=== PATIENT | female | born 1945 | race Caucasian/White ===

== ENCOUNTER 2017-04-10 13:42 | Inpatient (IN) | payer OTHER ==
[2017-04-10 13:49] VITALS: BMI 26.3
[2017-04-10 15:12] LABS: BASOPHIL 0.6 % (0-2.0); EOSINOPHIL 1.9 % (0-4.5); MCH 28.7 pg (25.7-33.7); MCHC 33.5 g/dl (32.0-36.0); MEAN CELL VOLUME 85.9 fl (80-96); MEAN PLT VOLUME 7.7 fl (7.5-11.1); PLATELET COUNT 320 K/MM3 (134-434); WHITE BLOOD COUNT 8.8 K/mm3 (4.0-10.0)
--- NOTE | 2017-04-10 15:29 | PDOC ---
History of Present Illness - General History Source: Patient Exam Limitations: No Limitations - History of Present Illness Initial Comments: 04/10/17 15:32 The patient is a 71 year old female with a significant past medical history of hypertension, hyperlipidemia, and chronic headache, who presents to the ER with left sided headache for one day and left sided pain and numbness for five days. Patient states she was doing an XR of her back today and reports she was red to the face with high blood pressure. She states the numbness and pain to the left leg, left arm, left chest wall, and left face happened five days ago. Patient states she was not able to visit Dr. Velasquez for the symptoms. Patient admits she has not taken any HTN medication today. Denies any surgical history Denies fever, chills Denies nausea, vomiting, diarrhea Denies changes in speech Denies changes in vision Denies trauma PCP: Dr. Velasquez <Felisha Sears - Last Filed: 04/10/17 16:18> - General History Source: Patient Exam Limitations: No Limitations <Crystal Romero - Last Filed: 04/10/17 16:39> - General Chief Complaint: Head/Neck problem Stated Complaint: FACE PAIN/left side numbness/headaneche Time Seen by Provider: 04/10/17 14:07 Past History <Felisha Sears - Last Filed: 04/10/17 16:18> - Past Medical History Asthma: Yes CVA: Yes (CVA) Diabetes: Yes GI Disorders: Yes (hiatal hernia) HTN: Yes Hypercholesterolemia: Yes Psychiatric Problems: Yes (ANXIETY/DEPRESSION) Suicide Attempt (Hx): No - Psycho/Social/Smoking Cessation Hx Anxiety: No Suicidal Ideation: No Smoking Status: No Smoking History: Never smoked Have you smoked in the past 12 months: No Number of Cigarettes Smoked Daily: 0 Information on smoking cessation initiated: No Hx Alcohol Use: No Drug/Substance Use Hx: No Substance Use Type: None Hx Substance Use Treatment: No <Crystal Romero - Last Filed: 04/10/17 16:39> - Past Medical History Allergies/Adverse Reactions: Allergies Allergy/AdvReac Type Severity Reaction Status Date / Time Penicillins Allergy Unknown Verified 04/10/17 13:48 Home Medications: Ambulatory Orders Bisacodyl [Laxative] 5 mg PO DAILY PRN 01/28/15 Ibuprofen [Motrin -] 600 mg PO BID 01/28/15 Losartan Potassium 100 mg PO DAILY 01/28/15 Meclizine HCl 25 mg PO TID 01/28/15 Methocarbamol [Robaxin -] 500 mg PO TID PRN #21 tablet 01/28/15 Naproxen [Naprosyn -] 500 mg PO BID PRN #28 tablet 01/28/15 Paroxetine HCl 10 mg PO AM 01/28/15 Sennosides [Senna] 2 tab PO DAILY PRN 01/28/15 Simvastatin [Zocor -] 40 mg PO HS 01/28/15 Aspirin [ASA -] 81 mg PO DAILY 10/22/15 Calcium Carbonate/Mag Hydrox [Mylanta Ultra Chew Tab] 1 each PO PRN PRN Calcium Carbonate/Vitamin D3 [Calcium + Vitamin D Tablet] 1 each PO BID Cetirizine HCl [Wal-Zyr] 10 mg PO DAILY 10/22/15 Chlorthalidone 25 mg PO DAILY 10/22/15 Multivitamins [Tab-A-Vit -] 1 tab PO DAILY 10/22/15 Omeprazole 20 mg PO DAILY 10/22/15 Ranitidine HCl [Zantac] 150 mg PO BID 10/22/15 Acetaminophen [Tylenol -] 650 mg PO Q6H #100 tablet 02/12/16 Review of Systems - Review of Systems Able to Perform ROS?: Yes Comments:: 04/10/17 15:32 GENERAL/CONSTITUTIONAL: No: fever, chills, weakness, loss of appetite. HEAD, EYES, EARS, NOSE AND THROAT: No: change in vision, ear pain, discharge, sore throat, throat swelling. CARDIOVASCULAR: No: chest pain, lightheadedness, palpitations, syncope RESPIRATORY: No: cough, shortness of breath, wheezing, hemoptysis, stridor. GASTROINTESTINAL: No: nausea, vomiting, abdominal cramping, diarrhea, rectal bleeding, constipation. GENITOURINARY: No: dysuria, hematuria, frequency, urgency, flank pain. MUSCULOSKELETAL: (+) numbness and pain to the left leg, left arm, left face, left chest wall, and left face. No: back pain, neck pain, joint pain, muscle swelling or pain SKIN AND BREASTS: No: lesions, pallor, rash or easy bruising. NEUROLOGIC: (+) headache. No: vertigo, paresthesias, weakness ENDOCRINE: No: unexplained weight gain or loss HEMATOLOGIC/LYMPHATIC: No: anemia, easy bleeding, swelling nodes <Uts,Felisha - Last Filed: 04/10/17 16:18> *Physical Exam - Vital Signs Last Vital Signs Temp Pulse Resp BP Pulse Ox 97.8 F 85 19 191/88 99 04/10/17 13:46 04/10/17 13:46 04/10/17 13:46 04/10/17 13:46 04/10/17 13:46 - Physical Exam Comments: 04/10/17 15:34 GENERAL: The patient is in no acute distress. HEAD: Normal with no signs of trauma. EYES: PERRLA, EOMI, sclera anicteric, conjunctiva clear. ENT: Ears normal, nares patent, oropharynx clear without exudates. Moist mucous membranes. NECK: Normal range of motion, supple without lymphadenopathy, JVD, or masses. LUNGS: Breath sounds equal, clear to auscultation bilaterally. No wheezes, and no crackles. HEART:Regular rate and rhythm, normal S1 and S2 without murmur, rub or gallop. ABDOMEN: Soft, nontender, normoactive bowel sounds. No guarding, no rebound. EXTREMITIES: Normal range of motion, no edema. No clubbing or cyanosis. No erythema, or tenderness. NEUROLOGICAL: Cranial nerves II through XII grossly intact. Normal speech. No focal neurological deficits. MUSCULOSKELETAL: 5/5 strength in upper and lower extremities. Decreased sensation in left leg. Back non-tender to palpation, no CVA tenderness SKIN: Warm, Dry, normal turgor, no rashes or lesions noted. <Tntr[place],Felisha - Last Filed: 04/10/17 16:18> - Vital Signs Last Vital Signs Temp Pulse Resp BP Pulse Ox 97.8 F 85 19 191/88 99 04/10/17 13:46 04/10/17 13:46 04/10/17 13:46 04/10/17 13:46 04/10/17 13:46 <Crystal Romero - Last Filed: 04/10/17 16:39> Heart Score/ECG Review #1 ECG reviewed & interpreted by me at: 16:03 General ECG Interpretation: Sinus Rhythm, Normal Rate, Normal Intervals, No acute ischemic changes <Crystal Romero - Last Filed: 04/10/17 16:39> ED Treatment Course - LABORATORY CBC & Chemistry Diagram: 04/10/17 15:00 04/10/17 15:00 - ADDITIONAL ORDERS Additional order review: 04/10/17 15:00 RBC 4.45 MCV 85.9 MCHC 33.5 RDW 13.0 MPV 7.7 Neutrophils % 65.0 Lymphocytes % 27.9 Monocytes % 4.6 Eosinophils % 1.9 Basophils % 0.6 - RADIOLOGY Radiograph Interpretation: 04/10/17 16:[address] impression reported by Dr. Genesis Avendano: Mild volume loss and the chronic microvascular ischemic changes without gross evidence of acute intracranial pathology. Correlate clinically. <Felisha Sears - Last Filed: 04/10/17 16:18> - LABORATORY CBC & Chemistry Diagram: 04/10/17 15:00 04/10/17 15:00 - ADDITIONAL ORDERS Additional order review: 04/10/17 15:00 RBC 4.45 MCV 85.9 MCHC 33.5 RDW 13.0 MPV 7.7 Neutrophils % 65.0 Lymphocytes % 27.9 Monocytes % 4.6 Eosinophils % 1.9 Basophils % 0.6 - RADIOLOGY Radiology Studies Ordered: Category Date Time Status HEAD CT WITHOUT CONTRAST [CT] Stat CT Scan 04/10/17 14:33 Ordered <Crystal Romero - Last Filed: 04/10/17 16:39> Medical Decision Making - Medical Decision Making 04/10/17 15:29 A portion of this note was documented by scribe services under my direction. I have reviewed the details of the note, within reason, and agree with the documentation with the following case summary and management plan written by me. Nursing documentation reviewed and incorporated into medical decision making 04/10/17 16:04 This pt is a 71 yo F h/o Asthma, CVA, DM, HTN, HLD who presents to the ER with a complaint of 1) left sided headache 2) elevated blood pressure 3) numbness of the left side of her body Pt denies head trauma Pt denies fevers or chills Laboratory Tests 04/10/17 04/10/17 15:00 15:00 WBC 8.8 Hgb 12.8 Hct 38.2 Plt Count 320 Neutrophils % 65.0 Lymphocytes % 27.9 Sodium 141 Potassium 3.9 Chloride 105 Carbon Dioxide 27 BUN 13 D Creatinine 0.7 Random Glucose 190 H D Creatine Kinase 64 Troponin I < 0.02 04/10/17 16:[address] 04/10/17 16:[address] consistent with chronic microvascular ischemic changes without acute intracranial patholgy Pt consistently states that she has had left sided facial, arm and leg numbness Based on chart review, she has had similar symptoms in the past Seen by neuro She has followed up in the pt but at some point her neurologist told her that she can not be seen any more because of her insurance Pt also has a headache Given Reglan and Toradol Case reviewed with Dr. Pa Will place on observation for eval of numbness 04/10/17 16:[address] Winslow Will give Aspirin 325mg Will give lipitor 80mg <Crystal Romero - Last Filed: 04/10/17 16:39> *DC/Admit/Observation/Transfer - Attestations Scribe Attestion: 04/10/17 15:35 Documentation prepared by Felisha Sears, acting as medical coding technician for Crystal Romero MD. <Felisha Sears - Last Filed: 04/10/17 16:18> - Discharge Dispostion Admit: Yes <Crystal Romero - Last Filed: 04/10/17 16:39> Diagnosis at time of Disposition: Numbness - Discharge Dispostion Condition at time of disposition: Stable - Referrals Referrals: Pauline Ennis MD [Primary Care Provider] -
[2017-04-10 15:32] LABS: ANION GAP 9 (8-16); BILIRUBIN,TOTAL 0.5 mg/dL (0.2-1.0); CO2 27 mmol/L (21-32); COCKROFT - GAULT 88.5275; CREATININE 0.7 mg/dL (0.55-1.02); GLUCOSE,RANDOM 190 mg/dL (74-106); SGOT/AST 17 U/L (15-37); SGPT/ALT 29 U/L (12-78)
[2017-04-10 15:35] LABS: ALK PHOS 72 U/L (45-117); TOT PROT 8.1 g/dl (6.4-8.2); TROPONIN I < 0.02 ng/ml (0.00-0.05)
[2017-04-10] MEDS ORDERED: KETOROLAC TROMETHAMINE 30 MG/1 ML VIAL IVPUSH ONE (16:25)
[2017-04-10] MEDS ORDERED: METOCLOPRAMIDE HCL INJECTION 10 MG/2 ML VIAL IVPB ONE (16:25)
--- NOTE | 2017-04-10 16:29 | EKG ---
Test Reason : Blood Pressure : / mmHG Vent. Rate : 083 BPM Atrial Rate : 083 BPM P-R Int : 166 ms QRS Dur : 094 ms QT Int : 366 ms P-R-T Axes : 067 016 048 degrees QTc Int : 430 ms NORMAL SINUS RHYTHM NORMAL ECG WHEN COMPARED WITH ECG OF 12-FEB-2016 12:59, NO SIGNIFICANT CHANGE WAS FOUND Confirmed by PRUDENCE HU MD ([id number]) on 04/10/2017 4:29:26 PM Referred By: Confirmed By:PRUDENCE HU MD
[2017-04-10] MEDS ORDERED: KETOROLAC TROMETHAMINE 30 MG/1 ML VIAL ONE (16:54)
[2017-04-10] MEDS ORDERED: METOCLOPRAMIDE HCL INJECTION 10 MG/2 ML VIAL ONE (16:54)
--- NOTE | 2017-04-10 19:23 | CON.NEURO ---
Consult - History of Present Illness History of Present Illness: left sided face arm and leg numbness for five days Hpi 71 year old female history of dm, htn hyperlipidemia and history of stroke had similar symptoms in past. recently she has not her bp medication today. She denies any dysphagia, dysarthria or diplopia or weakness. NO loss of consiouness . She had ct head in er and showed white matter changes. no acute bleed and her bp was high in ED. 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, Vertigo Cardio/Vascular: Yes: HTN, Hyperlipdemia Pulmonary: Yes: Asthma, Other (granulmatous lung disease) Gastrointestinal: Yes: GERD Psych: Yes: Depression, Other (Insomnia) - Alcohol/Substance Use Hx Alcohol Use: No History of Substance Use: reports: None - Smoking History Smoking history: Never smoked Have you smoked in the past 12 months: No Aproximately how many cigarettes per day: 0 - Social History ADL: Independent History of Recent Travel: No Home Medications - Allergies Allergies/Adverse Reactions: Allergies Allergy/AdvReac Type Severity Reaction Status Date / Time Penicillins Allergy Unknown Verified 04/10/17 13:48 - Home Medications Home Medications: Ambulatory Orders Bisacodyl [Laxative] 5 mg PO DAILY PRN 01/28/15 Ibuprofen [Motrin -] 600 mg PO BID 01/28/15 Losartan Potassium 100 mg PO DAILY 01/28/15 Meclizine HCl 25 mg PO TID 01/28/15 Methocarbamol [Robaxin -] 500 mg PO TID PRN #21 tablet 01/28/15 Naproxen [Naprosyn -] 500 mg PO BID PRN #28 tablet 01/28/15 Paroxetine HCl 10 mg PO AM 01/28/15 Sennosides [Senna] 2 tab PO DAILY PRN 01/28/15 Simvastatin [Zocor -] 40 mg PO HS 01/28/15 Aspirin [ASA -] 81 mg PO DAILY 10/22/15 Calcium Carbonate/Mag Hydrox [Mylanta Ultra Chew Tab] 1 each PO PRN PRN Calcium Carbonate/Vitamin D3 [Calcium + Vitamin D Tablet] 1 each PO BID Cetirizine HCl [Wal-Zyr] 10 mg PO DAILY 10/22/15 Chlorthalidone 25 mg PO DAILY 10/22/15 Multivitamins [Tab-A-Vit -] 1 tab PO DAILY 10/22/15 Omeprazole 20 mg PO DAILY 10/22/15 Ranitidine HCl [Zantac] 150 mg PO BID 10/22/15 Acetaminophen [Tylenol -] 650 mg PO Q6H #100 tablet 02/12/16 Physical Exam-Neuro Vital Signs: Vital Signs Temperature 97.9 F 04/10/17 17:23 Pulse Rate 88 04/10/17 17:23 Respiratory Rate 20 04/10/17 17:23 Blood Pressure 147/81 04/10/17 17:23 O2 Sat by Pulse Oximetry (%) 99 04/10/17 17:23 NIH Stroke Scale - Total Score NIH Stroke Scale Score: 0 Imaging - Results Cat Scan: Image Reviewed Assessment/Plan CC left sided face arm and leg numbness for five days Hpi 71 year old female history of dm, htn hyperlipidemia and history of stroke had similar symptoms in past. recently she has not her bp medication today. She denies any dysphagia, dysarthria or diplopia or weakness. NO loss of consiouness . She had ct head in er and showed white matter changes. no acute bleed and her bp was high in ED. Past Medical history as above , she also suffers from anxiety, hiatus hernia and asthma ROS reviwed in chart Home Medication Bisacodyl [Laxative] 5 mg PO DAILY PRN 01/28/15 Ibuprofen [Motrin -] 600 mg PO BID 01/28/15 Losartan Potassium 100 mg PO DAILY 01/28/15 Meclizine HCl 25 mg PO TID 01/28/15 Methocarbamol [Robaxin -] 500 mg PO TID PRN #21 tablet 01/28/15 Naproxen [Naprosyn -] 500 mg PO BID PRN #28 tablet 01/28/15 Paroxetine HCl 10 mg PO AM 01/28/15 Sennosides [Senna] 2 tab PO DAILY PRN 01/28/15 Simvastatin [Zocor -] 40 mg PO HS 01/28/15 Aspirin [ASA -] 81 mg PO DAILY 10/22/15 Calcium Carbonate/Mag Hydrox [Mylanta Ultra Chew Tab] 1 each PO PRN PRN Calcium Carbonate/Vitamin D3 [Calcium + Vitamin D Tablet] 1 each PO BID Cetirizine HCl [Wal-Zyr] 10 mg PO DAILY 10/22/15 Chlorthalidone 25 mg PO DAILY 10/22/15 Multivitamins [Tab-A-Vit -] 1 tab PO DAILY 10/22/15 Omeprazole 20 mg PO DAILY 10/22/15 Ranitidine HCl [Zantac] 150 mg PO BID 10/22/15 Acetaminophen [Tylenol -] 650 mg PO Q6H #100 tablet 02/12/16 Neurological Examination Last Vital Signs Temp Pulse Resp BP Pulse Ox 97.8 F 85 19 191/88 99 04/10/17 13:46 04/10/17 13:46 04/10/17 13:46 04/10/17 13:46 04/10/17 13:46 alert oriented x 3 follow command CN all intact, eomi and no facial asymmetry, no facial numbness Motor is normal sensation is subjective diminisehd on left ue and left lower extremity CT head reviewed Assessment Probable stroke, other possibility include anxiety vs worsenign of old stroke due to uncontrolled HTN Plan 1.MRI of brain to confirm new event 2. carotid ultrasound 3.contineu apsirin and statin for now 4.speech, pt and dvt prophylaxis 5.stroke education Please feel to call me if you ahve any question augustine parker md Neurology attending
[2017-04-11] MEDS ORDERED: BISACODYL 5 MG TABLET.DR (FP) PO PRN (00:46)
[2017-04-11] MEDS ORDERED: SENNOSIDES 8.6MG TABLET (FP) PO PRN (00:46)
[2017-04-11] MEDS ORDERED: ALBUTEROL SO4 2.5/IPRATROPIUM 0.5 INH SOL 3 ML VIAL.NEB. NEB PRN (00:55)
[2017-04-11] MEDS ORDERED: DEXTROSE 5%-0.45% SALINE 1,000 ML IV SCH (01:00)
[2017-04-11] MEDS: ASPIRIN 81 MG CHEWABLE TABLETS PO SCH (09:36)
[2017-04-11] MEDS: LOSARTAN POTASSIUM 50 MG TABLET (FP) PO SCH (09:36)
[2017-04-11] MEDS: LORATADINE 10 MG TABLET PO SCH (09:36)
[2017-04-11] MEDS: PANTOPRAZOLE 20 MG TABLET (FP) PO SCH (09:37)
[2017-04-11] MEDS: RANITIDINE HCL 150 MG TABLET (FP) PO SCH ×2 (09:37→21:46)
[2017-04-11] MEDS: HEPARIN NA (PORCINE) 5,000 UNITS/ML 1ML VIAL SQ SCH ×2 (09:37→21:43)
[2017-04-11] MEDS: CHLORTHALIDONE 25 MG TABLET PO SCH (09:37)
[2017-04-11] MEDS: PARoxetine HCL 10 MG TABLET (FP) PO SCH (09:37)
[2017-04-11] MEDS ORDERED: ALPRAZolam 0.25 MG TABLET PO ONE (12:15)
--- NOTE | 2017-04-11 14:44 | HP ---
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 Cardiovascular: Yes: HTN, Hyperlipdemia Pulmonary: Yes: Asthma, Other (granulmatous lung disease) Gastrointestinal: Yes: GERD Psych: Yes: Depression, Other (Insomnia) - Smoking History Smoking history: Never smoked Have you smoked in the past 12 months: No Aproximately how many cigarettes per day: 0 - Alcohol/Substance Use Hx Alcohol Use: No History of Substance Use: reports: None - Social History ADL: Independent History of Recent Travel: No Home Medications - Allergies Allergies/Adverse Reactions: Allergies Allergy/AdvReac Type Severity Reaction Status Date / Time Penicillins Allergy Unknown Verified 04/10/17 13:48 - Home Medications Home Medications: Ambulatory Orders Bisacodyl [Laxative] 5 mg PO DAILY PRN 01/28/15 Ibuprofen [Motrin -] 600 mg PO BID 01/28/15 Losartan Potassium 100 mg PO DAILY 01/28/15 Meclizine HCl 25 mg PO TID 01/28/15 Methocarbamol [Robaxin -] 500 mg PO TID PRN #21 tablet 01/28/15 Naproxen [Naprosyn -] 500 mg PO BID PRN #28 tablet 01/28/15 Paroxetine HCl 10 mg PO AM 01/28/15 Sennosides [Senna] 2 tab PO DAILY PRN 01/28/15 Simvastatin [Zocor -] 40 mg PO HS 01/28/15 Aspirin [ASA -] 81 mg PO DAILY 10/22/15 Calcium Carbonate/Mag Hydrox [Mylanta Ultra Chew Tab] 1 each PO PRN PRN Calcium Carbonate/Vitamin D3 [Calcium + Vitamin D Tablet] 1 each PO BID Cetirizine HCl [Wal-Zyr] 10 mg PO DAILY 10/22/15 Chlorthalidone 25 mg PO DAILY 10/22/15 Multivitamins [Tab-A-Vit -] 1 tab PO DAILY 10/22/15 Omeprazole 20 mg PO DAILY 10/22/15 Ranitidine HCl [Zantac] 150 mg PO BID 10/22/15 Acetaminophen [Tylenol -] 650 mg PO Q6H #100 tablet 02/12/16 Physical Examination Vital Signs: Vital Signs Temperature 98 F 04/11/17 09:00 Pulse Rate 70 04/11/17 09:00 Respiratory Rate 18 04/11/17 09:00 Blood Pressure 156/70 04/11/17 09:00 O2 Sat by Pulse Oximetry (%) 98 04/11/17 09:00
[2017-04-11] MEDS: ACETAMINOPHEN 325 MG TABLET (FP) PO PRN (18:40)
[2017-04-11] MEDS: ATORVASTATIN CA 20 MG TABLET (FP) PO SCH (21:43)
[2017-04-11] MEDS ORDERED: ATORVASTATIN CA 40 MG TABLET (FP) PO SCH (22:00)
[2017-04-12 07:39] LABS: BASOPHIL 0.4 % (0-2.0); EOSINOPHIL 2.5 % (0-4.5); MCH 29.2 pg (25.7-33.7); MCHC 33.9 g/dl (32.0-36.0); MEAN CELL VOLUME 86.2 fl (80-96); MEAN PLT VOLUME 7.8 fl (7.5-11.1); NEUTROPHILS 58.8 % (42.8-82.8); PLATELET COUNT 299 K/MM3 (134-434); RDW 13.1 % (11.6-15.6); WHITE BLOOD COUNT 8.3 K/mm3 (4.0-10.0)
[2017-04-12 08:06] LABS: ALBUMIN 3.5 g/dl (3.4-5.0); ANION GAP 10 (8-16); CO2 26 mmol/L (21-32); GLUCOSE,RANDOM 136 mg/dL (74-106); SGOT/AST 20 U/L (15-37); SGPT/ALT 27 U/L (12-78)
[2017-04-12 08:08] LABS: ALK PHOS 66 U/L (45-117); BILIRUBIN,TOTAL 0.5 mg/dL (0.2-1.0); COCKROFT - GAULT 103.2835; CREATININE 0.6 mg/dL (0.55-1.02); TOT PROT 7.1 g/dl (6.4-8.2)
[2017-04-12] MEDS ORDERED: PT OWN MED DRAWER 7, Y5N ONE ×2 (10:08→17:57)
[2017-04-12] MEDS: PANTOPRAZOLE 20 MG TABLET (FP) PO SCH (10:19)
[2017-04-12] MEDS: RANITIDINE HCL 150 MG TABLET (FP) PO SCH ×2 (10:19→21:58)
[2017-04-12] MEDS: CHLORTHALIDONE 25 MG TABLET PO SCH (10:20)
[2017-04-12] MEDS: LOSARTAN POTASSIUM 50 MG TABLET (FP) PO SCH (10:20)
[2017-04-12] MEDS: HEPARIN NA (PORCINE) 5,000 UNITS/ML 1ML VIAL SQ SCH ×2 (10:20→21:58)
[2017-04-12] MEDS: ASPIRIN 81 MG CHEWABLE TABLETS PO SCH (10:20)
[2017-04-12] MEDS: LORATADINE 10 MG TABLET PO SCH (10:20)
[2017-04-12] MEDS: PARoxetine HCL 10 MG TABLET (FP) PO SCH (10:21)
--- NOTE | 2017-04-12 15:40 | PN ---
Progress Note, Physician - Current Medication List Current Medications: Active Medications Acetaminophen (Tylenol -) 650 mg PO Q6H PRN Last Admin: 04/11/17 18:40 Dose: 650 mg Albuterol/Ipratropium (Duoneb -) 1 amp NEB Q6H PRN PRN Reason: SHORTNESS OF BREATH Aspirin (Asa -) 81 mg PO DAILY [facility] Last Admin: 04/12/17 10:20 Dose: 81 mg Atorvastatin Calcium (Lipitor -) 20 mg PO HS [facility] Last Admin: 04/11/17 21:43 Dose: 20 mg Atorvastatin Calcium (Lipitor -) 40 mg PO HS [facility] Bisacodyl (Dulcolax -) 5 mg PO DAILY PRN PRN Reason: CONSTIPATION Chlorthalidone (Hygroton -) 25 mg PO DAILY [facility] Last Admin: 04/12/17 10:20 Dose: 25 mg Heparin Sodium (Porcine) (Heparin -) 5,000 unit SQ BID [facility] Last Admin: 04/12/17 10:20 Dose: 5,000 unit Loratadine (Claritin -) 10 mg PO DAILY [facility] Last Admin: 04/12/17 10:20 Dose: 10 mg Losartan Potassium (Cozaar -) 100 mg PO DAILY [facility] Last Admin: 04/12/17 10:20 Dose: 100 mg Pantoprazole Sodium (Protonix -) 20 mg PO DAILY [facility] Last Admin: 04/12/17 10:19 Dose: 20 mg Paroxetine HCl (Paxil -) 10 mg PO DAILY [facility] Last Admin: 04/12/17 10:21 Dose: Not Given Ranitidine HCl (Zantac -) 150 mg PO BID [facility] Last Admin: 04/12/17 10:19 Dose: 150 mg Senna (Senna -) 2 tab PO DAILY PRN PRN Reason: CONSTIPATION Last Admin: 04/11/17 21:52 Dose: 2 tab - Objective Vital Signs: Vital Signs Temperature 98.2 F 04/12/17 14:47 Pulse Rate 87 04/12/17 14:47 Respiratory Rate 20 04/12/17 14:47 Blood Pressure 145/74 04/12/17 14:47 O2 Sat by Pulse Oximetry (%) 97 04/12/17 10:00 Labs: CBC, BMP 04/12/17 05:42 04/12/17 05:42
[2017-04-12] MEDS: ACETAMINOPHEN 325 MG TABLET (FP) PO PRN (19:28)
[2017-04-12] MEDS: ATORVASTATIN CA 20 MG TABLET (FP) PO SCH (21:58)
[2017-04-13] MEDS: LORATADINE 10 MG TABLET PO SCH (09:52)
[2017-04-13] MEDS: ASPIRIN 81 MG CHEWABLE TABLETS PO SCH (09:52)
[2017-04-13] MEDS: HEPARIN NA (PORCINE) 5,000 UNITS/ML 1ML VIAL SQ SCH (09:53)
[2017-04-13] MEDS: PANTOPRAZOLE 20 MG TABLET (FP) PO SCH (09:53)
[2017-04-13] MEDS: CHLORTHALIDONE 25 MG TABLET PO SCH (09:53)
[2017-04-13] MEDS: PARoxetine HCL 10 MG TABLET (FP) PO SCH (09:54)
[2017-04-13] MEDS: RANITIDINE HCL 150 MG TABLET (FP) PO SCH (09:54)
[2017-04-13] MEDS: LOSARTAN POTASSIUM 50 MG TABLET (FP) PO SCH (09:56)
[2017-04-13 19:29] VITALS: BP 142/77; PULSE 78; TEMP 98.8
== END 2017-04-13 18:34 | disposition home or self-care (01) | DRG 58 ==
LOC: JER 13:42 → JERBED 16:39 → J4W 20:29 → OBSVTOIN 04-11 00:52
PROVIDERS: ADMIT Internal Medicine; ATTEND Internal Medicine
DX: R20.0 Anesthesia of skin (principal); I10 Essential (primary) hypertension; E78.5 Hyperlipidemia, unspecified; R51 Headache; E11.9 Type 2 diabetes mellitus without complications; J45.909 Unspecified asthma, uncomplicated; F41.8 Other specified anxiety disorders; K44.9 Diaphragmatic hernia without obstruction or gangrene; G43.809 Other migraine, not intractable, without status migrainosus; R42 Dizziness and giddiness; K21.9 Gastro-esophageal reflux disease without esophagitis; G47.00 Insomnia, unspecified; J98.4 Other disorders of lung; Z86.73 Personal history of transient ischemic attack (TIA), and cerebral infarction without residual deficits
CPT/HCPCS: 36415; 70450-TC; 70551-TC; 71010-TC; 80053; 82550; 84484; 85025; 93005; 93010; 93306-TC; 93880-TC; 97116-GP; 97161-GP; 99283-25; G0378; J1644

== ENCOUNTER 2017-11-04 04:26 | Observation (INO) | payer OTHER ==
--- NOTE | 2017-11-04 04:32 | PDOC ---
History of Present Illness - General History Source: Patient, Family - History of Present Illness Initial Comments: 11/04/17 05:23 Patient is a 72-year-old female with past medical history of coronary artery disease, hypertension, hyperlipidemia, asthma, depression who presents to the emergency department for sudden onset chest pain. Patient states that her pain began 45 minutes prior to her arrival in the emergency department. The pain woke her from sleep. She did not take any medication for her pain. She states that the pain is in the middle of her chest. The pain was so bad that she vomited. Patient states that she should be due for a stress test in the next week or so. Denies shortness of breath, fever, difficulty breathing, palpitations, edema, constipation, diarrhea, frequency, urgency, hematuria. Pt. states she has not taken any of her medications this morning. Pt. does not know what medications she takes. Transfer Table Operator:Dr. Lauren <Hillary De La Rosa - Last Filed: 11/04/17 06:30> <Prabha Miramontes - Last Filed: 11/04/17 11:48> - General Chief Complaint: Chest Pain Stated Complaint: CHEST PAIN Time Seen by Provider: 11/04/17 04:31 Past History - Travel Traveled outside of the country in the last 30 days: No Close contact w/someone who was outside of country & ill: No - Past Medical History Asthma: Yes CVA: Yes (CVA) Diabetes: Yes GI Disorders: Yes (hiatal hernia) HTN: Yes Hypercholesterolemia: Yes Psychiatric Problems: Yes (ANXIETY/DEPRESSION) - Suicide/Smoking/Psychosocial Hx Smoking Status: No Smoking History: Never smoked Have you smoked in the past 12 months: No Number of Cigarettes Smoked Daily: 0 Hx Alcohol Use: No Drug/Substance Use Hx: No Substance Use Type: None Hx Substance Use Treatment: No <Hillary De La Rosa - Last Filed: 11/04/17 06:30> <Prabha Miramontes - Last Filed: 11/04/17 11:48> - Past Medical History Allergies/Adverse Reactions: Allergies Allergy/AdvReac Type Severity Reaction Status Date / Time Penicillins Allergy Unknown Verified 11/04/17 04:38 apple Allergy Uncoded 11/04/17 04:38 Home Medications: Ambulatory Orders Bisacodyl [Laxative] 5 mg PO DAILY PRN 01/28/15 Ibuprofen [Motrin -] 600 mg PO BID 01/28/15 Losartan Potassium 100 mg PO DAILY 01/28/15 Meclizine HCl 25 mg PO TID 01/28/15 Paroxetine HCl 10 mg PO AM 01/28/15 Sennosides [Senna -] 2 tab PO DAILY PRN 01/28/15 Simvastatin [Zocor -] 40 mg PO HS 01/28/15 Aspirin [ASA -] 81 mg PO DAILY 10/22/15 Calcium Carbonate/Mag Hydrox [Mylanta Ultra Chew Tab] 1 each PO PRN PRN Calcium Carbonate/Vitamin D3 [Calcium 600-Vit D3 200 Tablet] 1 each PO BID 10/22 Cetirizine HCl [Wal-Zyr] 10 mg PO DAILY 10/22/15 Chlorthalidone 25 mg PO DAILY 10/22/15 Multivitamins [Multivit ([facility] Formulary)] 1 tab PO DAILY 10/22/15 Omeprazole 20 mg PO DAILY 10/22/15 Ranitidine HCl [Zantac] 150 mg PO BID 10/22/15 Acetaminophen [Tylenol .Regular Strength -] 650 mg PO Q6H #100 tablet 02/12/16 Review of Systems - Review of Systems Able to Perform ROS?: Yes Comments:: 11/04/17 05:20 CONSTITUTIONAL: Absent: fever, chills, diaphoresis, generalized weakness, malaise, loss of appetite HEENT: Absent: rhinorrhea, nasal congestion, throat pain, throat swelling, difficulty swallowing, mouth swelling, ear pain, eye pain, visual Changes CARDIOVASCULAR: Present: chest pain Absent: loss of consciousness, palpitations, irregular heart rate, peripheral edema RESPIRATORY: Absent: cough, shortness of breath, dyspnea with exertion, orthopnea, wheezing, stridor, hemoptysis GASTROINTESTINAL: Absent: abdominal pain, abdominal distension, nausea, vomiting, diarrhea, constipation, melena, hematochezia GENITOURINARY: Absent: dysuria, frequency, urgency, hesitancy, hematuria, flank pain, genital pain MUSCULOSKELETAL: Absent: myalgia, arthralgia, joint swelling SKIN: Absent: rash, itching, pallor HEMATOLOGIC/IMMUNOLOGIC: Absent: easy bleeding, easy bruising, lymphadenopathy, frequent infections ENDOCRINE: Absent: unexplained weight gain, unexplained weight loss, heat intolerance, cold intolerance NEUROLOGIC: Absent: headache, focal weakness or paresthesias, dizziness, unsteady gait, seizure, mental status changes, bladder or bowel incontinence PSYCHIATRIC: Absent: anxiety, depression, suicidal or homicidal ideation, hallucinations. Is the patient limited E[place]an proficient: No <Hillary De La Rosa - Last Filed: 11/04/17 06:30> *Physical Exam - Physical Exam Comments: 11/04/17 05:20 GENERAL: Well developed, well nourished. Awake and alert. Mild distress, vomited in ED HEENT: Normocephalic, atraumatic. PERRLA, EOMI. No conjunctival pallor. Sclera are non- icteric. Moist mucous membranes. Oropharynx is clear. NECK: Supple. Full ROM. No JVD. Carotid pulses 2+ and symmetric, without bruits. No thyromegaly. No lymphadenopathy. CARDIOVASCULAR: Regular rate and rhythm. No murmurs, rubs, or gallops. Distal pulses are 2+ and symmetric. PULMONARY: No evidence of respiratory distress. Lungs clear to auscultation bilaterally. No wheezing, rales or rhonchi. ABDOMINAL: Soft. Non-tender. Non-distended. No rebound or guarding. No organomegaly. Normoactive bowel sounds. MUSCULOSKELETAL Normal range of motion at all joints. No bony deformities or tenderness. No CVA tenderness. EXTREMITIES: No cyanosis. No clubbing. No edema. No calf tenderness. SKIN: Warm and dry. Normal capillary refill. No rashes. No jaundice. NEUROLOGICAL: Alert, awake, appropriate. Cranial nerves 2-12 intact. No deficits to light touch and temperature in face, upper extremities and lower extremities. No motor deficits in the in face, upper extremities and lower extremities. Normoreflexic in the upper and lower extremities. Normal speech. Toes are down- going bilaterally. Gait is normal without ataxia. PSYCHIATRIC: Cooperative. Good eye contact. Appropriate mood and affect. <Hillary De La Rosa - Last Filed: 11/04/17 06:30> - Vital Signs Last Vital Signs Temp Pulse Resp BP Pulse Ox 98.1 F 92 H 18 157/80 100 11/04/17 08:32 11/04/17 08:32 11/04/17 08:32 11/04/17 08:32 11/04/17 08:32 <Prabha Miramontes - Last Filed: 11/04/17 11:48> Heart Score/ECG Review - History History: Slightly suspicious - Electrocardiogram EKG: Normal - Age Age: >/= 65 - Risk Factors Risk Factors Heart Score: Yes Hx Hypercholesterolemia, Yes Hx Hypertension Based on the list above the patient has:: 1-2 risk factors - Troponin Troponin: </= normal limit - Score Heart Score - Total: 3 <Hillary De La Rosa - Last Filed: 11/04/17 06:30> ED Treatment Course - LABORATORY CBC & Chemistry Diagram: 11/04/17 04:41 11/04/17 04:41 <Hillary De La Rosa - Last Filed: 11/04/17 06:30> - LABORATORY CBC & Chemistry Diagram: 11/04/17 04:41 11/04/17 04:41 - ADDITIONAL ORDERS Additional order review: Laboratory Results 11/04/17 11/04/17 11/04/17 09:15 04:42 04:41 PT with INR INR Sodium Potassium Chloride Carbon Dioxide Anion Gap BUN Creatinine Creat Clearance w eGFR Random Glucose Calcium Magnesium Total Bilirubin AST ALT Alkaline Phosphatase Creatine Kinase 86 93 Troponin I < 0.02 < 0.02 Total Protein Albumin Urine Color Ltyellow Urine Appearance Slcloudy Urine pH 6.0 Ur Specific [place] 1.014 Urine Protein 1+ H Urine Glucose (UA) Negative Urine Ketones Negative Urine Blood Negative Urine Nitrite Negative Urine Bilirubin Negative Urine Urobilinogen Negative Ur Leukocyte Esterase 1+ H Urine WBC (Auto) 14 Urine RBC (Auto) 3 Ur Epithelial Cells Few Urine Mucus Rare 11/04/17 11/04/17 04:41 04:41 PT with INR 11.80 INR 1.04 Sodium 138 Potassium 3.8 Chloride 104 Carbon Dioxide 27 Anion Gap 7 L BUN 15 D Creatinine 1.0 D Creat Clearance w eGFR 54.81 Random Glucose 109 H Calcium 8.7 Magnesium 2.3 Total Bilirubin 0.4 AST 19 ALT 30 Alkaline Phosphatase 64 Creatine Kinase Troponin I Total Protein 7.8 Albumin 3.9 Urine Color Urine Appearance Urine pH Ur Specific [place] Urine Protein Urine Glucose (UA) Urine Ketones Urine Blood Urine Nitrite Urine Bilirubin Urine Urobilinogen Ur Leukocyte Esterase Urine WBC (Auto) Urine RBC (Auto) Ur Epithelial Cells Urine Mucus 11/04/17 04:41 RBC 4.22 MCV 86.2 MCHC 33.5 RDW 12.9 MPV 7.4 L Neutrophils % 51.5 Lymphocytes % 38.1 Monocytes % 7.1 Eosinophils % 2.8 Basophils % 0.5 - Medications Given in the ED: ED Medications Discontinued Medications Generic Name Dose Route Start Last Admin Trade Name Millie PRN Reason Stop Dose Admin Aspirin 325 mg 11/04/17 05:19 11/04/17 05:38 Asa - PO 11/04/17 05:20 325 mg ONCE ONE Administration Sodium Chloride 1,000 mls @ 1,000 mls/hr 11/04/17 04:34 11/04/17 05:04 Normal Saline - IV 11/04/17 05:33 1,000 mls/hr ASDIR STA Administration Ondansetron HCl 4 mg 11/04/17 04:34 11/04/17 05:05 Zofran Injection IVPUSH 11/04/17 04:35 4 mg ONCE ONE Administration <Prabha Miramontes - Last Filed: 11/04/17 11:48> Medical Decision Making - Medical Decision Making 11/04/17 05:24 Patient is a 72-year-old female with past medical she of hypertension,coronary artery disease, hyperlipidemia, depression who presents to the emergency department with sudden onset chest pain. We'll rule out ACS at this time. Chest pain is nonreproducible on exam. DDX includes but is not limited to GERD, Explained to patient that we'll most likely need to stay for second set of blood work. EKG shows tachycardia rate of 108 normal sinus rhythm normal axis normal intervals, no acute ST-T wave changes. 1.CBC, CMP, troponin, PT/INR, magnesium UA 2.Zofran, aspirin 3.chest x-ray 4.second troponin at 7:30. 5.reevaluate <Hillary De La Rosa - Last Filed: 11/04/17 06:30> *DC/Admit/Observation/Transfer <Hillary De La Rosa - Last Filed: 11/04/17 06:30> <Prabha Miramontes - Last Filed: 11/04/17 11:48> Diagnosis at time of Disposition: Chest pain - Referrals Referrals: Pauline Ennis MD [Primary Care Provider] - - Patient Instructions - Post Discharge Activity
[2017-11-04] MEDS ORDERED: SODIUM CHLORIDE 1,000 ML IV STA (04:34)
[2017-11-04] MEDS ORDERED: ONDANSETRON 4 MG/2 ML VIAL IVPUSH ONE (04:34)
[2017-11-04] MEDS ORDERED: ONDANSETRON 4 MG/2 ML VIAL ONE ×2 (04:42→04:59)
[2017-11-04 05:06] LABS: BASO % 0.5 % (0-2.0); EOS % 2.8 % (0-4.5); HEMATOCRIT 36.4 % (32.4-45.2); HEMOGLOBIN 12.2 GM/dL (10.7-15.3); LYMPH % 38.1 % (8-40); MCH 28.9 pg (25.7-33.7); MCHC 33.5 g/dl (32.0-36.0); MEAN CELL VOLUME 86.2 fl (80-96); MEAN PLT VOLUME 7.4 fl (7.5-11.1); MONO % 7.1 % (3.8-10.2); NEUT % 51.5 % (42.8-82.8); PLATELET COUNT 297 K/MM3 (134-434); RBC 4.22 M/mm3 (3.60-5.2); RDW 12.9 % (11.6-15.6); WHITE BLOOD COUNT 8.9 K/mm3 (4.0-10.0)
[2017-11-04] MEDS ORDERED: ASPIRIN 81 MG CHEWABLE TABLETS PO ONE (05:19)
[2017-11-04 05:25] LABS: INR 1.04 (0.82-1.09); PROTHROMBIN TIME (PATIENT) 11.8 SEC (9.98-11.88)
[2017-11-04 05:29] LABS: URINE APPEARANCE SLCLOUDY; URINE BILIRUBIN NEGATIVE (NEGATIVE); URINE BLOOD NEGATIVE (NEGATIVE); URINE COLOR LTYELLOW; URINE GLUCOSE (UA) NEGATIVE (NEGATIVE); URINE KETONE NEGATIVE (NEGATIVE); URINE NITRITE NEGATIVE (NEGATIVE); URINE UROBILINOGEN NEGATIVE mg/dL (0.2-1.0)
[2017-11-04] MEDS ORDERED: ASPIRIN 325 MG TABLET ONE (05:31)
[2017-11-04 05:34] LABS: URINE LEUK ESTERASE 2+ (NEGATIVE); URINE PROTEIN 1+ (NEGATIVE)
[2017-11-04 05:36] LABS: EPI CELLS FEW /HPF (FEW); URINE MUCUS RARE
[2017-11-04 05:41] LABS: ALBUMIN 3.9 g/dl (3.4-5.0); ALK PHOS 64 U/L (45-117); ANION GAP 7 (8-16); BILIRUBIN,TOTAL 0.4 mg/dL (0.2-1.0); BLOOD UREA NITROGEN 15 mg/dL (7-18); CALCIUM 8.7 mg/dL (8.5-10.1); CHLORIDE 104 mmol/L (98-107); CO2 27 mmol/L (21-32); GLUCOSE,RANDOM 109 mg/dL (74-106); MAGNESIUM 2.3 mg/dL (1.8-2.4); POTASSIUM 3.8 mmol/L (3.5-5.1); SGOT/AST 19 U/L (15-37); SGPT/ALT 30 U/L (12-78); SODIUM 138 mmol/L (136-145); TOT PROT 7.8 g/dl (6.4-8.2)
--- NOTE | 2017-11-04 07:43 | PDOC ---
ED Treatment Course - LABORATORY CBC & Chemistry Diagram: 11/04/17 04:41 11/04/17 04:41 - ADDITIONAL ORDERS Additional order review: Laboratory Results 11/04/17 11/04/17 11/04/17 04:42 04:41 04:41 PT with INR INR Sodium 138 Potassium 3.8 Chloride 104 Carbon Dioxide 27 Anion Gap 7 L BUN 15 D Creatinine 1.0 D Creat Clearance w eGFR 54.81 Random Glucose 109 H Calcium 8.7 Magnesium 2.3 Total Bilirubin 0.4 AST 19 ALT 30 Alkaline Phosphatase 64 Creatine Kinase 93 Troponin I < 0.02 Total Protein 7.8 Albumin 3.9 Urine Color Ltyellow Urine Appearance Slcloudy Urine pH 6.0 Ur Specific [place] 1.014 Urine Protein 1+ H Urine Glucose (UA) Negative Urine Ketones Negative Urine Blood Negative Urine Nitrite Negative Urine Bilirubin Negative Urine Urobilinogen Negative Urine WBC (Auto) 14 Urine RBC (Auto) 3 Ur Epithelial Cells Few Urine Mucus Rare 11/04/17 04:41 PT with INR 11.80 INR 1.04 Sodium Potassium Chloride Carbon Dioxide Anion Gap BUN Creatinine Creat Clearance w eGFR Random Glucose Calcium Magnesium Total Bilirubin AST ALT Alkaline Phosphatase Creatine Kinase Troponin I Total Protein Albumin Urine Color Urine Appearance Urine pH Ur Specific [place] Urine Protein Urine Glucose (UA) Urine Ketones Urine Blood Urine Nitrite Urine Bilirubin Urine Urobilinogen Urine WBC (Auto) Urine RBC (Auto) Ur Epithelial Cells Urine Mucus 11/04/17 04:41 RBC 4.22 MCV 86.2 MCHC 33.5 RDW 12.9 MPV 7.4 L Neutrophils % 51.5 Lymphocytes % 38.1 Monocytes % 7.1 Eosinophils % 2.8 Basophils % 0.5 - Medications Given in the ED: ED Medications Discontinued Medications Generic Name Dose Route Start Last Admin Trade Name Freq PRN Reason Stop Dose Admin Aspirin 325 mg 11/04/17 05:19 11/04/17 05:38 Asa - PO 11/04/17 05:20 325 mg ONCE ONE Administration Sodium Chloride 1,000 mls @ 1,000 mls/hr 11/04/17 04:34 11/04/17 05:04 Normal Saline - IV 11/04/17 05:33 1,000 mls/hr ASDIR STA Administration Ondansetron HCl 4 mg 11/04/17 04:34 11/04/17 05:05 Zofran Injection IVPUSH 11/04/17 04:35 4 mg ONCE ONE Administration Progress Note - Progress Note Progress Note: I have received report from LEONCIO De La Rosa regarding this patient. Pt's initial chief complaint: chest pain Pt's work up completed prior to sign out: labs, CXR, EKG Pt treatment given from prior staff: Zofran, Aspirin, IV fluids Pt plan to be completed: Awaiting 2nd troponin then will call Dr. Lauren. Dispo: Pending Medical Decision Making - Medical Decision Making A/P: 72 y/o afebrile female with PMH CAD, HTN, HLD, asthma, depression presented to the ER with sudden onset chest pain. The patient was initially assessed by LEONCIO De La Rosa. EKG, labs, CXR were all performed and were WNLs. Awaiting 2nd troponin then will call patient's coating inspector, Dr. Lauren. 2nd troponin negative. Spoke with Dr. Oh, covering for Dr. Lauren. She would like the patient to remain in ED obs until Dr. Lauren can see her at 2pm and dispo. The patient is aware of this plan and is amenable. She states she no longer has any chest pain. Spoke with Dr. Lauren. He states the patient has very poor follow up and is scheduled for a stress test in his office on 11/10/17. He is ok with her being discharged home provided she agrees to keep her appointment for her stress test and to call him immediately if her chest pain returns. Spoke with ALEXANDRO Kauffman, admitting hospitalist, and she is not comfortable sending her home so we will send her to tele obs. All plans and instructions were explained to the patient in Armenian. *DC/Admit/Observation/Transfer Diagnosis at time of Disposition: Chest pain Qualifiers: Chest pain type: unspecified Qualified Code(s): R07.9 - Chest pain, unspecified - Discharge Dispostion Condition at time of disposition: Improved Admit: Yes - Referrals - Patient Instructions - Post Discharge Activity
--- NOTE | 2017-11-04 12:49 | HP ---
CHIEF COMPLAINT: Chest pain HISTORY OF PRESENT ILLNESS: 72 year-old female with a PMH significant for HTN, HLD, asthma, granulomatous lung disease, GERD, and depression. Patient presented to the ED today with a complaint of severe, non-radiating mid-sternal chest pain that awoke her from sleep at arond 3:30am. She described the pain as burning with a sour taste in her mouth. She also felt cold and SOB. The pain lasted about 10 minutes. She vomited and the pain resolved. ER course was notable for: (1) Troponins neg x 2 (2) CXR unremarkable (3) ECG: sinus rhythm, no indication of acute ischemic event Recent Travel: No PAST MEDICAL HISTORY: Hypertension Hyperlipidemia Fatty liver Hiatal hernia GERD Asthma Chronic granulomatous lung disease Spinal stenosis Restless leg syndrome Anxiety/depression Vertigo Migraine PAST SURGICAL HISTORY: None reported Social History Smoking: no Alcohol: no Drugs: no Family History: Allergies Penicillins Allergy (Unknown, Verified 11/04/17 04:38) apple Allergy (Uncoded 11/04/17 04:38) HOME MEDICATIONS: Medication Instructions Recorded Bisacodyl [Laxative] 5 mg PO DAILY PRN 01/28/15 Ibuprofen [Motrin -] 600 mg PO BID 01/28/15 Losartan Potassium 100 mg PO DAILY 01/28/15 Meclizine HCl 25 mg PO TID 01/28/15 Paroxetine HCl 10 mg PO AM 01/28/15 Sennosides [Senna -] 2 tab PO DAILY PRN 01/28/15 Simvastatin [Zocor -] 40 mg PO HS 01/28/15 Aspirin [ASA -] 81 mg PO DAILY 10/22/15 Calcium Carbonate/Mag Hydrox 1 each PO PRN PRN 10/22/15 [Mylanta Ultra Chew Tab] Calcium Carbonate/Vitamin D3 1 each PO BID 10/22/15 [Calcium 600-Vit D3 200 Tablet] Cetirizine HCl [Wal-Zyr] 10 mg PO DAILY 10/22/15 Chlorthalidone 25 mg PO DAILY 10/22/15 Multivitamins [Multivit ([facility] 1 tab PO DAILY 10/22/15 Formulary)] Omeprazole 20 mg PO DAILY 10/22/15 Ranitidine HCl [Zantac] 150 mg PO BID 10/22/15 Acetaminophen [Tylenol .Regular 650 mg PO Q6H #100 tablet 02/12/16 Strength -] REVIEW OF SYSTEMS CONSTITUTIONAL: Absent: fever, chills, diaphoresis, generalized weakness, malaise, loss of appetite, weight change HEENT: Absent: rhinorrhea, nasal congestion, throat pain, throat swelling, difficulty swallowing, mouth swelling, ear pain, eye pain, visual changes CARDIOVASCULAR: +chest pain, SOB Absent: syncope, palpitations, irregular heart rate, lightheadedness, peripheral edema RESPIRATORY: Absent: cough, shortness of breath, dyspnea with exertion, orthopnea, wheezing, stridor, hemoptysis GASTROINTESTINAL: Absent: abdominal pain, abdominal distension, nausea, vomiting, diarrhea, constipation, melena, hematochezia GENITOURINARY: Absent: dysuria, frequency, urgency, hesitancy, hematuria, flank pain, genital pain MUSCULOSKELETAL: Absent: myalgia, arthralgia, joint swelling, back pain, neck pain SKIN: Absent: rash, itching, pallor HEMATOLOGIC/IMMUNOLOGIC: Absent: easy bleeding, easy bruising, lymphadenopathy, frequent infections ENDOCRINE: Absent: unexplained weight gain, unexplained weight loss, heat intolerance, cold intolerance NEUROLOGIC: Absent: headache, focal weakness or paresthesias, dizziness, unsteady gait, seizure, mental status changes, bladder or bowel incontinence PSYCHIATRIC: Absent: anxiety, depression, suicidal or homicidal ideation, hallucinations. PHYSICAL EXAMINATION Vital Signs - 24 hr 11/04/17 11/04/17 04:39 08:32 Temperature 98.3 F 98.1 F Pulse Rate 100 H 92 H Pulse Rate [ 92 H Apical] Respiratory 20 18 Rate Blood Pressure 183/89 Blood Pressure 157/80 [Left Arm] O2 Sat by Pulse 97 100 Oximetry (%) GENERAL: Awake, alert, and fully oriented, in no acute distress. HEAD: Normal with no signs of trauma. EYES: Pupils equal, round and reactive to light, extraocular movements intact, sclera anicteric, conjunctiva clear. No lid lag. EARS, NOSE, THROAT: Ears normal, nares patent, oropharynx clear without exudates. Moist mucous membranes. NECK: Normal range of motion, supple without lymphadenopathy, JVD, or masses. LUNGS: Breath sounds equal, clear to auscultation bilaterally. No wheezes, and no crackles. No accessory muscle use. HEART: Regular rate and rhythm, normal S1 and S2 without murmur, rub or gallop. ABDOMEN: Soft, nontender, not distended, normoactive bowel sounds, no guarding, no rebound, no masses. No hepatomegaly or splenomegaly. MUSCULOSKELETAL: Normal range of motion at all joints. No bony deformities or tenderness. No CVA tenderness. UPPER EXTREMITIES: 2+ pulses, warm, well-perfused. No cyanosis. No clubbing. No peripheral edema. LOWER EXTREMITIES: 2+ pulses, warm, well-perfused. No calf tenderness. No peripheral edema. NEUROLOGICAL: Cranial nerves II-XII intact. Normal speech. Moves all extremities freely. PSYCHIATRIC: Cooperative. Good eye contact. Appropriate mood and affect. SKIN: Warm, dry, normal turgor Laboratory Results - last 24 hr 11/04/17 11/04/17 11/04/17 04:41 04:41 04:41 WBC 8.9 RBC 4.22 Hgb 12.2 Hct 36.4 MCV 86.2 MCH 28.9 MCHC 33.5 RDW 12.9 Plt Count 297 MPV 7.4 L Neutrophils % 51.5 Lymphocytes % 38.1 Monocytes % 7.1 Eosinophils % 2.8 Basophils % 0.5 PT with INR 11.80 INR 1.04 Sodium 138 Potassium 3.8 Chloride 104 Carbon Dioxide 27 Anion Gap 7 L BUN 15 D Creatinine 1.0 D Creat Clearance w eGFR 54.81 Random Glucose 109 H Calcium 8.7 Magnesium 2.3 Total Bilirubin 0.4 AST 19 ALT 30 Alkaline Phosphatase 64 Creatine Kinase Troponin I Total Protein 7.8 Albumin 3.9 Urine Color Urine Appearance Urine pH Ur Specific [place] Urine Protein Urine Glucose (UA) Urine Ketones Urine Blood Urine Nitrite Urine Bilirubin Urine Urobilinogen Ur Leukocyte Esterase Urine WBC (Auto) Urine RBC (Auto) Ur Epithelial Cells Urine Mucus 11/04/17 11/04/17 11/04/17 04:41 04:42 09:15 WBC RBC Hgb Hct MCV MCH MCHC RDW Plt Count MPV Neutrophils % Lymphocytes % Monocytes % Eosinophils % Basophils % PT with INR INR Sodium Potassium Chloride Carbon Dioxide Anion Gap BUN Creatinine Creat Clearance w eGFR Random Glucose Calcium Magnesium Total Bilirubin AST ALT Alkaline Phosphatase Creatine Kinase 93 86 Troponin I < 0.02 < 0.02 Total Protein Albumin Urine Color Ltyellow Urine Appearance Slcloudy Urine pH 6.0 Ur Specific [place] 1.014 Urine Protein 1+ H Urine Glucose (UA) Negative Urine Ketones Negative Urine Blood Negative Urine Nitrite Negative Urine Bilirubin Negative Urine Urobilinogen Negative Ur Leukocyte Esterase 1+ H Urine WBC (Auto) 14 Urine RBC (Auto) 3 Ur Epithelial Cells Few Urine Mucus Rare ASSESSMENT/PLAN 72 year-old female with a PMH significant for HTN, HLD, asthma, granulomatous lung disease, GERD, and depression. Placed on observation for chest pain. Chest pain --r/o ACS --troponins neg x 2 --CXR unremarkable --ECG not suggestive of acute ischemic event --continue ASA, lipitor --stress tomorrow --Dr. Lauren following --r/o arrhythmia --telemetry monitoring --r/o GI etiology --will need outpatient followup with Dr. Winkler Hypertension --continue Losartan, chlorthalidone Hyperlipidemia --continue Lipitor Depression --continue paroxetine GERD --protonix PO Asthma/granulomatous lung disease --stable FEN Fluids: PO intake adequate Electrolytes: replete as indicated Nutrition: NPO after midnight for stress DVT prophylaxis: oob, ambulation, expected short stay Dispo: continues to require observation. Full code. Visit type - Emergency Visit Emergency Visit: Yes ED Registration Date: 11/04/17 Care time: The patient presented to the Emergency Department on the above date and was hospitalized for further evaluation of their emergent condition. - New Patient This patient is new to me today: Yes Date on this admission: 11/04/17 - Critical Care Critical Care patient: No
[2017-11-04 16:36] VITALS: BMI 12.8
--- NOTE | 2017-11-04 18:25 | CON.CARD ---
Consult Consult Specialty:: cardio Referred by:: hospitalist Reason for Consultation:: cp - History of Present Illness Chief Complaint: cp History of Present Illness: 72 yo female came to ER with cp. (hx obtained from family at bedside translating) awoke around 3:30 am with severe pain in center chest. non-radiating. + associated burning quality of pain and sour taste in her mouth. + associated feeling of very cold throughout her body and sob. pain resolved after approx 10 min. she vomited at that time. had this pain 2 other times when came to hospital in past (no PA or evidence of unstable angina on those prior admits) has "gastritis" and says complies with daily nexium, per dr rivers. feels very bloated/full like food is stuck when eats something. has h/o atypical cp likely mskel in past. however also poor historian, recently saw me in office with ? exertional quality to cp--scheduled for stress test 11/10. 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: Yes: Migraine, Vertigo Cardio/Vascular: Yes: HTN, Hyperlipdemia Pulmonary: Yes: Asthma, Other (granulmatous lung disease) Gastrointestinal: Yes: GERD Psych: Yes: Depression, Other (Insomnia) - Alcohol/Substance Use Hx Alcohol Use: No History of Substance Use: reports: None - Smoking History Smoking history: Never smoked Have you smoked in the past 12 months: No Aproximately how many cigarettes per day: 0 - Social History ADL: Independent History of Recent Travel: No Home Medications - Allergies Allergies/Adverse Reactions: Allergies Allergy/AdvReac Type Severity Reaction Status Date / Time Penicillins Allergy Unknown Verified 11/04/17 04:38 apple Allergy Uncoded 11/04/17 04:38 - Home Medications Home Medications: Ambulatory Orders Bisacodyl [Laxative] 5 mg PO DAILY PRN 01/28/15 Ibuprofen [Motrin -] 600 mg PO BID 01/28/15 Losartan Potassium 100 mg PO DAILY 01/28/15 Meclizine HCl 25 mg PO TID 01/28/15 Paroxetine HCl 10 mg PO AM 01/28/15 Sennosides [Senna -] 2 tab PO DAILY PRN 01/28/15 Simvastatin [Zocor -] 40 mg PO HS 01/28/15 Aspirin [ASA -] 81 mg PO DAILY 10/22/15 Calcium Carbonate/Mag Hydrox [Mylanta Ultra Chew Tab] 1 each PO PRN PRN Calcium Carbonate/Vitamin D3 [Calcium 600-Vit D3 200 Tablet] 1 each PO BID 10/22 Cetirizine HCl [Wal-Zyr] 10 mg PO DAILY 10/22/15 Chlorthalidone 25 mg PO DAILY 10/22/15 Multivitamins [Multivit ([facility] Formulary)] 1 tab PO DAILY 10/22/15 Omeprazole 20 mg PO DAILY 10/22/15 Ranitidine HCl [Zantac] 150 mg PO BID 10/22/15 Acetaminophen [Tylenol .Regular Strength -] 650 mg PO Q6H #100 tablet 02/12/16 Family Disease History - Family Disease History Family History: Denies (no known cmp) Review of Systems - Review of Systems Constitutional: denies: Chills, Fever Eyes: denies: Eye Pain HENT: denies: Nasal Congestion Neck: denies: Stiffness Cardiovascular: denies: Palpitations Respiratory: denies: Orthopnea, PND Gastrointestinal: denies: Diarrhea, Rectal Bleeding Genitourinary: denies: Burning, Hematuria Musculoskeletal: denies: Muscle Pain Integumentary: denies: Rash Neurological: denies: Numbness, Seizure, Syncope Endocrine: denies: Excessive Sweating Hematology/Lymphatic: denies: Excessive Bleeding Vital Signs: Vital Signs Temperature 98.1 F 11/04/17 08:32 Pulse Rate 87 11/04/17 16:32 Respiratory Rate 18 11/04/17 16:32 Blood Pressure 159/74 11/04/17 16:32 O2 Sat by Pulse Oximetry (%) 98 11/04/17 16:32 Constitutional: Yes: Well Nourished, No Distress Eyes: No: Sclera Icterus HENT: No: Nasal Congestion Neck: No: Decreased ROM Respiratory: Yes: CTA Bilaterally. No: Accessory Muscle Use, Rales, Wheezes Gastrointestinal: Yes: Normal Bowel Sounds. No: Distention, Hepatomegaly, Palpable Mass, Tenderness Cardiovascular: Yes: Regular Rate and Rhythm JVD: No Carotid Bruit: No PMI: Non-Displaced Heart Sounds: Yes: S1, S2. No: Gallop Murmur: No: Systolic Murmur, Diastolic Murmur Musculoskeletal: Yes: Other (No kyphosis) Extremities: No: Cold, Cyanosis Edema: No Peripheral Pulses: 2+ Left Carotid, 2+ Right Carotid, 2+ Left Doralis Pedis, 2+ Right Dorsalis Pedis Integumentary: No: Jaundice Neurological: Yes: Alert, Oriented (x3) Psychiatric: No: Agitated - Other Data Labs, Other Data: CBC, BMP 11/04/17 04:41 11/04/17 04:41 INR, PTT INR 1.04 (0.82-1.09) 11/04/17 04:41 Troponin, BNP 11/04/17 11/04/17 04:41 09:15 Troponin I < 0.02 < 0.02 Troponin, BNP 11/04/17 11/04/17 04:41 09:15 Troponin I < 0.02 < 0.02 Laboratory Tests 11/04/17 11/04/17 11/04/17 04:41 04:41 04:41 WBC 8.9 Hgb 12.2 Plt Count 297 Sodium 138 Potassium 3.8 Carbon Dioxide 27 BUN 15 D Creatinine 1.0 D AST 19 ALT 30 Troponin I < 0.02 11/04/17 09:15 WBC Hgb Plt Count Sodium Potassium Carbon Dioxide BUN Creatinine AST ALT Troponin I < 0.02 Assessment/Plan MPI 01/16 (persantine): no STs, normal perfusion/no ischemia. nl EF EKG 11/04: NSR, WNL CXR: clear lungs/pleura chest pain: -sx's most likely GERD vs ? gastroparesis related by history (see HPI) including assctd sour taste in mouth, then vomited. -normal ecg, trop neg x 2--ACS unlikely -clinical picture not c/w aortic dissection -however in light of recent sx's of ? exertional cp as outpatient with planned stress test, will proceed with stress test. d/w'd pt and family at bedside--she is not confident she will be able to come for 11/10 stress test appt if there are transportation issues or bad weather, hence i rec she stay and have it done tomorrow. -if stress test negative, no futher CV w/u needed--pt should f/u with dr rivers : ? gastric emptying study, ? empiric change in meds HTN: -bp mildly elevated in ER -resume home meds, observe trend HPL: -cont home regimen h/o CVA?: -details uncertain -MRI here 2016 no acute or old ischemic infarct
[2017-11-04] MEDS ORDERED: SENNOSIDES 8.6MG TABLET (FP) PO PRN (23:05)
[2017-11-05] MEDS ORDERED: MAG HYDROX/AL HYDROX/SIMETH 30 ML UNIT-DOSE CUP PO ONE ×2 (01:00→21:24)
[2017-11-05] MEDS: PARoxetine HCL 20 MG TABLET (FP) PO SCH (06:33)
--- NOTE | 2017-11-05 09:41 | EKG ---
Test Reason : Blood Pressure : / mmHG Vent. Rate : 099 BPM Atrial Rate : 099 BPM P-R Int : 178 ms QRS Dur : 100 ms QT Int : 348 ms P-R-T Axes : 061 011 055 degrees QTc Int : 446 ms NORMAL SINUS RHYTHM NORMAL ECG Confirmed by MD Carreon Edward ([id number]) on 11/05/2017 9:41:26 AM Referred By: Confirmed By:Andrew Carreon MD
[2017-11-05] MEDS ORDERED: PATIENT'S OWN MEDICATION (NON-FORMULARY) (Losartan Potassium [Losartan Potassium] 100 MG) PO SCH (10:00)
[2017-11-05] MEDS ORDERED: LOSARTAN POTASSIUM 100 MG TABLET PO SCH (10:00)
[2017-11-05] MEDS ORDERED: REGADENOSON 0.4 MG/5 ML PRE-FILLED SYRINGE IVPUSH ONE ×2 (10:39→11:00)
[2017-11-05] MEDS: CHLORTHALIDONE 25 MG TABLET PO SCH ×2 (14:35→15:32)
[2017-11-05] MEDS: ASPIRIN 81 MG CHEWABLE TABLETS PO SCH (14:35)
[2017-11-05] MEDS: PANTOPRAZOLE 40 MG TABLET (FP) PO SCH (14:36)
[2017-11-05] MEDS: LOSARTAN POTASSIUM 50 MG TABLET (FP) PO SCH (15:31)
--- NOTE | 2017-11-05 16:07 | PN ---
Progress Note (short form) - Note Progress Note: Chief Complaint: cp History of Present Illness: Had stress test today. Endorsed heaviness/tiredness in chest. Symptoms currently improved, almost completely resolved. no sob, palps, dizziness. Current Medications Aspirin (Asa -) 81 mg PO DAILY [facility] Last Admin: 11/05/17 14:35 Dose: 81 mg Atorvastatin Calcium (Lipitor -) 40 mg PO HS [facility] Chlorthalidone (Hygroton -) 25 mg PO DAILY [facility] Last Admin: 11/05/17 15:32 Dose: Not Given Losartan Potassium (Cozaar -) 100 mg PO DAILY [facility] Last Admin: 11/05/17 15:31 Dose: Not Given Pantoprazole Sodium (Protonix -) 40 mg PO DAILY [facility] Last Admin: 11/05/17 14:36 Dose: 40 mg Paroxetine HCl (Paxil -) 10 mg PO AM [facility] Last Admin: 11/05/17 06:33 Dose: 10 mg Senna (Senna -) 2 tab PO DAILY PRN PRN Reason: CONSTIPATION Vital Signs - 24 hr 11/04/17 11/04/17 11/05/17 16:32 23:30 00:33 Temperature 98.7 F 97.6 F Pulse Rate 87 75 Pulse Rate [ 79 Apical] Respiratory 18 18 18 Rate Blood Pressure 159/74 160/80 Blood Pressure 152/73 [Left Arm] O2 Sat by Pulse 98 98 Oximetry (%) 11/05/17 11/05/17 11/05/17 01:21 02:00 06:00 Temperature 99.2 F 99.3 F Pulse Rate 76 79 Pulse Rate [ Apical] Respiratory 18 20 Rate Blood Pressure 127/74 123/61 Blood Pressure [Left Arm] O2 Sat by Pulse 98 Oximetry (%) 11/05/17 11/05/17 10:00 14:00 Temperature 99.6 F 97.5 F L Pulse Rate 77 96 H Pulse Rate [ Apical] Respiratory 20 18 Rate Blood Pressure 142/62 151/69 Blood Pressure [Left Arm] O2 Sat by Pulse Oximetry (%) Intake & Output 11/03/17 11/04/17 11/05/17 11/06/17 07:59 07:59 07:59 07:59 Intake Total 350 Balance 350 Weight 160 lb 164 lb 8 oz Constitutional: Yes: Well Nourished, No Distress Eyes: No: Sclera Icterus HENT: No: Nasal Congestion Neck: No: Decreased ROM Respiratory: Yes: CTA Bilaterally. No: Accessory Muscle Use, Rales, Wheezes Gastrointestinal: Yes: Normal Bowel Sounds. No: Distention, Hepatomegaly, Palpable Mass, Tenderness Cardiovascular: Yes: Regular Rate and Rhythm JVD: No Carotid Bruit: No PMI: Non-Displaced Heart Sounds: Yes: S1, S2. No: Gallop Murmur: No: Systolic Murmur, Diastolic Murmur Musculoskeletal: Yes: Other (No kyphosis) Extremities: No: Cold, Cyanosis Edema: No Peripheral Pulses: 2+ Left Carotid, 2+ Right Carotid, 2+ Left Doralis Pedis, 2+ Right Dorsalis Pedis Integumentary: No: Jaundice Neurological: Yes: Alert, Oriented (x3) Psychiatric: No: Agitated - Other Data Labs, Other Data: CBC, BMP 11/04/17 04:41 11/04/17 04:41 Assessment/Plan EKG 11/04: NSR, WNL tele: sr MPI 11/2017: prelim report. small area of mildly intense myocardial ischemia of inferior wall. Small area of severely intense myocardial ischemia, apex. EF 64% MPI 01/16 (persantine): no STs, normal perfusion/no ischemia. nl EF CXR: clear lungs/pleura 72 yo with h/o htn, hl, dm?, h/o cva? details obscure, hiatal hernia/gastritis, asthma/chronic granulomatous and interstitital findings on CT chest, fatty liver , spinal stenosis, RLS, anxiety/depression vertigo who p/w cp. chest pain: -sx's most likely GERD vs ? gastroparesis related by history (see HPI) including assctd sour taste in mouth, then vomited. -normal ecg, trop neg x 2--ACS unlikely -clinical picture not c/w aortic dissection -however in light of recent sx's of ? exertional cp as outpatient with planned stress test, will proceed with stress test. d/w'd pt and family at bedside--she is not confident she will be able to come for 11/10 stress test appt if there are transportation issues or bad weather, hence i rec she stay and have it done tomorrow. --pt should f/u with dr rivers: ? gastric emptying study, - 1/3: stress test positive for ischemia, low risk findings. Discussed options of medical management vs. invasive evaluation. Patient would prefer to pursue medical management first. Will add anti-anginal tonight. Norvasc may have worsened le edema in the past --> Will start toprol 25 mg/day. (short acting dose tonight). - con't asa,s tatin HTN: -bp mildly elevated in ER -meds as above. HPL: -cont home regimen h/o CVA?: -details uncertain -MRI here 2016 no acute or old ischemic infarct, con't asa, statin
[2017-11-05] MEDS ORDERED: METOPROLOL TARTRATE 25 MG TABLET (FP) PO ONE (22:00)
[2017-11-05] MEDS ORDERED: ATORVASTATIN CA 40 MG TABLET (FP) PO SCH (22:00)
[2017-11-06] MEDS: PARoxetine HCL 20 MG TABLET (FP) PO SCH ×2 (05:33→06:27)
[2017-11-06 05:38] VITALS: BP 140/72; PULSE 66; TEMP 97.7
--- NOTE | 2017-11-06 08:56 | PN ---
Physical Exam: SUBJECTIVE: Patient seen and examined OBJECTIVE: Vital Signs Period Temp Pulse Resp BP Sys/Anne Pulse Ox Last 24 Hr 97.0 F-99.6 F 66-96 18-20 121-153/61-72 99 GENERAL: The patient is awake, alert, and fully oriented, in no acute distress. HEAD: Normal with no signs of trauma. EYES: PERRL, extraocular movements intact, sclera anicteric, conjunctiva clear. No ptosis. ENT: Ears normal, nares patent, oropharynx clear without exudates, moist mucous membranes. NECK: Trachea midline, full range of motion, supple. LUNGS: Breath sounds equal, clear to auscultation bilaterally, no wheezes, no crackles, no accessory muscle use. HEART: Regular rate and rhythm, S1, S2 without murmur, rub or gallop. ABDOMEN: Soft, nontender, nondistended, normoactive bowel sounds, no guarding, no rebound, no hepatosplenomegaly, no masses. EXTREMITIES: 2+ pulses, warm, well-perfused, no edema. NEUROLOGICAL: Cranial nerves II through XII grossly intact. Normal speech, gait not observed. PSYCH: Normal mood, normal affect. SKIN: Warm, dry, normal turgor, no rashes or lesions noted Active Medications Generic Name Dose Route Start Last Admin Trade Name Freq PRN Reason Stop Dose Admin Aspirin 81 mg 11/05/17 10:00 11/05/17 14:35 Asa - PO 81 mg DAILY CRISTIAN Administration Atorvastatin Calcium 40 mg 11/05/17 22:00 11/05/17 22:50 Lipitor - PO 40 mg HS CRISTIAN Administration Chlorthalidone 25 mg 11/05/17 10:00 11/05/17 15:32 Hygroton - PO Not Given DAILY CRISTIAN Losartan Potassium 100 mg 11/05/17 14:45 11/05/17 15:31 Cozaar - PO Not Given DAILY CRISTIAN Metoprolol Succinate 25 mg 11/06/17 10:00 Toprol Xl - PO DAILY CRISTIAN Pantoprazole Sodium 40 mg 11/05/17 10:00 11/05/17 14:36 Protonix - PO 40 mg DAILY CRISTIAN Administration Paroxetine HCl 10 mg 11/05/17 07:00 11/06/17 06:27 Paxil - PO Not Given AM CRISTIAN Senna 2 tab 11/04/17 23:05 Senna - PO DAILY PRN CONSTIPATION ASSESSMENT/PLAN: 72 year-old female with a PMH significant for HTN, HLD, asthma, granulomatous lung disease, GERD, and depression. Placed on observation for chest pain. Chest pain --r/o ACS --troponins neg x 3 --CXR unremarkable --ECG not suggestive of acute ischemic event --continue ASA, lipitor --stress today, pending results --Dr. Lauren following --r/o arrhythmia --telemetry monitoring --r/o GI etiology --will need outpatient followup with Dr. Winkler Hypertension --continue Losartan, chlorthalidone Hyperlipidemia --continue Lipitor Depression --continue paroxetine GERD --protonix PO Asthma/granulomatous lung disease --stable FEN Fluids: PO intake adequate Electrolytes: replete as indicated Nutrition: NPO after midnight for stress DVT prophylaxis: oob, ambulation, expected short stay Dispo: continues to require observation. Full code. Visit type - Emergency Visit Emergency Visit: Yes ED Registration Date: 11/04/17 Care time: The patient presented to the Emergency Department on the above date and was hospitalized for further evaluation of their emergent condition. - New Patient This patient is new to me today: No - Critical Care Critical Care patient: No
[2017-11-06] MEDS ORDERED: METOPROLOL SUCCINATE 25 MG TAB.SR.24H (FP) PO SCH (10:00)
[2017-11-06] MEDS: LOSARTAN POTASSIUM 50 MG TABLET (FP) PO SCH (11:09)
[2017-11-06] MEDS: ASPIRIN 81 MG CHEWABLE TABLETS PO SCH (11:10)
[2017-11-06] MEDS: CHLORTHALIDONE 25 MG TABLET PO SCH (11:10)
[2017-11-06] MEDS: PANTOPRAZOLE 40 MG TABLET (FP) PO SCH (11:10)
--- NOTE | 2017-11-06 11:24 | DS ---
Physical Exam: SUBJECTIVE: Patient seen and examined OBJECTIVE: Vital Signs Period Temp Pulse Resp BP Sys/Anne Pulse Ox Last 24 Hr 97.0 F-97.7 F 66-96 18-20 121-153/61-72 99 PHYSICAL EXAM GENERAL: The patient is awake, alert, and fully oriented, in no acute distress. HEAD: Normal with no signs of trauma. EYES: PERRL, extraocular movements intact, sclera anicteric, conjunctiva clear. ENT: Ears normal, nares patent, oropharynx clear without exudates, moist mucous membranes. NECK: Trachea midline, full range of motion, supple. LUNGS: Breath sounds equal, clear to auscultation bilaterally, no wheezes, no crackles, no accessory muscle use. HEART: Regular rate and rhythm, S1, S2 without murmur, rub or gallop. ABDOMEN: Soft, nontender, nondistended, normoactive bowel sounds, no guarding, no rebound, no hepatosplenomegaly, no masses. EXTREMITIES: 2+ pulses, warm, well-perfused, no edema. NEUROLOGICAL: Cranial nerves II through XII grossly intact. Normal speech, gait not observed. PSYCH: Normal mood, normal affect. SKIN: Warm, dry, normal turgor, no rashes or lesions noted. LABS HOSPITAL COURSE: Date of Admission:11/04/17 Date of Discharge: 11/06/17 Discharge Summary Reason For Visit: CHEST PAIN Current Active Problems Chest pain (Acute) Condition: Improved - Instructions Referrals: Osei Lauren MD [Staff Physician] - Beny Winkler MD [Staff Physician] - 1 Week (for gastric emptying study) Pauline Ennis MD [Primary Care Provider] - Disposition: HOME - Home Medications Comprehensive Discharge Medication List: Ambulatory Orders Bisacodyl [Laxative] 5 mg PO DAILY PRN 01/28/15 Ibuprofen [Motrin -] 600 mg PO BID 01/28/15 Losartan Potassium 100 mg PO DAILY 01/28/15 Meclizine HCl 25 mg PO TID 01/28/15 Paroxetine HCl 10 mg PO AM 01/28/15 Sennosides [Senna -] 2 tab PO DAILY PRN 01/28/15 Simvastatin [Zocor -] 40 mg PO HS 01/28/15 Aspirin [ASA -] 81 mg PO DAILY 10/22/15 Calcium Carbonate/Mag Hydrox [Mylanta Ultra Chew Tab] 1 each PO PRN PRN Calcium Carbonate/Vitamin D3 [Calcium 600-Vit D3 200 Tablet] 1 each PO BID 10/22 Cetirizine HCl [Wal-Zyr] 10 mg PO DAILY 10/22/15 Chlorthalidone 25 mg PO DAILY 10/22/15 Multivitamins [Multivit ([facility] Formulary)] 1 tab PO DAILY 10/22/15 Omeprazole 20 mg PO DAILY 10/22/15 Ranitidine HCl [Zantac] 150 mg PO BID 10/22/15 Acetaminophen [Tylenol .Regular Strength -] 650 mg PO Q6H #100 tablet 02/12/16
--- NOTE | 2017-11-06 12:15 | PN ---
Progress Note (short form) - Note Progress Note: s: no cp, sob, palps, dizziness. Current Medications Generic Name Dose Route Start Last Admin Trade Name Freq PRN Reason Stop Dose Admin Aspirin 81 mg 11/05/17 10:00 11/06/17 11:10 Asa - PO 81 mg DAILY CRISTIAN Administration Atorvastatin Calcium 40 mg 11/05/17 22:00 11/05/17 22:50 Lipitor - PO 40 mg HS CRISTIAN Administration Chlorthalidone 25 mg 11/05/17 10:00 11/06/17 11:10 Hygroton - PO Not Given DAILY CRISTIAN Losartan Potassium 100 mg 11/05/17 14:45 11/06/17 11:09 Cozaar - PO 100 mg DAILY C[facility]STIAN Administration Metoprolol Succinate 25 mg 11/06/17 10:00 11/06/17 11:10 Toprol Xl - PO 25 mg DAILY CRISTIAN Administration Pantoprazole Sodium 40 mg 11/05/17 10:00 11/06/17 11:10 Protonix - PO 40 mg DAILY CRISTIAN Administration Paroxetine HCl 10 mg 11/05/17 07:00 11/06/17 06:27 Paxil - PO Not Given AM CRISTIAN Senna 2 tab 11/04/17 23:05 Senna - PO DAILY PRN CONSTIPATION Vital Signs Period Temp Pulse Resp BP Sys/Anne Pulse Ox Last 24 Hr 97.0 F-97.7 F 66-96 18-20 121-153/61-72 99 Constitutional: Yes: Well Nourished, No Distress Eyes: No: Sclera Icterus Respiratory: Yes: CTA Bilaterally. No: Accessory Muscle Use, Rales, Wheezes Gastrointestinal: Yes: Normal Bowel Sounds. No: Distention, Hepatomegaly, Palpable Mass, Tenderness Cardiovascular: Yes: Regular Rate and Rhythm JVD: No Carotid Bruit: No Heart Sounds: Yes: S1, S2. No: Gallop Murmur: No: Systolic Murmur, Diastolic Murmur Musculoskeletal: Yes: Other (No kyphosis) Extremities: No: Cold, Cyanosis Edema: No Peripheral Pulses: 2+ Left Carotid, 2+ Right Carotid, 2+ Left Doralis Pedis, 2+ Right Dorsalis Pedis Integumentary: No: Jaundice Neurological: Yes: Alert, Oriented (x3) Psychiatric: No: Agitated - Other Data Labs, Other Data: CBC, BMP 11/04/17 04:41 11/04/17 04:41 EKG 11/04: NSR, WNL tele: sr MPI 11/2017: prelim report. small area of mildly intense myocardial ischemia of inferior wall. Small area of severely intense myocardial ischemia, apex. EF 64% MPI 01/16 (persantine): no STs, normal perfusion/no ischemia. nl EF CXR: clear lungs/pleura a/p: 72 yo with h/o htn, hl, dm?, h/o cva? details obscure, hiatal hernia/gastritis, asthma/chronic granulomatous and interstitital findings on CT chest, fatty liver , spinal stenosis, RLS, anxiety/depression vertigo who p/w cp. chest pain: -sx's most likely GERD vs ? gastroparesis related by history (see HPI) including assctd sour taste in mouth, then vomited. -normal ecg, trop neg x 2--ACS unlikely -clinical picture not c/w aortic dissection -however in light of recent sx's of ? exertional cp as outpatient with planned stress test, will proceed with inpt stress test -pt should f/u with dr rivers: ? gastric emptying study, - 11/05: stress test positive for ischemia, low risk findings. Discussed options of medical management vs. invasive evaluation. Patient would prefer to pursue medical management first. started toprol 25 mg/day. - con't asa, statin HTN: -meds as above. HPL: -cont home regimen h/o CVA?: -details uncertain -MRI here 2015 no acute or old ischemic infarct, con't asa, statin cardiac elias stable for dc
== END 2017-11-06 13:26 | disposition home or self-care (01) ==
LOC: JER 04:26 → JERBED 12:28 → J4W 11-05 00:39
PROVIDERS: ADMIT Hospitalist; ATTEND Nurse Practitioner Family
PROC: 3E033GC Introduction of Other Therapeutic Substance into Peripheral Vein, Percutaneous Approach (ICD-10-PCS; principal; 2017-11-04)
PROC: 3E0337Z Introduction of Electrolytic and Water Balance Substance into Peripheral Vein, Percutaneous Approach (ICD-10-PCS; 2017-11-04)
DX: R07.9 Chest pain, unspecified (principal); I10 Essential (primary) hypertension; I25.10 Atherosclerotic heart disease of native coronary artery without angina pectoris; E78.5 Hyperlipidemia, unspecified; J45.909 Unspecified asthma, uncomplicated; J84.10 Pulmonary fibrosis, unspecified; F32.9 Major depressive disorder, single episode, unspecified; K21.9 Gastro-esophageal reflux disease without esophagitis; Z86.73 Personal history of transient ischemic attack (TIA), and cerebral infarction without residual deficits; Z88.0 Allergy status to penicillin; Z79.82 Long term (current) use of aspirin
CPT/HCPCS: 36415; 71045-TC; 78452-TC; 80053; 81003; 81015; 82550; 83735; 84484; 85025; 85610; 93005; 93010; 93017; 96361; 96374; 96375; 99285-25; A9502; G0378

== ENCOUNTER 2018-03-26 03:18 | Emergency (ER) | payer OTHER ==
[2018-03-26 03:30] VITALS: BP 138/87; PULSE 67; TEMP 97.5; BMI 30.2
--- NOTE | 2018-03-26 03:39 | PDOC ---
History of Present Illness - General History Source: Patient Exam Limitations: No Limitations - History of Present Illness Initial Comments: 03/26/18 03:43 The patient is a 72 year old female, with a significant past medical history of coronary artery disease, hypertension, hyperlipidemia, asthma, depression, who presents to the emergency department with, several weeks of intermittent chest pain. The patient describes her chest pain as intermittent in nature, ranking a 2/10, and localized to when she touched her midsternal region of her chest. She reports associated intermittent shortness of breath, decreased sleep, and nausea without emesis. The patient denies feeling any of her symptoms currently. She has not told her PCP about her symptoms. She denies recent fevers, chills, headache or dizziness. She denies recent nausea, vomit, diarrhea or constipation. She denies recent dysuria, frequency, urgency or hematuria. Allergies: Black pepper, Penicillins, Apple. Past surgical history: None reporthed. Social history: Nonsmoker. Denies EtOH use and recreational drug use. <Maris Damon - Last Filed: 03/26/18 03:58> - General History Source: Patient <Almas Vasquez - Last Filed: 03/26/18 19:23> - General Chief Complaint: Chest Pain Stated Complaint: CHEST PAIN Time Seen by Provider: 03/26/18 03:39 Past History <Maris Damon - Last Filed: 03/26/18 03:58> - Past Medical History Asthma: Yes CVA: Yes (CVA) COPD: No Diabetes: Yes GI Disorders: Yes (hiatal hernia) HTN: Yes Hypercholesterolemia: Yes Psychiatric Problems: Yes (ANXIETY/DEPRESSION) - Immunization History Immunization Up to Date: Yes - Suicide/Smoking/Psychosocial Hx Smoking Status: No Smoking History: Never smoked Have you smoked in the past 12 months: No Number of Cigarettes Smoked Daily: 0 Information on smoking cessation initiated: No Hx Alcohol Use: No Drug/Substance Use Hx: No Substance Use Type: None Hx Substance Use Treatment: No <PedroAlmas - Last Filed: 03/26/18 19:23> - Past Medical History Allergies/Adverse Reactions: Allergies Allergy/AdvReac Type Severity Reaction Status Date / Time black pepper Allergy Severe Itching Verified 03/26/18 03:28 Penicillins Allergy Unknown Verified 03/26/18 03:28 apple Allergy Uncoded 03/26/18 03:28 Home Medications: Ambulatory Orders Aspirin [ASA -] 81 mg PO DAILY 10/22/15 Atorvastatin Ca [Lipitor] 40 mg PO HS #30 tablet 11/06/17 Metoprolol Succinate [Toprol XL -] 25 mg PO DAILY #30 tab.sr.24h 11/06/17 Amlodipine Besylate 10 mg PO DAILY 03/26/18 Chlorthalidone 25 mg PO DAILY 03/26/18 Gabapentin 600 mg PO HS 03/26/18 Meloxicam 15 mg PO DAILY 03/26/18 Review of Systems - Review of Systems Able to Perform ROS?: Yes Comments:: 03/26/18 03:47 CONSTITUTIONAL: Absent: fever, no chills, no fatigue EYES: Absent: visual changes ENT: Absent: ear pain, no sore throat CARDIOVASCULAR: Present: Chest pain. SOB. Absent: chest pain, no palpitations RESPIRATORY: Absent: cough GI: Absent: abdominal pain, no nausea, no vomiting, no constipation, no diarrhea GENITOURINARY: Absent: dysuria, no frequency, no hematuria MUSKULOSKELETAL: Absent: back pain, no arthralgia, no myalgia SKIN: Absent: rash NEURO: Absent: headache All Other Systems: Reviewed and Negative <Maris Damon - Last Filed: 03/26/18 03:58> *Physical Exam - Vital Signs Last Vital Signs Temp Pulse Resp BP Pulse Ox 97.5 F L 67 20 138/87 97 03/26/18 03:28 03/26/18 03:28 03/26/18 03:28 03/26/18 03:28 03/26/18 03:28 - Physical Exam Comments: 03/26/18 03:48 GENERAL: Well-appearing, well-nourished. No apparent distress. HEENT: Normocephalic, atraumatic. PERRL, EOM intact. CARDIOVASCULAR: Normal S1, S2. Regular rate and rhythm. PULMONARY: Clear to auscultation bilaterally. ABDOMEN: Soft, non-distended, non-tender. EXTREMITIES: Normal ROM in all four extremities. No gross deformities. SKIN: Warm, dry. No rash NEUROLOGICAL: No focal neurological deficits. <Maris Damon - Last Filed: 03/26/18 03:58> - Vital Signs Last Vital Signs Temp Pulse Resp BP Pulse Ox 97.5 F L 67 20 138/87 97 03/26/18 03:28 03/26/18 03:28 03/26/18 03:28 03/26/18 03:28 03/26/18 03:28 <Almas Vasquez - Last Filed: 03/26/18 19:23> Heart Score/ECG Review - ECG Intrepretation Comment:: 03/26/18 EKG performed at: 26 Mar 2018 at 3:28:04 Vent Rate 64 bpm NV interval 150 ms QRS duration 88 ms QT/QTc 400/412 ms P-R-T axes 53 21 37 <Maris Damon - Last Filed: 03/26/18 03:58> ED Treatment Course - LABORATORY CBC & Chemistry Diagram: 03/26/18 04:06 03/26/18 04:06 <Almas Vasquez - Last Filed: 03/26/18 19:23> Medical Decision Making - Medical Decision Making 03/26/18 19:23 scribe noteDrSwapna Vasquez: The scribe's documentation has been prepared under my direction and personally reviewed by me in its entirery. I confirm that the note above accurately reflects all work, treatment, procedures, and medical decision making performed by me. <Almas Vasquez - Last Filed: 03/26/18 19:23> *DC/Admit/Observation/Transfer - Attestations Scribe Attestion: 03/26/18 03:49 Documentation prepared by Maris Damon, acting as adjunct faculty for medical terminology for Almas Vasquez DO. <Maris Damon - Last Filed: 03/26/18 03:58> - Discharge Dispostion Decision to Admit order: No <Almas Vasquez - Last Filed: 03/26/18 19:23> Diagnosis at time of Disposition: Chest pain - Discharge Dispostion Disposition: HOME Condition at time of disposition: Stable - Referrals Referrals: Pauline Ennis MD [Primary Care Provider] - Everette Lopez MD [Staff Physician] - - Patient Instructions Printed Discharge Instructions: DI for Chest Pain Print Language: ROMANIAN
[2018-03-26 04:14] LABS: BASO % 0.6 % (0-2.0); EOS % 4.5 % (0-4.5); HEMATOCRIT 33.6 % (32.4-45.2); HEMOGLOBIN 11.4 GM/dL (10.7-15.3); LYMPH % 39.3 % (8-40); MCH 28.9 pg (25.7-33.7); MEAN CELL VOLUME 84.9 fl (80-96); MEAN PLT VOLUME 7.9 fl (7.5-11.1); MONO % 6.7 % (3.8-10.2); NEUT % 48.9 % (42.8-82.8); PLATELET COUNT 308 K/MM3 (134-434); RBC 3.96 M/mm3 (3.60-5.2); RDW 12.9 % (11.6-15.6); WHITE BLOOD COUNT 7.6 K/mm3 (4.0-10.0)
[2018-03-26 04:24] LABS: INR 1.08 (0.82-1.09); PROTHROMBIN TIME (PATIENT) 12.2 SEC (9.7-13.0)
[2018-03-26 04:33] LABS: ALBUMIN 3.8 g/dl (3.4-5.0); ANION GAP 8 (8-16); BILIRUBIN,TOTAL 0.4 mg/dL (0.2-1.0); BLOOD UREA NITROGEN 16 mg/dL (7-18); CALCIUM 8.5 mg/dL (8.5-10.1); CHLORIDE 102 mmol/L (98-107); CO2 30 mmol/L (21-32); CREATININE 0.9 mg/dL (0.55-1.02); GLUCOSE,RANDOM 126 mg/dL (74-106); POTASSIUM 3.3 mmol/L (3.5-5.1); SGOT/AST 19 U/L (15-37); SGPT/ALT 20 U/L (12-78); SODIUM 140 mmol/L (136-145); TOT PROT 7.5 g/dl (6.4-8.2)
[2018-03-26 04:36] LABS: ALK PHOS 65 U/L (45-117)
--- NOTE | 2018-03-27 11:21 | EKG ---
Test Reason : Blood Pressure : / mmHG Vent. Rate : 064 BPM Atrial Rate : 064 BPM P-R Int : 150 ms QRS Dur : 088 ms QT Int : 400 ms P-R-T Axes : 053 021 037 degrees QTc Int : 412 ms NORMAL SINUS RHYTHM NORMAL ECG WHEN COMPARED WITH ECG OF 04-NOV-2017 04:35, VENT. RATE HAS DECREASED BY 35 BPM Confirmed by GM COBB MD ([id number]) on 03/27/2018 11:20:38 AM Referred By: Confirmed By:GM COBB MD
== END 2018-03-26 05:00 | disposition home or self-care (01) ==
LOC: JER 03:18
DX: R07.89 Other chest pain (principal); I25.10 Atherosclerotic heart disease of native coronary artery without angina pectoris; I10 Essential (primary) hypertension; E78.00 Pure hypercholesterolemia, unspecified; J45.909 Unspecified asthma, uncomplicated; F41.9 Anxiety disorder, unspecified
CPT/HCPCS: 36415; 80053; 82550; 84484; 85025; 85610; 93005; 93010; 99282-25

== ENCOUNTER 2018-10-10 11:25 | Emergency (ER) | payer OTHER ==
[2018-10-10 11:54] VITALS: TEMP 98.3; BMI 27.4
--- NOTE | 2018-10-10 12:33 | PDOC ---
History of Present Illness - General Chief Complaint: Chest Pain Stated Complaint: CHEST PAIN Time Seen by Provider: 10/10/18 12:06 - History of Present Illness Initial Comments: 10/10/18 13:03 Patient is a 73 year old female with past medical history of CAD, HTN, HLD, DM, asthma, depression/anxiety, presented with intermittent midsternal chest pressure for a few days. Patient reported chest pressure was accompanied by numbness radiating down the left arm and left leg. Patient was seen last 2017 for chest pain, work-up was negative for ACS. She also noted intermittent left temporal headache, eye pain, and left ear deafness. On further review of patient's history, patient had been seen by Dr. Winslow for chronic left-sided face,arm and leg numbness, to consider probable stroke, worsening stroke vs anxiety. Brain MRI was done (04/2017) which did not reveal any acute intracranial pathology. Denies changes in vision, dysphagia, dysarthria, dizziness, vomiting, ear pain, fever, chills, SOB, palpitations, abdominal pain , diarrhea, urinary symptoms. Past History - Past Medical History Allergies/Adverse Reactions: Allergies Allergy/AdvReac Type Severity Reaction Status Date / Time black pepper Allergy Severe Itching Verified 10/10/18 11:50 Penicillins Allergy Unknown Verified 10/10/18 11:50 apple Allergy Uncoded 10/10/18 11:50 Home Medications: Ambulatory Orders Aspirin [ASA -] 81 mg PO DAILY 10/22/15 Atorvastatin Ca [Lipitor] 40 mg PO HS #30 tablet 11/06/17 Metoprolol Succinate [Toprol XL -] 25 mg PO DAILY #30 tab.sr.24h 11/06/17 Amlodipine Besylate 10 mg PO DAILY 03/26/18 Chlorthalidone 25 mg PO DAILY 03/26/18 Gabapentin 600 mg PO HS 03/26/18 Meloxicam 15 mg PO DAILY 03/26/18 Asthma: Yes CVA: Yes (CVA) COPD: No Diabetes: Yes GI Disorders: Yes (hiatal hernia) HTN: Yes Hypercholesterolemia: Yes Psychiatric Problems: Yes (ANXIETY/DEPRESSION) - Immunization History Immunization Up to Date: Yes - Suicide/Smoking/Psychosocial Hx Smoking Status: No Smoking History: Never smoked Have you smoked in the past 12 months: No Number of Cigarettes Smoked Daily: 0 Hx Alcohol Use: No Drug/Substance Use Hx: No Substance Use Type: None Hx Substance Use Treatment: No Review of Systems - Review of Systems Constitutional: No: Chills, Fever, Malaise, Weakness HEENTM: Yes: Eye Pain. No: Recent change in vision, Ear Pain, Ear Discharge, Nose Congestion, Difficulty Swallowing Respiratory: No: Cough, Shortness of Breath Cardiac (ROS): Yes: Chest Pain. No: Lightheadedness, Palpitations ABD/GI: Yes: Constipated, Nausea. No: Abdominal Distended, Diarrhea, Vomiting, Abdominal cramping : No: Burning, Dysuria, Incontinence Musculoskeletal: No: Back Pain Neurological: Yes: Headache, Numbness. No: Tingling, Tremors, Weakness *Physical Exam - Vital Signs Last Vital Signs Temp Pulse Resp BP Pulse Ox 98.3 F 78 16 156/64 99 10/10/18 11:52 10/10/18 11:52 10/10/18 11:52 10/10/18 11:52 10/10/18 11:52 - Physical Exam Comments: 10/10/18 13:03 General: awake, alert, oriented, not in acute distress Head:no signs of head trauma HEENT: PERRLA, EOMI, sclerae anicteric, no nasal discharge, non-erythematous EAC , intact TM, non-erythematous oropharynx, moist mucous membranes Neck:soft, supple, trachea midline without thyromegaly Lungs:clear to auscultation bilaterally, Heart:regular rate and rhythm, normal S1/S2, no m,r,g Abdomen:soft, nontender, nondistended, NABS Ext:+2 pulses, no peripheral edema, no cyanosis or clubbing Neuro: AAOx4, CN II-XII intact, motor strength 5/5, sensation intact, able to do FTNT, normal speech, normal gait, negative Romberg's Moderate Sedation - Procedure Monitoring Vital Signs: Procedure Monitoring Vital Signs Temperature 98.3 F 10/10/18 11:52 Pulse Rate 78 10/10/18 11:52 Respiratory Rate 16 10/10/18 11:52 Blood Pressure 156/64 10/10/18 11:52 O2 Sat by Pulse Oximetry (%) 99 10/10/18 11:52 ED Treatment Course - LABORATORY CBC & Chemistry Diagram: 10/10/18 13:14 10/10/18 13:14 Medical Decision Making - Medical Decision Making 10/10/18 12:37 Patient is a 73 year old female with past medical history of CAD, HTN, HLD, DM, asthma, depression/anxiety, presented with intermittent midsternal chest pressure for a few days. Patient reported chest pressure was accompanied by numbness radiating down the left arm and left leg. She also noted intermittent left temporal headache, eye pain, and left ear deafness. DDx: include but not limited to ACS, MSK, CVA CBC, CMP cardiac profile EKG, CXR 10/10/18 15:05 EKG - NSR CXR - no acute pathology CBC, CMP, Trop - wnl Dispo. *DC/Admit/Observation/Transfer Diagnosis at time of Disposition: Anxiety, Chest pain, atypical - Discharge Dispostion Disposition: HOME Condition at time of disposition: Stable Decision to Admit order: No - Referrals Referrals: Jeremy Pulido MD [Staff Physician] - Osei Lauren MD [Staff Physician] - Jona Winslow MD [Staff Physician] - - Patient Instructions Printed Discharge Instructions: DI for Atypical Chest Pain Additional Instructions: You were here because you had chest pain. You reported that you were feeling down and had not slept in 5 days. Tests were done and were negative for any emergent concerns. Please call Dr. Pulido's office (psychiatrist) to schedule an appointment. You were previously seen by the the neurologist (Dr. Winslow) when you had numbness on your face, arms and legs. Please call his office to schedule an appointment for follow-up. Follow-up with your primary care doctor within 2 days. Call 911 or go to the ED if with any worsening chest pain, shortness of breath, fever, chills, weakness or numbness or any new concerns noted. Estuviste aqu porque tenas dolor en el pecho. Inform que se senta deprimido y no haba dormido en 5 dumont. Se realizaron pruebas y fueron negativas para cualquier inquietud emergente. Por favor llame a la oficina del Dr. Pulido (psiquiatra) para programar aldo tyshawn. Usted fue visto previamente por el neurlogo (Dr. Winslow) cuando tuvo adormecimiento en la ria, los brazos y las piernas. Por favor llame a cee oficina para programar aldo tyshawn de seguimiento. Craig un seguimiento con cee mdico de atencin primaria dentro de 2 dumont. Llame al 911 o vaya a la pete de emergencias si hay un dolor en el pecho que empeora, falta de aliento, fiebre, escalofros, debilidad o entumecimiento o si se notan nuevas inquietudes. Print Language: MAURITANIAN - Post Discharge Activity
[2018-10-10 13:39] LABS: BASO % 0.5 % (0-2.0); EOS % 2.5 % (0-4.5); HEMATOCRIT 35.1 % (32.4-45.2); HEMOGLOBIN 12.2 GM/dL (10.7-15.3); LYMPH % 27.1 % (8-40); MCH 29.9 pg (25.7-33.7); MCHC 34.9 g/dl (32.0-36.0); MEAN CELL VOLUME 85.5 fl (80-96); MEAN PLT VOLUME 7.5 fl (7.5-11.1); MONO % 5.4 % (3.8-10.2); NEUT % 64.5 % (42.8-82.8); PLATELET COUNT 330 K/MM3 (134-434); RDW 12.8 % (11.6-15.6); WHITE BLOOD COUNT 8.2 K/mm3 (4.0-10.0)
[2018-10-10 14:06] LABS: ALBUMIN 3.8 g/dl (3.4-5.0); ALK PHOS 68 U/L (45-117); ANION GAP 7 MMOL/L (8-16); BILIRUBIN,TOTAL 0.6 mg/dL (0.2-1); BLOOD UREA NITROGEN 11 mg/dL (7-18); CALCIUM 8.9 mg/dL (8.5-10.1); CHLORIDE 106 mmol/L (98-107); CO2 29 mmol/L (21-32); CREATININE 0.7 mg/dL (0.55-1.3); GLUCOSE,RANDOM 109 mg/dL (74-106); SGOT/AST 15 U/L (15-37); SGPT/ALT 22 U/L (13-61); SODIUM 141 mmol/L (136-145); TOT PROT 7.4 g/dl (6.4-8.2)
--- NOTE | 2018-10-10 14:36 | PDOC ---
Attending Attestation - Resident Resident Name: Ximena Pichardo - ED Attending Attestation I have performed the following: I have examined & evaluated the patient, The case was reviewed & discussed with the resident, I agree w/resident's findings & plan, Exceptions are as noted - HPI HPI: 10/10/18 14:37 73 F with HTN, DM, HLD presenting with intermittent chest pain and L side numbness. Pt states that the numbness has been on and off for about 5 years. Pt is followed by neurologist. Has had MRI in past year. Denies any NEW numbness. Denies any weakness. Pt also reports midsternal intermittent chest pain. Denies SOB. Denies exertional or pleuritic component. Pt states that this pain has been ongoing for several months. She has been admitted for this same pain in the past and currently follows with Dr. Lauren. This current episode began 2 days ago. - Physicial Exam PE: 10/10/18 14:39 GENERAL: Awake, alert, and fully oriented, in no acute distress. HEAD: No signs of trauma EYES: PERRLA, EOMI, sclera anicteric, conjunctiva clear ENT: Auricles normal inspection, hearing grossly normal, nares patent, oropharynx clear without exudates. Moist mucosa NECK: Nontender, no stepoffs, Normal ROM, supple, no lymphadenopathy, JVD, or masses LUNGS: Breath sounds equal, clear to auscultation bilaterally. No wheezes, and no crackles HEART: Regular rate and rhythm, normal S1 and S2, no murmurs, rubs or gallops ABDOMEN: Soft, nontender, normoactive bowel sounds. No guarding, no rebound. No masses EXTREMITIES: Normal range of motion, no edema. No clubbing or cyanosis. No cords, erythema, or tenderness NEUROLOGICAL: Cranial nerves II through XII intact. 5/5 strength and sensation in all extremities, Normal speech, normal gait, normal cerebellar function SKIN: Warm, Dry, normal turgor, no rashes or lesions noted. - Medical Decision Making 10/10/18 14:39 73 F with intermittent L side numbness and midsternal chest pain. Pt's numbness appears to be chronic. She has no objective neuro deficits on exam (sensation intact bilaterally). Low suspicion for CVA. Pt's chest pain also seems like a chronic issue, as she has been seen for the same complaint previously with negative cardiac work up. - Labs, trop - EKG - CXR 10/10/18 14:54 Labs wnl EKG completely normal, unchanged since prior. CXR with no acute changes Pt is well appearing, with normal vitals. Clinically stable for DC at this time. I discussed the physical exam findings, ancillary test results and final diagnoses with the patient. I answered all of the patient's questions. The patient was satisfied with the care received and felt comfortable with the discharge plan and treatment plan. The patient agrees to follow up with the primary care physician within 24-72 hours.
[2018-10-10 16:05] VITALS: BP 138/62; PULSE 72
--- NOTE | 2018-10-10 21:21 | EKG ---
Test Reason : Blood Pressure : / mmHG Vent. Rate : 087 BPM Atrial Rate : 087 BPM P-R Int : 160 ms QRS Dur : 086 ms QT Int : 346 ms P-R-T Axes : 068 020 051 degrees QTc Int : 416 ms NORMAL SINUS RHYTHM NORMAL ECG WHEN COMPARED WITH ECG OF 26-MAR-2018 03:28, NO SIGNIFICANT CHANGE WAS FOUND Confirmed by LEXI العلي MD ([id number]) on 10/10/2018 9:21:14 PM Referred By: Confirmed By:LEXI العلي MD
== END 2018-10-10 15:20 | disposition home or self-care (01) ==
LOC: JER 11:25
DX: R07.9 Chest pain, unspecified (principal); F41.9 Anxiety disorder, unspecified; I10 Essential (primary) hypertension; E78.00 Pure hypercholesterolemia, unspecified; F41.8 Other specified anxiety disorders; F32.9 Major depressive disorder, single episode, unspecified; E11.9 Type 2 diabetes mellitus without complications; Z87.09 Personal history of other diseases of the respiratory system
CPT/HCPCS: 36415; 71046-TC-FY; 80053; 82550; 84484; 85025; 93005; 93010; 99283-25

== ENCOUNTER 2019-01-22 12:14 | Emergency (ER) | payer OTHER ==
--- NOTE | 2019-01-22 12:42 | PDOC ---
History of Present Illness - General Chief Complaint: Weakness Stated Complaint: Lightheaded Time Seen by Provider: 01/22/19 12:39 - History of Present Illness Initial Comments: 01/22/19 12:41 Ms. Hernandez is a 73 yo female w/ pmh of HTN, HLD, DM, Depression who presents for evaluation of 20-25 minute history of dizziness. Patient reports she was doing her nails and cleaning off her nail [place] with rubbing alcohol while bending over when she began to experience a lightheaded feeling. Patient reports it has now mostly resolved however had concerned her greatly at the time ; prompting her to have a friend call 911. The patient denies chest pain, shortness of breath, and headache. Denies fever, chills, nausea, vomit, diarrhea and constipation. Denies dysuria, frequency, urgency and hematuria. Past History - Past Medical History Allergies/Adverse Reactions: Allergies Allergy/AdvReac Type Severity Reaction Status Date / Time black pepper Allergy Severe Itching Verified 01/22/19 12:26 Penicillins Allergy Unknown Verified 01/22/19 12:26 apple Allergy Uncoded 01/22/19 12:26 Home Medications: Ambulatory Orders Aspirin [ASA -] 81 mg PO DAILY 10/22/15 Atorvastatin Ca [Lipitor] 40 mg PO HS #30 tablet 11/06/17 Metoprolol Succinate [Toprol XL -] 25 mg PO DAILY #30 tab.sr.24h 11/06/17 Amlodipine Besylate 10 mg PO DAILY 03/26/18 Chlorthalidone 25 mg PO DAILY 03/26/18 Gabapentin 600 mg PO HS 03/26/18 Meloxicam 15 mg PO DAILY 03/26/18 Asthma: Yes CVA: Yes (CVA) COPD: No Diabetes: Yes GI Disorders: Yes (hiatal hernia) HTN: Yes Hypercholesterolemia: Yes Psychiatric Problems: Yes (ANXIETY/DEPRESSION) - Immunization History Immunization Up to Date: Yes - Suicide/Smoking/Psychosocial Hx Smoking Status: No Smoking History: Never smoked Have you smoked in the past 12 months: No Number of Cigarettes Smoked Daily: 0 Hx Alcohol Use: No Drug/Substance Use Hx: No Substance Use Type: None Hx Substance Use Treatment: No Review of Systems - Review of Systems Comments:: 01/22/19 12:42 GENERAL/CONSTITUTIONAL: No fever or chills. No weakness. HEAD, EYES, EARS, NOSE AND THROAT: No change in vision. No ear pain or discharge. No sore throat. CARDIOVASCULAR: No chest pain or shortness of breath RESPIRATORY: No cough, wheezing, or hemoptysis. GASTROINTESTINAL: No nausea, vomiting, diarrhea or constipation. GENITOURINARY: No dysuria, frequency, or change in urination. MUSCULOSKELETAL: No joint or muscle swelling or pain. No neck or back pain. SKIN: No rash NEUROLOGIC: +Dizziness as described. No headache, loss of consciousness, or change in strength/sensation. ENDOCRINE: No increased thirst. No abnormal weight change HEMATOLOGIC/LYMPHATIC: No anemia, easy bleeding, or history of blood clots. ALLERGIC/IMMUNOLOGIC: No hives or skin allergy. *Physical Exam - Physical Exam Comments: 01/22/19 12:42 GENERAL: Awake, alert, and fully oriented, in no acute distress HEAD: No signs of trauma, normocephalic, atraumatic EYES: PERRLA, EOMI, sclera anicteric, conjunctiva clear ENT: Auricles normal inspection, hearing grossly normal, nares patent, oropharynx clear without exudates. Moist mucosa NECK: Normal ROM, supple, no lymphadenopathy, JVD, or masses LUNGS: No distress, speaks full sentences, clear to auscultation bilaterally HEART: Regular rate and rhythm, normal S1 and S2, no murmurs, rubs or gallops, peripheral pulses normal and equal bilaterally. ABDOMEN: Soft, nontender, normoactive bowel sounds. No guarding, no rebound. No masses EXTREMITIES: Normal inspection, Normal range of motion, no edema. No clubbing or cyanosis. NEUROLOGICAL: Cranial nerves II through XII grossly intact. Normal speech, normal gait, no focal sensorimotor deficits SKIN: Warm, Dry, normal turgor, no rashes or lesions noted. ED Treatment Course - LABORATORY CBC & Chemistry Diagram: 01/22/19 13:10 01/22/19 13:10 Medical Decision Making - Medical Decision Making 01/22/19 14:27 Ms. Hernandez is a 73 yo female w/ pmh as described who presents for evaluation of symptoms of dizziness. Upon re-exam patient further reports she was intentionally smelling her rubbing alcohol in an attempt to treat some momentary dizziness. Patient reports she feels like her normal self at this time. Patient evaluated with cardiac labs, EKG, CXR. EKG normal sinus. CXR negative. Labs grossly wnl as below. Patient well appearing and able to walk w/ out difficulty. No concern for acute process at this time. Discharging to home for further outpatient f/u as needed. Laboratory Results - last 24 hr 01/22/19 01/22/19 13:10 13:10 WBC 6.9 RBC 4.16 Hgb 13.0 Hct 36.2 MCV 86.9 MCH 31.3 MCHC 36.0 RDW 13.0 Plt Count 280 MPV 7.7 Absolute Neuts (auto) 4.2 Neutrophils % 60.3 Lymphocytes % 31.3 Monocytes % 5.0 Eosinophils % 3.1 Basophils % 0.3 Nucleated RBC % 0 Sodium 135 L Potassium 4.3 Chloride 103 Carbon Dioxide 27 Anion Gap 5 L BUN 16 Creatinine 0.7 Creat Clearance w eGFR 82.49 Random Glucose 94 Calcium 9.3 Total Bilirubin 0.7 AST 14 L ALT 23 Alkaline Phosphatase 73 Creatine Kinase 88 Troponin I < 0.02 Total Protein 7.9 Albumin 4.1 *DC/Admit/Observation/Transfer Diagnosis at time of Disposition: Dizziness - Discharge Dispostion Disposition: HOME - Referrals Referrals: Pauline Ennis MD [Primary Care Provider] - - Patient Instructions Printed Discharge Instructions: DI for Dizziness-Nonvertigo Additional Instructions: You were evaluated today in the ER for your dizziness symptoms. We evaluated you with chest xray, EKG, and labs with no concerning findings. We instructed you to stop sniffing rubbing alcohol as this may worsen your symptoms. Please follow-up with primary care provider in 1-2 days for further evaluation. Return to ER if any fever, chills, pain, increase of dizziness, or other concerning symptoms. - Post Discharge Activity
[2019-01-22 12:44] VITALS: BMI 24.8
--- NOTE | 2019-01-22 12:52 | PDOC ---
Attending Attestation - HPI HPI: 01/22/19 12:53 The patient is a 73 year old female, with a significant past medical history of coronary artery disease, hypertension, hyperlipidemia, asthma, depression, who presents to the emergency department with complaint of dizziness while trying to remove nail [place] with rubbing alcohol. She denies any other symptoms. The patient denies chest pain, shortness of breath, headache and dizziness. The patient denies fever, chills, nausea, vomit, diarrhea and constipation. The patient denies dysuria, frequency, urgency and hematuria. Allergies: Black pepper, Penicillins, Apple. Past surgical history: None reported. Social history: Nonsmoker. Denies EtOH use and recreational drug use. <Brenna Graham - Last Filed: 01/22/19 12:53> - Resident Resident Name: London Hua - ED Attending Attestation I have performed the following: I have examined & evaluated the patient, The case was reviewed & discussed with the resident, I agree w/resident's findings & plan, Exceptions are as noted - Physicial Exam PE: GENERAL: Awake, alert, and fully oriented, in no acute distress HEAD: No signs of trauma EYES: PERRLA, EOMI, sclera anicteric, conjunctiva clear ENT: Auricles normal inspection, hearing grossly normal, nares patent, oropharynx clear without exudates. Moist mucosa NECK: Normal ROM, supple, no lymphadenopathy, JVD, or masses LUNGS: Breath sounds equal, clear to auscultation bilaterally. No wheezes, and no crackles HEART: Regular rate and rhythm, normal S1 and S2, no murmurs, rubs or gallops ABDOMEN: Soft, nontender, normoactive bowel sounds. No guarding, no rebound. No masses EXTREMITIES: Normal range of motion, no edema. No clubbing or cyanosis. No cords, erythema, or tenderness NEUROLOGICAL: Cranial nerves II through XII grossly intact. Normal speech, normal gait. Motor and sensation intact SKIN: Warm, Dry, normal turgor, no rashes or lesions noted. - Medical Decision Making Pt with lightheadedness after bending forward while removing nail [place]. She smelled alcohol to make her feel better. Currently asymptomatic. Exam wnl. DC home. <Roselia Marie - Last Filed: 01/22/19 15:36> Attestations - Attestations 01/22/19 12:54 Documentation prepared by Brenna Graham, acting as medical biller coder for Roselia Marie MD <Brenna Graham - Last Filed: 01/22/19 12:53>
[2019-01-22 13:22] LABS: BASO % 0.3 % (0-2.0); EOS % 3.1 % (0-4.5); HEMATOCRIT 36.2 % (32.4-45.2); LYMPH % 31.3 % (8-40); MCH 31.3 pg (25.7-33.7); MEAN CELL VOLUME 86.9 fl (80-96); MEAN PLT VOLUME 7.7 fl (7.5-11.1); NEUT % 60.3 % (42.8-82.8); PLATELET COUNT 280 K/MM3 (134-434); RBC 4.16 M/mm3 (3.60-5.2); WHITE BLOOD COUNT 6.9 K/mm3 (4.0-10.0)
[2019-01-22 13:49] LABS: ALBUMIN 4.1 g/dl (3.4-5.0); ALK PHOS 73 U/L (45-117); ANION GAP 5 MMOL/L (8-16); BILIRUBIN,TOTAL 0.7 mg/dL (0.2-1); BLOOD UREA NITROGEN 16 mg/dL (7-18); CALCIUM 9.3 mg/dL (8.5-10.1); CHLORIDE 103 mmol/L (98-107); CO2 27 mmol/L (21-32); CREATININE 0.7 mg/dL (0.55-1.3); GLUCOSE,RANDOM 94 mg/dL (74-106); POTASSIUM 4.3 mmol/L (3.5-5.1); SGOT/AST 14 U/L (15-37); SGPT/ALT 23 U/L (13-61); SODIUM 135 mmol/L (136-145); TOT PROT 7.9 g/dl (6.4-8.2)
[2019-01-22 15:45] VITALS: BP 138/63; PULSE 68; TEMP 97.5
--- NOTE | 2019-01-23 17:08 | EKG ---
Test Reason : Blood Pressure : / mmHG Vent. Rate : 072 BPM Atrial Rate : 072 BPM P-R Int : 142 ms QRS Dur : 088 ms QT Int : 372 ms P-R-T Axes : 046 019 047 degrees QTc Int : 407 ms NORMAL SINUS RHYTHM NORMAL ECG WHEN COMPARED WITH ECG OF 10-OCT-2018 11:33, NO SIGNIFICANT CHANGE WAS FOUND Confirmed by HUMBERTO RUBIO MD ([id number]) on 01/23/2019 5:08:00 PM Referred By: Confirmed By:HUMBERTO RUBIO MD
== END 2019-01-22 15:48 | disposition home or self-care (01) ==
LOC: JER 12:14
DX: R42 Dizziness and giddiness (principal); I10 Essential (primary) hypertension; E78.5 Hyperlipidemia, unspecified; E11.9 Type 2 diabetes mellitus without complications; F32.9 Major depressive disorder, single episode, unspecified
CPT/HCPCS: 36415; 71045-TC-FY; 80053; 82550; 84484; 85025; 93005; 93010; 99284-25

== ENCOUNTER 2019-08-27 12:39 | Emergency (ER) | payer OTHER ==
--- NOTE | 2019-08-27 13:09 | PDOC ---
Rapid Medical Evaluation Time Seen by Provider: 08/27/19 13:02 Medical Evaluation: Allergies Allergy/AdvReac Type Severity Reaction Status Date / Time black pepper Allergy Severe Itching Verified 01/22/19 12:26 Penicillins Allergy Unknown Verified 01/22/19 12:26 apple Allergy Uncoded 01/22/19 12:26 08/27/19 13:02 I have performed a brief in-person evaluation of this patient. The patient presents with a chief complaint of: 5 days of worsening back/neck pain radiating down the LLE and LUE, associated with 5 days of LLE, LUE numbness. She has had similar symptoms in the past. No slurred speech. Pertinent physical exam findings: No facial droop, ambulatory without difficulty. BP high. I have ordered labs. The patient will proceed to the ED for further evaluation. 08/27/19 13:10 Discharge Disposition - Diagnosis Back pain - Referrals - Patient Instructions - Post Discharge Activity
[2019-08-27 13:12] VITALS: BMI 29.5
--- NOTE | 2019-08-27 13:28 | PDOC ---
Attending Attestation - Resident Resident Name: Khoi Moralez - HPI HPI: 08/27/19 18:41 PT presents to the ED complaining of numbness to her L arm and shoulder which is chronic. Presents today because this numbness is usually intermittent, but it has been more frequent for the last three days. Denies weakness. Denies injury to her arm. Denies other neurologic complaints. - Physicial Exam PE: 08/27/19 18:42 Agree with resident exam. Patient is alert and oriented and in no acute distress. Lungs are clear. CV: rrr no m/r/g. Neuro: alert and oriented x 3. 5/5 strength b/l biceps flexion, stock digger. Ambulatory with steady gait. - Medical Decision Making 08/27/19 18:45 Pt presents to the ED complaining of acute exacerbation of her chronic L arm numbness. No concern for central causes. Patient instructed to follow up with her PCP or neurologist for C spine MRI. Will discharge home. Of note-- plan was to discharge patient, but she came to the nurses station with skin redness and itching. No respiratory, facial or GI complaints. Reports that she has chronic food allergies, and attributes the reaction to food that she ate while in the ED. GIven atarax, solumedrol and pepcid with resolution of her symptoms. WIll discharge home with instructions to return for worsening symptoms.
[2019-08-27] MEDS ORDERED: ACETAMINOPHEN 500 MG TABLET (FP) PO ONE (13:52)
[2019-08-27] MEDS ORDERED: LIDOCAINE 5% TOPICAL PATCH TP ONE (13:52)
--- NOTE | 2019-08-27 13:53 | PDOC ---
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 Pain is better with exertion and made worse with direct palpation. Pt has a several year history of similar symptoms with multiple evaluations in this department for similar symptoms. She follows with Dr. Gaston but was not able to make an appointment with the clinic this week. She was evaluated in her chiropractor's office today and believes "he massaged it too much," so she was sent to this department for further evaluation. No acute changes in the symptoms today. Medical Hx: - HTN - HLD - DM - Depression - CAD Review of Systems: In addition to that documented in the HPI above, the additional ROS was obtained : Constitutional- Denies fevers or chills Head- Denies vision changes ENMT- Denies sore throat CV- Denies palpitations Resp- Denies SOB GI- Denies vomiting or diarrhea - Denies painful urination or hematuria MSK- Denies recent trauma Skin- Denies new rashes Neuro- Per HPI Endocrine- Denies polyuria Heme- Denies bleeding or bruising Physical Examination: Constitutional- Well-developed, well-nourished elderly adult female in no acute distress or obvious discomfort. Found walking into treatment room unassisted. Answered all questions appropriately and completely. Head- Normocephalic. No obvious external signs of trauma. Eyes- Pupils 4mm and PERRL bilaterally. EOMI. No vertical or horizontal nystagmus. Sclerae white. Conjunctiva moist and not injected. Ears- Hearing grossly intact. Nose- No nasal discharge. Throat- Oral cavity and pharynx normal. No inflammation, swelling, exudate, or lesions. No teeth or dentures. Neck- Supple, trachea is midline. Cardiovascular / Chest- Regular rate and regular rhythm. No murmur, rubs, clicks , or gallops. Peripheral pulses- radial pulses full. Respiratory- Breathing unlabored. Equal chest rise and fall. Clear to auscultation bilaterally. No stridor, no wheezing, no rhonchi. Gastrointestinal- abdomen is soft, non-tender, non-distended. Neuro- Alert and oriented x4. Moving all four extremities spontaneously. No focal deficits. Cranial nerves intact. Sensation to all four extremities intact. No drift in upper or lower extremities. Skin- Warm, dry, and intact. Psych- Affect- appropriate. Mood- normal. Speech was non-labored, non- pressured. Past History - Past Medical History Allergies/Adverse Reactions: Allergies Allergy/AdvReac Type Severity Reaction Status Date / Time black pepper Allergy Severe Itching Verified 01/22/19 12: Penicillins Allergy Unknown Verified 01/22/19 12: apple Allergy Uncoded 01/22/19 12: Home Medications: Ambulatory Orders Aspirin [ASA -] 81 mg PO DAILY 10/22/15 Atorvastatin Ca [Lipitor] 40 mg PO HS #30 tablet 11/06/17 Metoprolol Succinate [Toprol XL -] 25 mg PO DAILY #30 tab.sr.24h 11/06/17 Amlodipine Besylate 10 mg PO DAILY 03/26/18 Chlorthalidone 25 mg PO DAILY 03/26/18 Gabapentin 600 mg PO HS 03/26/18 Meloxicam 15 mg PO DAILY 03/26/18 Asthma: Yes CVA: Yes (CVA) COPD: No Diabetes: Yes GI Disorders: Yes (hiatal hernia) HTN: Yes Hypercholesterolemia: Yes Psychiatric Problems: Yes (ANXIETY/DEPRESSION) - Immunization History Immunization Up to Date: Yes - Psycho Social/Smoking Cessation Hx Smoking Status: No Smoking History: Never smoked Have you smoked in the past 12 months: No Number of Cigarettes Smoked Daily: 0 Information on smoking cessation initiated: No Hx Alcohol Use: No Drug/Substance Use Hx: No Substance Use Type: None Hx Substance Use Treatment: No *Physical Exam - Vital Signs Last Vital Signs Temp Pulse Resp BP Pulse Ox 98.3 F 86 16 195/78 H 100 08/27/19 13:05 08/27/19 13:05 08/27/19 13:05 08/27/19 13:05 08/27/19 13:05 Vital Signs - Vital Signs #1 Blood Pressure: 153/70 (@16:50) MAP: 97 BP Location: Right Arm Blood Pressure Position: Sitting Pulse Rate: 72 O2 Sat by Pulse Oximetry (%): 98 Oxygen Delivery Method: Room Air ED Treatment Course - LABORATORY CBC & Chemistry Diagram: 08/27/19 14:00 08/27/19 14:00 Discharge - Discharge Information Problems reviewed: Yes Clinical Impression/Diagnosis: Numbness Back pain Qualifiers: Back pain location: thoracic back pain Chronicity: chronic Back pain laterality : left Qualified Code(s): M54.6 - Pain in thoracic spine Condition: Good Disposition: HOME - Admission No - Follow up/Referral Referrals: Almaz Macias MD [Primary Care Provider] - Arturo Vizcaino MD, FAATJ [Staff Physician] - Jnoa Winslow MD [Staff Physician] - - Patient Discharge Instructions Patient Printed Discharge Instructions: DI for Thoracic Back Pain Additional Instructions: You were seen today for left sided back pain and left sided body numbness. Your EKG and blood work were normal today. These symptoms are likely related to your chronic left sided pain. It could also be from a nerve in your neck. Follow up with your neurologist within the next 2-3 days. You will need to call to make an appointment. The number is included in this packet. A copy of today s results are attached to this packet. Take it to the appointment so your doctor can review them. You can also follow up with your primary care doctor. You will need to call to make an appointment. The number is included in this packet. A copy of todays results are attached to this packet. Take it to the appointment so your doctor can review them. You can also follow up with a neurosurgeon. I have placed a referral for you to see Dr. Vizcaino. You will need to call to make an appointment. The number is included in this packet. A copy of todays results are attached to this packet. Take it to the appointment so your doctor can review them. Go to the nearest emergency department if your condition worsens or you feel like you need additional emergency evaluation. Print Language: BURUNDIAN - Post Discharge Activity
[2019-08-27 14:19] LABS: BASO % 0.3 % (0-2.0); EOS % 1.8 % (0-4.5); HEMATOCRIT 38.2 % (32.4-45.2); HEMOGLOBIN 12.9 GM/dL (10.7-15.3); LYMPH % 35.6 % (8-40); MCH 29.2 pg (25.7-33.7); MCHC 33.9 g/dl (32.0-36.0); MEAN CELL VOLUME 86.2 fl (80-96); MONO % 5.5 % (3.8-10.2); NEUT % 56.8 % (42.8-82.8); PLATELET COUNT 279 K/MM3 (134-434); RBC 4.43 M/mm3 (3.60-5.2); RDW 13.1 % (11.6-15.6); WHITE BLOOD COUNT 6.3 K/mm3 (4.0-10.0)
[2019-08-27 14:49] LABS: ALBUMIN 4.3 g/dl (3.4-5.0); BILIRUBIN,TOTAL 0.4 mg/dL (0.2-1); BLOOD UREA NITROGEN 14.2 mg/dL (7-18); CALCIUM 9.6 mg/dL (8.5-10.1); CREATININE 0.6 mg/dL (0.55-1.3); MAGNESIUM 2.4 mg/dL (1.8-2.4); POTASSIUM 4.1 mmol/L (3.5-5.1); TOT PROT 7.9 g/dl (6.4-8.2)
[2019-08-27 14:51] LABS: PHOSPHOROUS 3.2 mg/dL (2.5-4.9)
[2019-08-27] MEDS ORDERED: LIDOCAINE 5% TOPICAL PATCH ONE (15:49)
[2019-08-27] MEDS ORDERED: ACETAMINOPHEN 325 MG TABLET (FP) ONE (15:49)
[2019-08-27] MEDS ORDERED: FAMOTIDINE 20 MG/50 ML IVPB 20 MG/50 ML MG IVPB ONE ×2 (17:19→17:24)
[2019-08-27] MEDS ORDERED: methylPREDNISolone NA SUCC 125 MG/2 ML VIAL IVPUSH ONE (17:19)
[2019-08-27] MEDS ORDERED: methylPREDNISolone NA SUCC 125 MG/2 ML VIAL ONE ×2 (17:23→17:25)
[2019-08-27] MEDS ORDERED: hydrOXYzine HCL 10 MG/5 ML LIQUID BULK BOTTLE PO ONE (17:47)
[2019-08-27] MEDS ORDERED: hydrOXYzine PAMOATE 25 MG CAPSULE (FP) PO ONE (17:48)
[2019-08-27 18:47] VITALS: BP 130/70; PULSE 74; TEMP 98
[2019-08-27] MEDS ORDERED: LIDOCAINE PATCH REMOVAL MC SCH (22:00)
--- NOTE | 2019-08-28 14:52 | EKG ---
Test Reason : Blood Pressure : / mmHG Vent. Rate : 068 BPM Atrial Rate : 068 BPM P-R Int : 150 ms QRS Dur : 086 ms QT Int : 376 ms P-R-T Axes : 050 015 031 degrees QTc Int : 399 ms NORMAL SINUS RHYTHM NORMAL ECG WHEN COMPARED WITH ECG OF 22-JAN-2019 12:24, NO SIGNIFICANT CHANGE WAS FOUND Confirmed by LEXI العلي MD ([id number]) on 08/28/2019 2:52:37 PM Referred By: Confirmed By:LEXI العلي MD
== END 2019-08-27 18:36 | disposition home or self-care (01) ==
LOC: JER 12:39
PROC: 3E033GC Introduction of Other Therapeutic Substance into Peripheral Vein, Percutaneous Approach (ICD-10-PCS; principal; 2019-08-27)
PROC: 3E033GC Introduction of Other Therapeutic Substance into Peripheral Vein, Percutaneous Approach (ICD-10-PCS; 2019-08-27)
PROC: 3E0333Z Introduction of Anti-inflammatory into Peripheral Vein, Percutaneous Approach (ICD-10-PCS; 2019-08-27)
DX: M54.6 Pain in thoracic spine (principal); R20.0 Anesthesia of skin; I25.10 Atherosclerotic heart disease of native coronary artery without angina pectoris; I10 Essential (primary) hypertension; E78.5 Hyperlipidemia, unspecified; E11.9 Type 2 diabetes mellitus without complications; F32.9 Major depressive disorder, single episode, unspecified; Z88.0 Allergy status to penicillin; Z91.018 Allergy to other foods; Z91.02 Food additives allergy status; L29.8 Other pruritus; L54 Erythema in diseases classified elsewhere
CPT/HCPCS: 36415; 80053; 82550; 83735; 84100; 84484; 85025; 93005; 93010; 96365; 96375; 99284-25

== ENCOUNTER 2019-09-21 15:20 | Emergency (ER) | payer OTHER ==
[2019-09-21 15:41] VITALS: PULSE 94; BMI 24.2
--- NOTE | 2019-09-21 15:41 | PDOC ---
Rapid Medical Evaluation Time Seen by Provider: 09/21/19 15:39 Medical Evaluation: Allergies Allergy/AdvReac Type Severity Reaction Status Date / Time black pepper Allergy Severe Itching Verified 01/22/19 12:26 Penicillins Allergy Unknown Verified 01/22/19 12:26 apple Allergy Uncoded 01/22/19 12:26 09/21/19 15:39 I have performed a brief in-person evaluation of this patient. The patient presents with a chief complaint of: llq pain Pertinent physical exam findings:stable and in NAD, non-focal I have ordered the following:labs The patient will proceed to the ED for further evaluation.
[2019-09-21 16:31] LABS: URINE APPEARANCE CLEAR; URINE BILIRUBIN NEGATIVE (NEGATIVE); URINE COLOR YELLOW; URINE GLUCOSE (UA) NEGATIVE (NEGATIVE); URINE KETONE NEGATIVE (NEGATIVE); URINE LEUK ESTERASE NEGATIVE (NEGATIVE); URINE NITRITE NEGATIVE (NEGATIVE); URINE PROTEIN NEGATIVE (NEGATIVE); URINE UROBILINOGEN 0.2 mg/dL (0.2-1.0)
[2019-09-21 16:32] LABS: BASO % 0.4 % (0-2.0); EOS % 2.3 % (0-4.5); HEMATOCRIT 38.6 % (32.4-45.2); HEMOGLOBIN 12.7 GM/dL (10.7-15.3); MCH 28.8 pg (25.7-33.7); MCHC 32.9 g/dl (32.0-36.0); MEAN CELL VOLUME 87.7 fl (80-96); MEAN PLT VOLUME 8.1 fl (7.5-11.1); MONO % 5.3 % (3.8-10.2); PLATELET COUNT 331 K/MM3 (134-434); RDW 13.4 % (11.6-15.6)
[2019-09-21 17:02] LABS: ALBUMIN 4.2 g/dl (3.4-5.0); ALK PHOS 62 U/L (45-117); ANION GAP 5 MMOL/L (8-16); BILIRUBIN,TOTAL 0.7 mg/dL (0.2-1); BLOOD UREA NITROGEN 12.2 mg/dL (7-18); CALCIUM 9.9 mg/dL (8.5-10.1); CHLORIDE 107 mmol/L (98-107); CO2 27 mmol/L (21-32); CREATININE 0.9 mg/dL (0.55-1.3); GLUCOSE,RANDOM 167 mg/dL (74-106); LIPASE 154 U/L (73-393); POTASSIUM 4.3 mmol/L (3.5-5.1); SGOT/AST 14 U/L (15-37); SGPT/ALT 20 U/L (13-61); SODIUM 140 mmol/L (136-145); TOT PROT 7.7 g/dl (6.4-8.2)
--- NOTE | 2019-09-21 17:04 | PDOC ---
Attending Attestation - Resident Resident Name: Mora Benedict - ED Attending Attestation I have performed the following: I have examined & evaluated the patient, The case was reviewed & discussed with the resident, I agree w/resident's findings & plan, Exceptions are as noted - HPI HPI: 09/21/19 17:04 Ms. Hernandez presents emergency department with a complaint of left flank and abdominal pain Patient unable to clearly define when her symptoms began. Located in the left side of her abdomen Also located in her left flank Patient is a very difficult historian as she frequently changes her story Patient may have associated diarrhea No dysuria, no hematuria No traumatic injury No prior episodes like this No skin change 09/21/19 17:26 - Physicial Exam PE: 09/21/19 17:02 GENERAL: The patient is in no acute distress, ambulatory through the emergency department with no difficulty. ENT: Ears normal, nares patent, oropharynx clear without exudates. Moist mucous membranes. NECK: Normal range of motion, supple, no nuchal rigidity LUNGS: Breath sounds equal, clear to auscultation bilaterally. No wheezes, and no crackles. HEART:Regular rate and rhythm, normal S1 and S2 without murmur, rub or gallop. ABDOMEN: Soft, no left lower quadrant tenderness, no CVA tenderness to palpation EXTREMITIES: Normal range of motion, no edema. NEUROLOGICAL: Cranial nerves II through XII grossly intact. Normal speech. No focal neurological deficits. SKIN: Warm, Dry, normal turgor, no rashes or lesions noted. 09/21/19 17:30 - Medical Decision Making 74-year-old female presenting to the emergency department with a complaint of left flank pain as well as left abdominal pain. Symptoms may be associated with diarrhea. Patient has no urinary symptoms Differential diagnosis includes but is not limited to: Diverticulitis, nephrolithiasis, pyelonephritis, cystitis We will do: Labs UA CT abdomen and pelvis with contrast 09/21/19 17:02 Laboratory Tests 09/21/19 09/21/19 15:57 15:57 WBC 8.0 Hgb 12.7 Hct 38.6 Plt Count 331 Urine Blood Negative Urine Nitrite Negative Ur Leukocyte Esterase Negative 09/21/19 17:26 Laboratory Tests 09/21/19 15:57 BUN 12.2 Creatinine 0.[address] pending We will assess lactate 09/21/19 17:31 09/21/19 17:32 09/21/19 18:48 EKG: Normal sinus rhythm, rate of 76 bpm, axis is normal, intervals are normal, no ST elevation or depression, T waves upright Signed out to Dr. Lancaster
--- NOTE | 2019-09-21 17:13 | PDOC ---
History of Present Illness - General Chief Complaint: Pain, Acute Stated Complaint: ABD.PAIN Time Seen by Provider: 09/21/19 15:39 - History of Present Illness Initial Comments: Nika Hernandez is a 74yo woman with a PMH of CAD, HTN, HLD, DM, asthma, depression/anxiety and chronic constipation who was sent to the ED from her PMD clinic for evaluation of LLQ pain and frequent flatus for the past week. Ms Hernandez initially reported diarrhea at clinic (per paper records she brought) but now clarifies that she has small amounts of liquid stool along with gas. She repeatedly denies diarrhea, reporting instead that she has severe constipation and needs to take "laxatives and a powder" every day and still only has a BM about once per week. Ms Hernandez says that the pain "comes and goes" and has been present for "a while." She says that the pain was present in the past, but she "never thought much of it." She states that her abdominal pain is in the LLQ and left flank but is unable to say whether the pain radiates. She does not report any association or worsening of the pain with movement, eating, bowel movements, time of day, or any other activity. She endorses urinary frequency but denies any dysuria, urgency or hematuria. The pt denies any fevers, chills, vomiting, poor PO intake, right-sided abdominal pain, or any other recent symptoms. Past History - Past Medical History Allergies/Adverse Reactions: Allergies Allergy/AdvReac Type Severity Reaction Status Date / Time black pepper Allergy Severe Itching Verified 09/21/19 15:41 Penicillins Allergy Unknown Verified 09/21/19 15:41 apple Allergy Uncoded 09/21/19 15:41 Home Medications: Ambulatory Orders Hydroxyzine HCl 25 mg PO HS 09/21/19 Loratadine 10 mg PO DAILY 09/21/19 Losartan Potassium 100 mg PO DAILY 09/21/19 Metformin HCl [Glucophage] 500 mg PO BID 09/21/19 Metoprolol Succinate [Toprol XL -] 100 mg PO DAILY 09/21/19 Paroxetine HCl 10 mg PO DAILY 09/21/19 Polyethylene Glycol 3350 17 gm PO DAILY 09/21/19 Asthma: Yes CVA: Yes (CVA) COPD: No Diabetes: Yes GI Disorders: Yes (hiatal hernia) HTN: Yes Hypercholesterolemia: Yes Psychiatric Problems: Yes (ANXIETY/DEPRESSION) - Immunization History Immunization Up to Date: Yes - Psycho Social/Smoking Cessation Hx Smoking Status: No Smoking History: Never smoked Have you smoked in the past 12 months: No Number of Cigarettes Smoked Daily: 0 Hx Alcohol Use: No Drug/Substance Use Hx: No Substance Use Type: None Hx Substance Use Treatment: No Review of Systems - Review of Systems Comments:: General: No fevers, no chills, no weight or appetite change, no malaise HEENT: No changes in vision, no changes in hearing, no congestion, no sore throat CV: No chest pain, no palpitations, no LE edema Pulm: No SOB, no cough, no wheezing GI: See HPI : No frequency, no urgency, no dysuria Musc: No back pain, no joint swelling, no recent injury Skin: No rash, no lesions, no erythema Endo: No excessive thirst, no heat/cold intolerance Heme: No unusual bruising or bleeding, no swollen glands Neuro: No syncope, no numbness/tingling, no focal weakness Vasc: No claudication Psych: No recent change in mood, no SI or HI *Physical Exam - Vital Signs Last Vital Signs Temp Pulse Resp BP Pulse Ox 97.9 F 94 H 16 152/62 98 09/21/19 15:39 09/21/19 15:39 09/21/19 15:39 09/21/19 15:39 09/21/19 15:39 - Physical Exam Comments: General: Comfortable, no acute distress HEENT: Atraumatic, PERRL, EOMI, MMM, voice normal, normal neck ROM Cards: RRR, no murmur appreciated Pulm: Comfortable on room air, clear to auscultation bilaterally Abd: Soft, nontender, nondistended, no rigidity, no guarding : No CVA tenderness Ext: Atraumatic. No LE edema. ROM intact. WWP Skin: Normal color, no rashes or lesions Neuro: A&Ox3, CN grossly intact, normal speech, motor/sensory grossly intact and symmetric Psych: Mood appropriate to situation ED Treatment Course - LABORATORY CBC & Chemistry Diagram: 09/21/19 15:57 09/21/19 15:57 - ADDITIONAL ORDERS Additional order review: Laboratory Results 09/21/19 09/21/19 09/21/19 15:57 15:57 15:57 WBC 8.0 RBC 4.40 Hgb 12.7 Hct 38.6 MCV 87.7 MCH 28.8 MCHC 32.9 RDW 13.4 Plt Count 331 MPV 8.1 Absolute Neuts (auto) 4.8 Neutrophils % 60.0 Lymphocytes % 32.0 Monocytes % 5.3 Eosinophils % 2.3 Basophils % 0.4 Nucleated RBC % 0 Sodium 140 Potassium 4.3 Chloride 107 Carbon Dioxide 27 Anion Gap 5 L BUN 12.2 Creatinine 0.9 Est GFR (CKD-EPI)AfAm 74.04 Est GFR (CKD-EPI)NonAf 63.88 Random Glucose 167 H Calcium 9.9 Total Bilirubin 0.7 AST 14 L ALT 20 Alkaline Phosphatase 62 Total Protein 7.7 Albumin 4.2 Lipase 154 Urine Color Yellow Urine Appearance Clear Urine pH 7.0 Ur Specific [place] 1.003 L Urine Protein Negative Urine Glucose (UA) Negative Urine Ketones Negative Urine Blood Negative Urine Nitrite Negative Urine Bilirubin Negative Urine Urobilinogen 0.2 Ur Leukocyte Esterase Negative 09/21/19 15:57 RBC 4.40 MCV 87.7 MCHC 32.9 RDW 13.4 MPV 8.1 Neutrophils % 60.0 Lymphocytes % 32.0 Monocytes % 5.3 Eosinophils % 2.3 Basophils % 0.4 - RADIOLOGY Radiology Studies Ordered: Category Date Time Status ABDOMEN & PELVIS CT WITH CONTR [CT] Stat CT Scan 09/21/19 17:04 Ordered Medical Decision Making - Medical Decision Making 09/21/19 17:13 Nika Hernandez is a 74yo woman with a PMH of CAD, HTN, HLD, DM, asthma, depression/anxiety and chronic constipation who was sent to the ED from her PMD clinic for evaluation of LLQ pain and frequent flatus for the past week. She additionally reports incontinence of small amounts of stool along with flatus. Ms Hernandez is a poor historian and is unable to give additional details. 09/21/19 17:51 - Labs reviewed. Unremarkable - UA negative - Pt currently at CT, will review when completed - Adding lactate given report of abdominal pain and benign exam, cannot exclude mesenteric ischemia. Pt is unable to report whether her pain is associated with eating. 09/21/19 18:43 - CT completed, reviewed in ED. No significant inflammatory changes, stool burden, or stones appreciated. Radiology report pending 09/21/19 18:58 - Sign out given to Dr Moss for the remainder of her ED care. Discussed with Dr Nick Benedict PGY2 Discharge - Discharge Information Problems reviewed: Yes Clinical Impression/Diagnosis: Abdominal pain Qualifiers: Abdominal location: left lower quadrant Qualified Code(s): R10.32 - Left lower quadrant pain Condition: Stable - Follow up/Referral Referrals: Almaz Macias MD [Primary Care Provider] - - Patient Discharge Instructions - Post Discharge Activity
[2019-09-21 18:48] VITALS: BP 171/77; TEMP 98
--- NOTE | 2019-09-21 19:19 | PDOC ---
*Physical Exam - Vital Signs Last Vital Signs Temp Pulse Resp BP Pulse Ox 98.0 F 94 H 12 171/77 H 99 09/21/19 18:45 09/21/19 18:45 09/21/19 18:45 09/21/19 18:45 09/21/19 18:45 ED Treatment Course - LABORATORY CBC & Chemistry Diagram: 09/21/19 15:57 09/21/19 15:57 - ADDITIONAL ORDERS Additional order review: Laboratory Results 09/21/19 09/21/19 15:57 15:57 Sodium 140 Potassium 4.3 Chloride 107 Carbon Dioxide 27 Anion Gap 5 L BUN 12.2 Creatinine 0.9 Est GFR (CKD-EPI)AfAm 74.04 Est GFR (CKD-EPI)NonAf 63.88 Random Glucose 167 H Calcium 9.9 Total Bilirubin 0.7 AST 14 L ALT 20 Alkaline Phosphatase 62 Total Protein 7.7 Albumin 4.2 Lipase 154 Urine Color Yellow Urine Appearance Clear Urine pH 7.0 Ur Specific [place] 1.003 L Urine Protein Negative Urine Glucose (UA) Negative Urine Ketones Negative Urine Blood Negative Urine Nitrite Negative Urine Bilirubin Negative Urine Urobilinogen 0.2 Ur Leukocyte Esterase Negative 09/21/19 15:57 RBC 4.40 MCV 87.7 MCHC 32.9 RDW 13.4 MPV 8.1 Neutrophils % 60.0 Lymphocytes % 32.0 Monocytes % 5.3 Eosinophils % 2.3 Basophils % 0.4 Medical Decision Making - Medical Decision Making Pt signed out by Dr. Benedict. Pending lactic and CT abd/pelvis. CT abd/pelvis: No definite CT findings of acute pathology are identified. Mild colonic diverticulosis is noted without evidence of acute diverticulitis. In comparison to a 2015 CT exam the common bile duct now appears slightly prominent measuring 0.7 cm in diameter. Clinical/laboratory correlation is suggested. No radiopaque biliary calculus is visualized. Nonemergent MRI MRCP evaluation may be performed. Moderate diffuse colonic fecal retention. AST/ALT/tbili not elevated, can follow up with PMD. Likely constipation. Pending lactic acid. 09/21/19 19:18 Troponin negative. Lactic acid <2 Pt tolerating PO intake in ED. Will send Fleet Enema to pt pharmacy. Pt safe for d/c to home with PCP and GI f/u. Strict return precautions provided with pt understanding. 09/21/19 19:55 Discharge - Discharge Information Problems reviewed: Yes Clinical Impression/Diagnosis: Abdominal pain Qualifiers: Abdominal location: left lower quadrant Qualified Code(s): R10.32 - Left lower quadrant pain Condition: Good Disposition: HOME - Admission No - Follow up/Referral Referrals: Almaz Macias MD [Primary Care Provider] - Jose Smith MD [Staff Physician] - - Patient Discharge Instructions Patient Printed Discharge Instructions: DI for Constipation, DI for Abdominal Pain-Adult Additional Instructions: You were seen in the ER today for abdominal pain. The results of your labs and imaging today showed a large biliary duct, but no gallstones or diverticulitis. Please follow-up with your primary care doctor and GI within 1-2 days to discuss your visit and make sure your symptoms have improved. Please return to the ER if you have any worsening pain, development of fevers or chills, loss of consciousness, inability to tolerate food or fluids, or any other concerns. I have sent medications to your pharmacy. Please take these medications as prescribed. - Post Discharge Activity
--- NOTE | 2019-09-22 12:47 | EKG ---
Test Reason : Blood Pressure : / mmHG Vent. Rate : 086 BPM Atrial Rate : 086 BPM P-R Int : 166 ms QRS Dur : 082 ms QT Int : 364 ms P-R-T Axes : 061 016 059 degrees QTc Int : 435 ms NORMAL SINUS RHYTHM NORMAL ECG WHEN COMPARED WITH ECG OF 27-AUG-2019 16:41, NONSPECIFIC T WAVE ABNORMALITY NOW EVIDENT IN LATERAL LEADS Confirmed by ZOHRA HAM, LEXI ([id number]) on 09/22/2019 12:47:43 PM Referred By: Confirmed By:LEXI العلي MD
== END 2019-09-21 20:04 | disposition home or self-care (01) ==
LOC: JER 15:20
DX: R10.32 Left lower quadrant pain (principal); I25.10 Atherosclerotic heart disease of native coronary artery without angina pectoris; I10 Essential (primary) hypertension; E11.9 Type 2 diabetes mellitus without complications; Z79.84 Long term (current) use of oral hypoglycemic drugs; F41.9 Anxiety disorder, unspecified; F32.9 Major depressive disorder, single episode, unspecified; E78.00 Pure hypercholesterolemia, unspecified; K44.9 Diaphragmatic hernia without obstruction or gangrene; Z86.73 Personal history of transient ischemic attack (TIA), and cerebral infarction without residual deficits; Z88.0 Allergy status to penicillin; Z91.018 Allergy to other foods; Z91.02 Food additives allergy status
CPT/HCPCS: 36415; 74177-TC; 80053; 81003; 82550; 83605; 83690; 84484; 85025; 93005; 93010; 99284-25; Q9967

== ENCOUNTER 2019-11-08 14:05 | Emergency (ER) | payer OTHER ==
--- NOTE | 2019-11-08 14:15 | PDOC ---
Rapid Medical Evaluation Medical Evaluation: Allergies Allergy/AdvReac Type Severity Reaction Status Date / Time black pepper Allergy Severe Itching Verified 11/08/19 14:13 Penicillins Allergy Unknown Verified 11/08/19 14:13 apple Allergy Uncoded 11/08/19 14:13 I have performed a brief in-person evaluation of this patient. 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 11/08/19 14:14
[2019-11-08 14:17] VITALS: TEMP 97.5; BMI 27.1
[2019-11-08] MEDS ORDERED: IBUPROFEN 400 MG TABLET (FP) PO ONE ×2 (15:12→15:14)
--- NOTE | 2019-11-08 15:19 | PDOC ---
History of Present Illness - General Chief Complaint: Chest Pain Stated Complaint: CHEST PAIN Time Seen by Provider: 11/08/19 14:12 History Source: Patient Exam Limitations: No Limitations - History of Present Illness Initial Comments: 11/08/19 16:07 74-year-old female presents to ED with complaints of midsternal chest soreness worsened with movement for the past 2 days. Patient states has been cleaning her house because she has been more anxious and it helps her relax. Patient denies difficulty breathing, palpitations, dizziness, weakness, nausea or increased sweating. Presenting Symptoms: Chest Pain Timing/Duration: reports: intermittent Severity/Quality: reports: mild, dull Location: reports: substernal Chest Pain Radiation: reports: no radiation Activities at Onset: reports: exertion Modifying Factors: improves with: movement Nitro Today/Relief: Yes: no nitro taken today Aspirin Received prior to arrival (Core Measure): Yes: no aspirin today Associated Symptoms: Yes: Chest Pain/pressure Past History - Travel Traveled outside of the country in the last 30 days: No Close contact w/someone who was outside of country & ill: No - Past Medical History Allergies/Adverse Reactions: Allergies Allergy/AdvReac Type Severity Reaction Status Date / Time black pepper Allergy Severe Itching Verified 11/08/19 14:13 Penicillins Allergy Unknown Verified 11/08/19 14:13 apple Allergy Uncoded 11/08/19 14:13 Home Medications: Ambulatory Orders Hydroxyzine HCl 25 mg PO HS 09/21/19 Loratadine 10 mg PO DAILY 09/21/19 Losartan Potassium 100 mg PO DAILY 09/21/19 Metformin HCl [Glucophage] 500 mg PO BID 09/21/19 Metoprolol Succinate [Toprol XL -] 100 mg PO DAILY 09/21/19 Paroxetine HCl 10 mg PO DAILY 09/21/19 Polyethylene Glycol 3350 17 gm PO DAILY 09/21/19 Sodium Phosphate/Na Biphos [Fleet Adult Rectal Enema] 133 ml RC ONCE #1 enema Asthma: Yes CVA: Yes (CVA) COPD: No Diabetes: Yes GI Disorders: Yes (hiatal hernia) HTN: Yes Hypercholesterolemia: Yes Psychiatric Problems: Yes (ANXIETY/DEPRESSION) - Immunization History Immunization Up to Date: Yes - Psycho Social/Smoking Cessation Hx Smoking Status: No Smoking History: Never smoked Have you smoked in the past 12 months: No Number of Cigarettes Smoked Daily: 0 Hx Alcohol Use: No Drug/Substance Use Hx: No Substance Use Type: None Hx Substance Use Treatment: No Patient Lives Alone: No Lives with/in: spouse/SO Review of Systems - Review of Systems Able to Perform ROS?: Yes Constitutional: No: Symptoms Reported HEENTM: No: Symptoms Reported Respiratory: No: Symptoms reported Cardiac (ROS): Yes: Chest Pain ABD/GI: No: Symptoms Reported : No: Symptoms Reported Musculoskeletal: Yes: Muscle Pain Endocrine: No: Symptoms Reported Hematologic/Lymphatic: No: Symptoms Reported *Physical Exam - Vital Signs Last Vital Signs Temp Pulse Resp BP Pulse Ox 97.5 F L 74 16 150/42 L 100 11/08/19 14:13 11/08/19 14:13 11/08/19 14:13 11/08/19 14:13 11/08/19 14:13 - Physical Exam General Appearance: Yes: Nourished, Appropriately Dressed. No: Apparent Distress HEENT: negative: Pale Conjunctivae Neck: positive: Normal Thyroid, Supple Respiratory/Chest: positive: Chest Tender (Midsternal and bilaterally), Lungs Clear, Normal Breath Sounds. negative: Respiratory Distress, Accessory Muscle Use Cardiovascular: positive: Regular Rhythm, Regular Rate. negative: Murmur Gastrointestinal/Abdominal: positive: Soft. negative: Tenderness Musculoskeletal: negative: CVA Tenderness Extremity: positive: Normal Inspection Integumentary: positive: Normal Color, Warm, Moist Neurologic: positive: Motor Strength 5/5 (Ambulatory) Heart Score/ECG Review - ECG Intrepretation Rhythm: Regular Rhythm (Normal sinus rhythm rate [address] elevation or depression intervals regular.) ED Treatment Course - LABORATORY CBC & Chemistry Diagram: 11/08/19 15:00 11/08/19 15:00 - ADDITIONAL ORDERS Additional order review: Laboratory Results 11/08/19 15:00 Sodium 141 Potassium 3.9 Chloride 107 Carbon Dioxide 27 Anion Gap 7 L BUN 13.3 Creatinine 0.7 Est GFR (CKD-EPI)AfAm 100.32 Est GFR (CKD-EPI)NonAf 86.56 Random Glucose 103 Calcium 9.4 Total Bilirubin 0.4 AST 17 ALT 23 Alkaline Phosphatase 64 Troponin I < 0.02 Total Protein 8.0 Albumin 4.1 11/08/19 15:00 RBC 4.37 MCV 87.4 MCHC 33.8 RDW 12.9 MPV 8.4 Neutrophils % 55.7 Lymphocytes % 36.0 Monocytes % 5.6 Eosinophils % 2.2 Basophils % 0.5 - Medications Given in the ED: ED Medications Discontinued Medications Generic Name Dose Route Start Last Admin Trade Name Millie PRN Reason Stop Dose Admin Ibuprofen 400 mg 11/08/19 15:12 11/08/19 15:19 Motrin - PO 11/08/19 15:13 400 mg ONCE ONE Administration Medical Decision Making - Medical Decision Making 11/08/19 16:07 Chief complaint: Midsternal chest soreness worsened with movement for the past day patient states was cleaning her house for the past 3 days patient took no medication for the above and decided come to the ER for further evaluation. Exam: Patient reproducible midsternal chest pain otherwise normal physical exam Plan labs, EKG, chest x-ray and Motrin ordered 11/08/19 17:08 Patient states feeling better. Chest x-ray shows no acute pathology. Will discharge patient home with recommendations to take Motrin Discharge - Discharge Information Problems reviewed: Yes Clinical Impression/Diagnosis: Chest wall pain Condition: Improved Disposition: HOME - Follow up/Referral Referrals: Brian Jauregui MD [Primary Care Provider] - - Patient Discharge Instructions Patient Printed Discharge Instructions: DI for Musculoskeletal Pain Additional Instructions: Avoid movements that trigger discomfort. Take Motrin as needed - Post Discharge Activity
[2019-11-08 15:36] LABS: BASO % 0.5 % (0-2.0); EOS % 2.2 % (0-4.5); HEMATOCRIT 38.2 % (32.4-45.2); HEMOGLOBIN 12.9 GM/dL (10.7-15.3); MCH 29.6 pg (25.7-33.7); MCHC 33.8 g/dl (32.0-36.0); MEAN CELL VOLUME 87.4 fl (80-96); MEAN PLT VOLUME 8.4 fl (7.5-11.1); MONO % 5.6 % (3.8-10.2); NEUT % 55.7 % (42.8-82.8); PLATELET COUNT 293 K/MM3 (134-434); RBC 4.37 M/mm3 (3.60-5.2); RDW 12.9 % (11.6-15.6); WHITE BLOOD COUNT 7.4 K/mm3 (4.0-10.0)
[2019-11-08 16:19] LABS: ALBUMIN 4.1 g/dl (3.4-5.0); ALK PHOS 64 U/L (45-117); ANION GAP 7 MMOL/L (8-16); BILIRUBIN,TOTAL 0.4 mg/dL (0.2-1); BLOOD UREA NITROGEN 13.3 mg/dL (7-18); CALCIUM 9.4 mg/dL (8.5-10.1); CHLORIDE 107 mmol/L (98-107); CO2 27 mmol/L (21-32); CREATININE 0.7 mg/dL (0.55-1.3); GLUCOSE,RANDOM 103 mg/dL (74-106); POTASSIUM 3.9 mmol/L (3.5-5.1); SGOT/AST 17 U/L (15-37); SGPT/ALT 23 U/L (13-61); SODIUM 141 mmol/L (136-145)
[2019-11-08 17:43] VITALS: BP 156/74; PULSE 62
--- NOTE | 2019-11-09 12:58 | EKG ---
Test Reason : Blood Pressure : / mmHG Vent. Rate : 074 BPM Atrial Rate : 074 BPM P-R Int : 164 ms QRS Dur : 086 ms QT Int : 360 ms P-R-T Axes : 066 028 056 degrees QTc Int : 399 ms NORMAL SINUS RHYTHM NORMAL ECG WHEN COMPARED WITH ECG OF 21-SEP-2019 19:21, NO SIGNIFICANT CHANGE WAS FOUND Confirmed by MD Buchanan Daniel ([id number]) on 11/09/2019 12:58:40 PM Referred By: Confirmed By:Brian Buchanan MD
== END 2019-11-08 17:43 | disposition home or self-care (01) ==
LOC: JER 14:05
DX: R07.89 Other chest pain (principal); I10 Essential (primary) hypertension; E78.00 Pure hypercholesterolemia, unspecified; E11.9 Type 2 diabetes mellitus without complications; Z79.84 Long term (current) use of oral hypoglycemic drugs; F41.9 Anxiety disorder, unspecified; F32.9 Major depressive disorder, single episode, unspecified; Z87.09 Personal history of other diseases of the respiratory system; Z86.73 Personal history of transient ischemic attack (TIA), and cerebral infarction without residual deficits; Z88.0 Allergy status to penicillin; Z91.018 Allergy to other foods; Z91.02 Food additives allergy status
CPT/HCPCS: 36415; 71046-TC-FY; 80053; 84484; 85025; 93005; 93010; 99283-25

== ENCOUNTER 2019-12-22 09:13 | Emergency (ER) | payer OTHER ==
[2019-12-22 09:31] VITALS: BP 144/69; PULSE 98; TEMP 97.9; BMI 25.2
[2019-12-22] MEDS ORDERED: SODIUM CHLORIDE 1,000 ML IV STA (10:39)
--- NOTE | 2019-12-22 10:46 | PDOC ---
History of Present Illness - General History Source: Patient Exam Limitations: No Limitations - History of Present Illness Initial Comments: 12/22/19 10:41 Patient is a 74-year-old female who presents to the ED with complaint of suprapubic pain and left flank pain for the last 1 week. She admits to having burning when she urinates, frequency and hematuria. She denies any fevers or chills. She has been taking Motrin for the pain. She denies any nausea or vomiting. The patient has a history of hypertension, hyperlipidemia and diabetes. She admits to being allergic to Tylenol and pcn. <Felecia Villarreal - Last Filed: 12/22/19 13:35> <Brittney Dong - Last Filed: 12/23/19 15:58> - General Chief Complaint: Urinary Problem Stated Complaint: R/O UTI Time Seen by Provider: 12/22/19 10:35 Past History - Past Medical History Asthma: Yes CVA: Yes (CVA) COPD: No Diabetes: Yes GI Disorders: Yes (hiatal hernia) HTN: Yes Hypercholesterolemia: Yes Psychiatric Problems: Yes (ANXIETY/DEPRESSION) - Immunization History Immunization Up to Date: Yes - Psycho Social/Smoking Cessation Hx Smoking Status: No Smoking History: Never smoked Have you smoked in the past 12 months: No Number of Cigarettes Smoked Daily: 0 Hx Alcohol Use: No Drug/Substance Use Hx: No Substance Use Type: None Hx Substance Use Treatment: No <Felecia Villarreal - Last Filed: 12/22/19 13:35> <Brittney Dong - Last Filed: 12/23/19 15:58> - Past Medical History Allergies/Adverse Reactions: Allergies Allergy/AdvReac Type Severity Reaction Status Date / Time black pepper Allergy Severe Itching Verified 12/22/19 09:31 Penicillins Allergy Unknown Verified 12/22/19 09:31 apple Allergy Uncoded 12/22/19 09:31 Home Medications: Ambulatory Orders Hydroxyzine HCl 25 mg PO HS 09/21/19 Loratadine 10 mg PO DAILY 09/21/19 Losartan Potassium 100 mg PO DAILY 09/21/19 Metformin HCl [Glucophage] 500 mg PO BID 09/21/19 Metoprolol Succinate [Toprol XL -] 100 mg PO DAILY 09/21/19 Paroxetine HCl 10 mg PO DAILY 09/21/19 Polyethylene Glycol 3350 17 gm PO DAILY 09/21/19 Sodium Phosphate/Na Biphos [Fleet Adult Rectal Enema] 133 ml RC ONCE #1 enema Ibuprofen [Motrin -] 400 mg PO TID PRN #21 tablet 11/08/19 Sulfamethoxazole/Trimethoprim [Bactrim Ds -] 1 tab PO BID 14 Days #28 tablet Review of Systems - Review of Systems Comments:: 12/22/19 10:43 - Review of Systems Able to Perform ROS?: Yes Constitutional: No: Fever, Chills, Loss of Appetite, Night Sweats, Weakness HEENTM: No: Eye Pain, Vision changes, Ear Pain, Throat Pain, Throat Swelling, Mouth Pain, Difficulty Swallowing Respiratory: No: Cough, Shortness of Breath, Wheezing, Sputum Production Cardiac (ROS): No: Chest Pain, Chest Tightness, Palpitations, Irregular Heart Beat, Edema ABD/GI: No: Nausea, Vomiting, Diarrhea; + abdominal pain : No No Vaginal Discharge/Pain; Positive: dysuria, Hematuria, Frequency, Urgency Musculoskeletal: No: Muscle Pain, Back Pain, Joint Pain, Muscle Weakness, Neck Pain Integumentary: No: Lesions, Rash Neurological: No: Headache, Numbness, Tingling, Weakness, Speech Difficulties <Felecia Villarreal - Last Filed: 12/22/19 13:35> *Physical Exam - Vital Signs Last Vital Signs Temp Pulse Resp BP Pulse Ox 97.9 F 98 H 144/69 99 12/22/19 09:29 12/22/19 09:29 12/22/19 09:29 12/22/19 09:29 - Physical Exam 12/22/19 10:44 - Physical Exam General Appearance: Nourished, Appropriately Dressed, No Distress HEENT: EOMI, Normal Voice, No Pharyngeal Erythema, No Muffled/Hoarse voice, No Tonsillar Exudate, No Tonsillar Erythema, No Nasal Congestion, No Rhinorrhea, Hearing Grossly Normal, TMs Normal, No TM Bulging, No TM Dullness, No TM Erythema Neck: Supple, No Lymphadenopathy (R), No Lymphadenopathy (L), No Rigidity, No Decreased range of motion Respiratory/Chest: Lungs Clear, Normal Breath Sounds. No Respiratory Distress, No Accessory Muscle Use Cardiovascular: Regular Rhythm, Regular Rate, S1, S2 Gastrointestinal/Abdominal: Normal Bowel Sounds, Soft. No Guarding, No Rebound , No Rigidity; moderate suprapubic and left lower quadrant abdominal tenderness to palpation. Mild left CVA tenderness to palpation. No rigidity. Musculoskeletal: Normal Inspection. No Decreased Range of Motion Extremity: Normal Capillary Refill, Normal Inspection Integumentary: Normal Color, Dry. No Rash Neurologic: collection specialist II-XII NML intact, Fully Oriented, Alert, Normal Mood/Affect, Normal Response <Felecia Villarreal D - Last Filed: 12/22/19 13:35> - Vital Signs Last Vital Signs Temp Pulse Resp BP Pulse Ox 97.9 F 98 H 144/69 99 12/22/19 09:29 12/22/19 09:29 12/22/19 09:29 12/22/19 09:29 <Brittney Dong - Last Filed: 12/23/19 15:58> ED Treatment Course - LABORATORY CBC & Chemistry Diagram: 12/22/19 11:10 12/22/19 11:10 - RADIOLOGY Radiology Studies Ordered: Category Date Time Status ABDOMEN & PELVIS CT WITH CONTR [CT] Stat CT Scan 12/22/19 10:40 Ordered <Felecia Villarreal D - Last Filed: 12/22/19 13:35> - LABORATORY CBC & Chemistry Diagram: 12/22/19 11:10 12/22/19 11:10 - ADDITIONAL ORDERS Additional order review: Laboratory Results 12/22/19 10:33 Urine Color Yellow Urine Appearance Turbid Urine pH 7.5 Ur Specific [place] 1.005 L Urine Protein Negative Urine Glucose (UA) Negative Urine Ketones Negative Urine Blood 1+ H Urine Nitrite Negative Urine Bilirubin Negative Urine Urobilinogen 0.2 Ur Leukocyte Esterase 2+ H Urine WBC (Auto) 110 Urine Casts (Auto) 69 U Epithel Cells (Auto) 18.1 Urine Bacteria (Auto) 88.3 <Brittney Dong - Last Filed: 12/23/19 15:58> Medical Decision Making - Medical Decision Making 12/22/19 10:45 Assessment: Patient is a 74-year-old female with symptoms of acute cystitis, possibly ascending. Plan: -Saline lock and IV fluids -Labs including urinalysis and urine culture -CT with IV contrast to assess for pyelonephritis -Will reassess 12/22/19 13:35 The patient has been made aware that her urine shows urinary tract infection. Although her CT scan is negative we will treat her as an early pyelonephritis with Bactrim DS x14 days. The patient will follow-up with her primary doctor within 1 to 2 days for repeat evaluation. She understands and agrees with this treatment plan and the patient is stable for discharge. Her first dose of antibiotics was given to her in the ED. <Felecia Villarreal - Last Filed: 12/22/19 13:35> - Medical Decision Making Vital Signs Temp Pulse Resp BP Pulse Ox 97.9 F 98 H 144/69 99 12/22/19 09:29 12/22/19 09:29 12/22/19 09:29 12/22/19 09:29 The patient was seen and evaluated in conjunction with midlevel provider under my direct supervision, ancillary studies were reviewed. I agree with the plan as outlined LEONCIO Villarreal. HPI, workup/dispo as outlined. VS reviewed, wnl. labs and lytes CT scan a/p, neg for acute pathology treat as pyelo bactrim x 14 d course. 12/22/19 11:13 12/23/19 15:58 <Brittney Dong - Last Filed: 12/23/19 15:58> Discharge - Discharge Information Problems reviewed: Yes <Felecia Villarreal - Last Filed: 12/22/19 13:35> <Brittney Dong - Last Filed: 12/23/19 15:58> - Discharge Information Clinical Impression/Diagnosis: Acute cystitis with hematuria Condition: Stable Disposition: HOME - Additional Discharge Information Prescriptions: Sulfamethoxazole/Trimethoprim [Bactrim Ds -] 1 tab PO BID 14 Days #28 tablet - Follow up/Referral Referrals: Brian Jauregui MD [Primary Care Provider] - 2 Days - Patient Discharge Instructions Patient Printed Discharge Instructions: DI for Urinary Tract Infection (UTI) Additional Instructions: Drink plenty of fluids and take the antibiotics as prescribed. Complete the entire course even if you are feeling better. Follow-up with your primary doctor within 1 to 2 days for repeat evaluation. Print Language: TAJIK - Post Discharge Activity
[2019-12-22 10:57] LABS: EPI CELLS 18.1 /HPF (0-5/HPF); HYALINE CASTS 69 /lpf (0-8); PH,URINE 7.5 (5.0-8.0); URINE APPEARANCE TURBID; URINE BACTERIA 88.3 /hpf (NEGATIVE); URINE BILIRUBIN NEGATIVE (NEGATIVE); URINE COLOR YELLOW; URINE GLUCOSE (UA) NEGATIVE (NEGATIVE); URINE KETONE NEGATIVE (NEGATIVE); URINE LEUK ESTERASE 2+ (NEGATIVE); URINE NITRITE NEGATIVE (NEGATIVE); URINE PROTEIN NEGATIVE (NEGATIVE); URINE UROBILINOGEN 0.2 mg/dL (0.2-1.0); URINE WBC 110 /hpf (0-5)
[2019-12-22 11:41] LABS: BASO % 0.2 % (0-2.0); EOS % 1.6 % (0-4.5); HEMATOCRIT 36.2 % (32.4-45.2); HEMOGLOBIN 12.4 GM/dL (10.7-15.3); LYMPH % 17.8 % (8-40); MCH 29.9 pg (25.7-33.7); MCHC 34.1 g/dl (32.0-36.0); MEAN CELL VOLUME 87.6 fl (80-96); MEAN PLT VOLUME 7.9 fl (7.5-11.1); MONO % 7.9 % (3.8-10.2); NEUT % 72.5 % (42.8-82.8); PLATELET COUNT 314 K/MM3 (134-434); RBC 4.13 M/mm3 (3.60-5.2); RDW 13.1 % (11.6-15.6); WHITE BLOOD COUNT 11.1 K/mm3 (4.0-10.0)
[2019-12-22 12:04] LABS: ALBUMIN 3.8 g/dl (3.4-5.0); BILIRUBIN,TOTAL 0.5 mg/dL (0.2-1); BLOOD UREA NITROGEN 14.8 mg/dL (7-18); CALCIUM 9.3 mg/dL (8.5-10.1); POTASSIUM 4.7 mmol/L (3.5-5.1); TOT PROT 7.8 g/dl (6.4-8.2)
[2019-12-22] MEDS ORDERED: SULFAMETHOXAZOLE/TRIMETHOPRIM 800MG/160MG D.S. TABLET PO ONE (13:34)
[2019-12-22] MEDS ORDERED: SULFAMETHOXAZOLE/TRIMETHOPRIM 800MG/160MG D.S. TABLET ONE (13:43)
[2019-12-22 15:24] LABS: URINE CRYSTALS NEGATIVE /hpf; URINE RBC 7.3 /hpf (0-4)
== END 2019-12-22 13:52 | disposition home or self-care (01) ==
LOC: JER 09:13
PROC: 3E0337Z Introduction of Electrolytic and Water Balance Substance into Peripheral Vein, Percutaneous Approach (ICD-10-PCS; principal; 2019-12-22)
DX: N30.01 Acute cystitis with hematuria (principal); Z91.018 Allergy to other foods; Z88.0 Allergy status to penicillin
CPT/HCPCS: 36415; 74176-TC; 80053; 81003; 85025; 87077; 87086; 96360; 99284-25; J7030

== ENCOUNTER 2021-02-27 09:05 | Emergency (ER) | payer MEDICARE, OTHER ==
[2021-02-27 09:13] VITALS: BMI 28.5
[2021-02-27] MEDS ORDERED: ONDANSETRON 4 MG TABLET PO PRN (10:43)
[2021-02-27] MEDS ORDERED: MAG HYDROX/AL HYDROX/SIMETH 30 ML UNIT-DOSE CUP PO ONE (10:44)
[2021-02-27] MEDS ORDERED: SODIUM CHLORIDE 0.9% 500 ML INFUS.BAG IV ONE (10:44)
[2021-02-27] MEDS ORDERED: FAMOTIDINE 20 MG/50 ML IVPB 20 MG/50 ML MG IVPB ONE ×2 (10:44→12:00)
[2021-02-27] MEDS ORDERED: ONDANSETRON *ODT* 4 MG TABLET ONE (11:23)
[2021-02-27] MEDS ORDERED: MAG HYDROX/AL HYDROX/SIMETH 30 ML UNIT-DOSE CUP ONE (11:23)
[2021-02-27 11:51] LABS: EPI CELLS 8 /uL (0-25.1); HYALINE CASTS 0 /uL (0-3.1); URINE APPEARANCE CLEAR; URINE BACTERIA 129 /uL (0-1359); URINE BILIRUBIN NEGATIVE (NEGATIVE); URINE COLOR YELLOW; URINE GLUCOSE (UA) NEGATIVE (NEGATIVE); URINE KETONE NEGATIVE (NEGATIVE); URINE LEUK ESTERASE 1+ (NEGATIVE); URINE NITRITE NEGATIVE (NEGATIVE); URINE PROTEIN NEGATIVE (NEGATIVE); URINE RBC 4 /uL (0-23.9); URINE UROBILINOGEN 0.2 mg/dL (0.2-1.0); URINE WBC 6 /uL (0-25.8)
[2021-02-27 12:01] LABS: CALCIUM 9.9 mg/dL (8.5-10.1)
[2021-02-27 12:02] LABS: ALBUMIN 4.3 g/dl (3.4-5.0); BLOOD UREA NITROGEN 10.1 mg/dL (7-18)
[2021-02-27 12:05] LABS: CREATININE 0.7 mg/dL (0.55-1.3)
[2021-02-27 12:07] LABS: BILIRUBIN,TOTAL 0.6 mg/dL (0.2-1); TOT PROT 8.4 g/dl (6.4-8.2)
[2021-02-27 12:58] LABS: BASO % 0.5 % (0-2.0); EOS % 5.1 % (0-4.5); HEMATOCRIT 37.2 % (32.4-45.2); HEMOGLOBIN 12.6 GM/dL (10.7-15.3); LYMPH % 30.2 % (8-40); MCH 29.9 pg (25.7-33.7); MCHC 33.9 g/dl (32.0-36.0); MEAN CELL VOLUME 88.2 fl (80-96); MEAN PLT VOLUME 8.2 fl (7.5-11.1); MONO % 6.3 % (3.8-10.2); NEUT % 57.9 % (42.8-82.8); PLATELET COUNT 339 K/MM3 (134-434); RBC 4.22 M/mm3 (3.60-5.2); WHITE BLOOD COUNT 5.6 K/mm3 (4.0-10.0)
[2021-02-27 14:56] VITALS: BP 179/77; PULSE 80; TEMP 97.1
== END 2021-02-27 15:56 | disposition home or self-care (01) ==
LOC: JER 09:05
PROC: 3E033GC Introduction of Other Therapeutic Substance into Peripheral Vein, Percutaneous Approach (ICD-10-PCS; principal; 2021-02-27)
DX: R11.0 Nausea (principal); R10.84 Generalized abdominal pain
CPT/HCPCS: 36415; 74176-TC; 80053; 81003; 85025; 87086; 96374; 99285-25; Q9967

== ENCOUNTER 2021-06-20 09:47 | Emergency (ER) | payer MEDICARE, OTHER ==
[2021-06-20 09:58] VITALS: BP 148/65; PULSE 74; TEMP 97; BMI 25.8
[2021-06-20] MEDS ORDERED: ONDANSETRON *ODT* 4 MG TABLET SL ONE (10:52)
[2021-06-20] MEDS ORDERED: ACETAMINOPHEN/CAFFEINE/BUTALBITAL 1 TAB PO ONE (10:53)
[2021-06-20] MEDS ORDERED: ACETAMINOPHEN/CAFFEINE/BUTALBITAL 1 TAB ONE (11:36)
[2021-06-20] MEDS ORDERED: ONDANSETRON *ODT* 4 MG TABLET ONE (11:36)
== END 2021-06-20 12:30 | disposition home or self-care (01) ==
LOC: JER 09:47
DX: G43.909 Migraine, unspecified, not intractable, without status migrainosus (principal)
CPT/HCPCS: 70450-TC; 99284-25; C9803; Q0162; U0003; U0005

== ENCOUNTER 2022-01-08 09:21 | Emergency (ER) | payer MEDICARE, OTHER ==
[2022-01-08 09:39] VITALS: TEMP 98.4; BMI 25.9
[2022-01-08] MEDS ORDERED: ACETAMINOPHEN 325 MG TABLET (FP) PO ONE (10:28)
[2022-01-08] MEDS ORDERED: ACETAMINOPHEN 325 MG TABLET (FP) ONE (11:11)
[2022-01-08 11:16] LABS: BASO % 0.4 % (0-2.0); EOS % 4.2 % (0-4.5); HEMOGLOBIN 12.2 GM/dL (10.7-15.3); MCH 30.1 pg (25.7-33.7); MCHC 34.9 g/dl (32.0-36.0); MEAN CELL VOLUME 86.3 fl (80-96); MEAN PLT VOLUME 7.6 fl (7.5-11.1); NEUT % 56.4 % (42.8-82.8); PLATELET COUNT 309 10^3/uL (134-434); RBC 4.06 M/mm3 (3.60-5.2); RDW 12.9 % (11.6-15.6)
[2022-01-08 11:37] LABS: CALCIUM 9.4 mg/dL (8.5-10.1)
[2022-01-08 11:38] LABS: ALBUMIN 4.2 g/dl (3.4-5.0); BLOOD UREA NITROGEN 14.3 mg/dL (7-18)
[2022-01-08 11:41] LABS: CREATININE 0.8 mg/dL (0.55-1.3)
[2022-01-08 11:42] LABS: BILIRUBIN,TOTAL 0.6 mg/dL (0.2-1)
[2022-01-08 14:27] VITALS: BP 125/58; PULSE 68
== END 2022-01-08 14:30 | disposition home or self-care (01) ==
LOC: JER 09:21
DX: F41.9 Anxiety disorder, unspecified (principal); R07.89 Other chest pain
CPT/HCPCS: 36415; 71046-TC-FY; 80053; 84484; 85025; 93005; 93010; 99285-25

== ENCOUNTER 2022-03-20 11:51 | Observation (INO) | payer MEDICARE, OTHER ==
[2022-03-20] MEDS ORDERED: ACETAMINOPHEN 500 MG TABLET (FP) PO ONE (13:10)
[2022-03-20 13:12] LABS: BASO % 0.5 % (0-2.0); EOS % 4.2 % (0-4.5); HEMATOCRIT 36.3 % (32.4-45.2); HEMOGLOBIN 12.6 GM/dL (10.7-15.3); LYMPH % 30.7 % (8-40); MCH 29.9 pg (25.7-33.7); MCHC 34.8 g/dl (32.0-36.0); MEAN CELL VOLUME 85.8 fl (80-96); MEAN PLT VOLUME 7.2 fl (7.5-11.1); MONO % 6.3 % (3.8-10.2); NEUT % 58.3 % (42.8-82.8); PLATELET COUNT 327 10^3/uL (134-434); RBC 4.22 M/mm3 (3.60-5.2); RDW 12.9 % (11.6-15.6); WHITE BLOOD COUNT 6.4 K/mm3 (4.0-10.0)
[2022-03-20] MEDS ORDERED: ACETAMINOPHEN 500 MG TABLET (FP) ONE (13:26)
[2022-03-20 13:38] LABS: ALBUMIN 4.2 g/dl (3.4-5.0); BLOOD UREA NITROGEN 16.9 mg/dL (7-18); CALCIUM 9.6 mg/dL (8.5-10.1)
[2022-03-20 13:41] LABS: CREATININE 0.8 mg/dL (0.55-1.3)
[2022-03-20 13:43] LABS: BILIRUBIN,TOTAL 0.5 mg/dL (0.2-1)
[2022-03-20 13:44] LABS: TOT PROT 8.2 g/dl (6.4-8.2)
[2022-03-20] MEDS ORDERED: FAMOTIDINE 20 MG TABLET PO ONE (18:00)
[2022-03-20] MEDS ORDERED: FAMOTIDINE 20 MG TABLET ONE (18:06)
[2022-03-20 18:39] LABS: EPI CELLS 3 /uL (0-25.1); HYALINE CASTS 0 /uL (0-3.1); URINE APPEARANCE CLEAR; URINE BACTERIA 17 /uL (0-1359); URINE BILIRUBIN NEGATIVE (NEGATIVE); URINE COLOR YELLOW; URINE GLUCOSE (UA) NEGATIVE (NEGATIVE); URINE KETONE NEGATIVE (NEGATIVE); URINE LEUK ESTERASE TRACE (NEGATIVE); URINE NITRITE NEGATIVE (NEGATIVE); URINE PROTEIN NEGATIVE (NEGATIVE); URINE RBC 4 /uL (0-23.9); URINE UROBILINOGEN 0.2 mg/dL (0.2-1.0); URINE WBC 7 /uL (0-25.8)
[2022-03-20] MEDS ORDERED: CYCLOBENZAPRINE HCL 5 MG TABLET ONE (21:17)
[2022-03-20] MEDS ORDERED: MENTHOL/PHENOL 1 EACH UD MM PRN (21:34)
[2022-03-20] MEDS ORDERED: CYCLOBENZAPRINE HCL 5 MG TABLET PO ONE (22:00)
[2022-03-20] MEDS: INSULIN SLIDING SCALE (NOVOLOG) 1 VIAL SQ SCH (22:07)
[2022-03-21 04:19] VITALS: BMI 26.6
[2022-03-21] MEDS ORDERED: IBUPROFEN 800 MG/8 ML IJ IVPB ONE (05:41)
[2022-03-21] MEDS ORDERED: SPIRONOLACTONE 25 MG TABLET PO SCH ×2 (05:43→10:00)
[2022-03-21] MEDS: SPIRONOLACTONE 25 MG TABLET PO SCH ×2 (06:33→10:15)
[2022-03-21] MEDS: LOSARTAN POTASSIUM 50 MG TABLET PO SCH ×2 (06:33→10:17)
[2022-03-21] MEDS: INSULIN SLIDING SCALE (NOVOLOG) 1 VIAL SQ SCH ×4 (06:40→21:45)
[2022-03-21] MEDS ORDERED: LOSARTAN POTASSIUM 50 MG TABLET PO SCH (10:00)
[2022-03-21] MEDS: ENOXAPARIN NA (PORCINE) 40 MG/0.4 ML DISP.SYRIN SQ SCH (10:15)
[2022-03-21] MEDS: ISOSORBIDE MONONITRATE 60 MG TAB.SR.24H (FP) PO SCH (11:32)
[2022-03-21] MEDS: EZETIMIBE 10 MG TABLET (FP) PO SCH (11:32)
[2022-03-21] MEDS: ASPIRIN 81 MG CHEWABLE TABLETS PO SCH (11:32)
[2022-03-21] MEDS ORDERED: ATORVASTATIN CA 80 MG TABLET (FP) PO SCH (22:00)
[2022-03-22] MEDS: INSULIN SLIDING SCALE (NOVOLOG) 1 VIAL SQ SCH ×2 (06:17→12:31)
[2022-03-22 09:16] VITALS: PULSE 74
[2022-03-22] MEDS ORDERED: PANTOPRAZOLE 40 MG TABLET PO SCH (10:00)
[2022-03-22] MEDS ORDERED: REGADENOSON 0.4 MG/5 ML PRE-FILLED SYRINGE IVPUSH ONE ×2 (10:45→11:15)
[2022-03-22] MEDS: SPIRONOLACTONE 25 MG TABLET PO SCH (12:24)
[2022-03-22] MEDS: EZETIMIBE 10 MG TABLET (FP) PO SCH (12:24)
[2022-03-22] MEDS: LOSARTAN POTASSIUM 50 MG TABLET PO SCH (12:24)
[2022-03-22] MEDS: ISOSORBIDE MONONITRATE 60 MG TAB.SR.24H (FP) PO SCH (12:24)
[2022-03-22] MEDS: ASPIRIN 81 MG CHEWABLE TABLETS PO SCH (12:24)
[2022-03-22] MEDS: ENOXAPARIN NA (PORCINE) 40 MG/0.4 ML DISP.SYRIN SQ SCH (12:25)
[2022-03-22 14:37] VITALS: BP 123/66; TEMP 98.3
== END 2022-03-22 17:44 | disposition home or self-care (01) ==
LOC: JER 11:51 → JERBED 15:22 → J4S 03-21 03:44
PROVIDERS: ADMIT Internal Medicine; ATTEND Nurse Practitioner Acute Care
PROC: 3E023GC Introduction of Other Therapeutic Substance into Muscle, Percutaneous Approach (ICD-10-PCS; principal; 2022-03-20)
PROC: 3E033GC Introduction of Other Therapeutic Substance into Peripheral Vein, Percutaneous Approach (ICD-10-PCS; 2022-03-20)
PROC: 3E033GC Introduction of Other Therapeutic Substance into Peripheral Vein, Percutaneous Approach (ICD-10-PCS; 2022-03-20)
DX: I10 Essential (primary) hypertension (principal); K21.9 Gastro-esophageal reflux disease without esophagitis; R07.9 Chest pain, unspecified; E11.9 Type 2 diabetes mellitus without complications; G25.81 Restless legs syndrome; K29.70 Gastritis, unspecified, without bleeding; J45.909 Unspecified asthma, uncomplicated; K76.0 Fatty (change of) liver, not elsewhere classified; E78.5 Hyperlipidemia, unspecified; F41.8 Other specified anxiety disorders; M48.00 Spinal stenosis, site unspecified; R42 Dizziness and giddiness; G47.00 Insomnia, unspecified; Z29.8 Encounter for other specified prophylactic measures; F41.9 Anxiety disorder, unspecified; Z88.0 Allergy status to penicillin; Z91.018 Allergy to other foods
CPT/HCPCS: 36415; 71045-TC-FY; 78452-TC; 80053; 81003; 82962; 83690; 84484; 85025; 93005; 93010; 93017; 96372; 96374; 96375; 99285-25; A9502; C9803-CS; G0378; J2785; U0003; U0005

== ENCOUNTER 2022-06-10 11:02 | Observation (INO) | payer MEDICARE, OTHER ==
[2022-06-10 11:29] VITALS: BMI 29.2
[2022-06-10 15:29] LABS: BASO % 0.3 % (0-2.0); EOS % 3.3 % (0-4.5); HEMATOCRIT 37.8 % (32.4-45.2); HEMOGLOBIN 12.6 GM/dL (10.7-15.3); LYMPH % 28.8 % (8-40); MCH 29.1 pg (25.7-33.7); MCHC 33.3 g/dl (32.0-36.0); MEAN CELL VOLUME 87.2 fl (80-96); MEAN PLT VOLUME 7.4 fl (7.5-11.1); MONO % 5.6 % (3.8-10.2); PLATELET COUNT 349 10^3/uL (134-434); RBC 4.33 M/mm3 (3.60-5.2); RDW 13.4 % (11.6-15.6); WHITE BLOOD COUNT 6.9 K/mm3 (4.0-10.0)
[2022-06-10 15:56] LABS: INR 1.03 (0.83-1.09); PROTHROMBIN TIME (PATIENT) 11.8 SEC (9.7-13.0)
[2022-06-10 15:59] LABS: ACTIVATED PTT 31.7 SECONDS (25.2-36.5)
[2022-06-10 16:20] LABS: ALBUMIN 4.3 g/dl (3.4-5.0); BLOOD UREA NITROGEN 8.1 mg/dL (7-18); CALCIUM 9.7 mg/dL (8.5-10.1)
[2022-06-10 16:24] LABS: CREATININE 0.7 mg/dL (0.55-1.3)
[2022-06-10 16:25] LABS: BILIRUBIN,TOTAL 0.5 mg/dL (0.2-1); TOT PROT 8.2 g/dl (6.4-8.2)
[2022-06-11] MEDS ORDERED: LIDOCAINE 5% TOPICAL PATCH TP ONE (00:56)
[2022-06-11] MEDS ORDERED: ACETAMINOPHEN 1000 MG/100 ML BAG IVPB PRN (00:57)
[2022-06-11] MEDS ORDERED: LIDOCAINE 5% TOPICAL PATCH ONE (03:23)
[2022-06-11] MEDS: INSULIN SLIDING SCALE (NOVOLOG) 1 VIAL SQ SCH ×2 (05:39→11:13)
[2022-06-11 06:18] VITALS: TEMP 97.4
[2022-06-11] MEDS ORDERED: SIMETHICONE 80 MG TAB.CHEW (FP) PO PRN (08:39)
[2022-06-11] MEDS ORDERED: PANTOPRAZOLE 40 MG TABLET PO ONE (08:56)
[2022-06-11] MEDS ORDERED: RANOLAZINE E.R. 500 MG TABLET (FP) ONE (08:57)
[2022-06-11] MEDS ORDERED: ONDANSETRON *ODT* 4 MG TABLET ONE (08:57)
[2022-06-11] MEDS ORDERED: SPIRONOLACTONE 25 MG TABLET ONE (08:57)
[2022-06-11] MEDS ORDERED: ENOXAPARIN NA (PORCINE) 40 MG/0.4 ML DISP.SYRIN SQ ONE (08:58)
[2022-06-11] MEDS ORDERED: ONDANSETRON 4 MG TABLET PO SCH (10:00)
[2022-06-11] MEDS ORDERED: ENOXAPARIN NA (PORCINE) 40 MG/0.4 ML DISP.SYRIN SQ SCH (10:00)
[2022-06-11] MEDS ORDERED: EZETIMIBE 10 MG TABLET (FP) PO SCH (10:00)
[2022-06-11] MEDS ORDERED: RANOLAZINE E.R. 500 MG TABLET (FP) PO SCH (10:00)
[2022-06-11] MEDS ORDERED: SPIRONOLACTONE 25 MG TABLET PO SCH (10:00)
[2022-06-11] MEDS ORDERED: PANTOPRAZOLE 40 MG TABLET PO SCH (10:00)
[2022-06-11 11:16] VITALS: BP 167/96; PULSE 72; RESP 18
[2022-06-11] MEDS ORDERED: LIDOCAINE PATCH REMOVAL MC SCH (22:00)
== END 2022-06-11 12:25 | disposition home or self-care (01) ==
LOC: JER 11:02 → UNDOADMOB 17:07 → JERBED 17:07 → INTOOBSV 17:07 → OBSVTOIN 17:07 → JERBED 06-11 07:44
PROVIDERS: ADMIT Hospitalist; ATTEND Nurse Practitioner Acute Care
DX: R07.89 Other chest pain (principal); F41.8 Other specified anxiety disorders; K21.9 Gastro-esophageal reflux disease without esophagitis; I10 Essential (primary) hypertension; E78.5 Hyperlipidemia, unspecified; E11.9 Type 2 diabetes mellitus without complications; R60.0 Localized edema; G89.29 Other chronic pain; Z29.8 Encounter for other specified prophylactic measures; Z88.0 Allergy status to penicillin; Z91.018 Allergy to other foods
CPT/HCPCS: 36415; 71046-TC-FY; 80053; 82962; 83880; 84484; 85025; 85610; 85730; 93005; 93010; 99285-25; C9803-CS; G0378; U0003; U0005

== ENCOUNTER 2022-10-22 08:58 | Emergency (ER) | payer MEDICARE, OTHER ==
[2022-10-22 09:11] VITALS: BMI 25.0
[2022-10-22] MEDS ORDERED: ASPIRIN 325 MG ENTERIC COATED TABLET (FP) PO ONE (10:14)
[2022-10-22 10:19] LABS: BASO % 0.4 % (0-2.0); EOS % 5.3 % (0-4.5); HEMATOCRIT 35.9 % (32.4-45.2); HEMOGLOBIN 12.1 GM/dL (10.7-15.3); LYMPH % 24.9 % (8-40); MCH 29.5 pg (25.7-33.7); MCHC 33.8 g/dl (32.0-36.0); MEAN CELL VOLUME 87.2 fl (80-96); MEAN PLT VOLUME 7.6 fl (7.5-11.1); MONO % 6.5 % (3.8-10.2); NEUT % 62.9 % (42.8-82.8); PLATELET COUNT 343 10^3/uL (134-434); RBC 4.11 M/mm3 (3.60-5.2); RDW 13.2 % (11.6-15.6); WHITE BLOOD COUNT 7.2 K/mm3 (4.0-10.0)
[2022-10-22] MEDS ORDERED: ASPIRIN 325 MG ENTERIC COATED TABLET (FP) ONE (10:25)
[2022-10-22 10:26] LABS: INR 1.06 (0.83-1.09); PROTHROMBIN TIME (PATIENT) 12.2 SEC (9.7-13.0)
[2022-10-22 10:28] LABS: ACTIVATED PTT 30.2 SECONDS (25.2-36.5)
[2022-10-22 10:51] LABS: CALCIUM 9.7 mg/dL (8.5-10.1)
[2022-10-22 10:52] LABS: BLOOD UREA NITROGEN 13.3 mg/dL (7-18)
[2022-10-22 10:55] LABS: CREATININE 0.9 mg/dL (0.55-1.3)
[2022-10-22 10:56] LABS: TOT PROT 7.9 g/dl (6.4-8.2)
[2022-10-22 10:57] LABS: BILIRUBIN,TOTAL 0.6 mg/dL (0.2-1)
[2022-10-22 11:18] LABS: EPI CELLS >36 /uL (0-25.1); HYALINE CASTS 1 /uL (0-3.1); PH,URINE 7.5 (5.0-8.0); URINE APPEARANCE CLEAR; URINE BACTERIA 254 /uL (0-1359); URINE BILIRUBIN NEGATIVE (NEGATIVE); URINE COLOR YELLOW; URINE GLUCOSE (UA) NEGATIVE (NEGATIVE); URINE KETONE NEGATIVE (NEGATIVE); URINE LEUK ESTERASE 2+ (NEGATIVE); URINE NITRITE NEGATIVE (NEGATIVE); URINE PROTEIN NEGATIVE (NEGATIVE); URINE RBC 5 /uL (0-23.9); URINE UROBILINOGEN 0.2 mg/dL (0.2-1.0); URINE WBC 50 /uL (0-25.8)
[2022-10-22 12:09] VITALS: PULSE 63
[2022-10-22] MEDS ORDERED: ACETAMINOPHEN 500 MG TABLET (FP) PO ONE (13:06)
[2022-10-22 13:22] VITALS: BP 135/86; RESP 14; TEMP 98.3
== END 2022-10-22 13:36 | disposition home or self-care (01) ==
LOC: JER 08:58
DX: R07.9 Chest pain, unspecified (principal)
CPT/HCPCS: 0241U-QW; 36415; 71046-TC-FY; 80053; 81003; 83690; 83880; 84484; 85025; 85610; 85730; 87077; 87086; 93005; 93010; 99285-25

== ENCOUNTER 2023-03-03 09:10 | Emergency (ER) | payer MEDICARE, OTHER ==
[2023-03-03 09:51] VITALS: BMI 22.6
[2023-03-03] MEDS ORDERED: ACETAMINOPHEN 1000 MG/100 ML BAG IVPB ONE (09:58)
[2023-03-03] MEDS ORDERED: ACETAMINOPHEN INJECTION 100 ML IVPB ONE (10:23)
[2023-03-03 10:33] LABS: BASO % 0.3 % (0-2.0); EOS % 6.5 % (0-4.5); HEMATOCRIT 31.7 % (32.4-45.2); HEMOGLOBIN 11.1 GM/dL (10.7-15.3); LYMPH % 26.2 % (8-40); MCH 29.6 pg (25.7-33.7); MCHC 34.9 g/dl (32.0-36.0); MEAN CELL VOLUME 84.7 fl (80-96); MEAN PLT VOLUME 7.7 fl (7.5-11.1); MONO % 5.6 % (3.8-10.2); NEUT % 61.4 % (42.8-82.8); PLATELET COUNT 273 10^3/uL (134-434); RBC 3.75 M/mm3 (3.60-5.2); RDW 13.1 % (11.6-15.6); WHITE BLOOD COUNT 7.2 K/mm3 (4.0-10.0)
[2023-03-03 10:59] LABS: ALBUMIN 3.6 g/dl (3.4-5.0); BLOOD UREA NITROGEN 14.6 mg/dL (7-18); MAGNESIUM 2.4 mg/dL (1.8-2.4)
[2023-03-03 11:02] LABS: CREATININE 0.9 mg/dL (0.55-1.3); PHOSPHOROUS 3.8 mg/dL (2.5-4.9)
[2023-03-03 11:03] LABS: BILIRUBIN,TOTAL 0.6 mg/dL (0.2-1)
[2023-03-03 11:04] LABS: TOT PROT 7.2 g/dl (6.4-8.2)
[2023-03-03 11:10] LABS: N-TERMINAL BNP 223.9 pg/ml (5-450)
[2023-03-03] MEDS ORDERED: IBUPROFEN 400 MG TABLET (FP) PO ONE ×2 (12:35→12:56)
[2023-03-03 12:55] VITALS: BP 138/66; PULSE 78; RESP 17; TEMP 97.8
== END 2023-03-03 13:11 | disposition home or self-care (01) ==
LOC: JERFT 09:10
PROC: 3E033NZ Introduction of Analgesics, Hypnotics, Sedatives into Peripheral Vein, Percutaneous Approach (ICD-10-PCS; principal; 2023-03-03)
DX: R07.9 Chest pain, unspecified (principal); R11.0 Nausea; R42 Dizziness and giddiness
CPT/HCPCS: 36415; 71045-TC-FY; 80053; 82962; 83690; 83735; 83880; 84100; 84484; 85025; 93005; 93010; 99285-25

== ENCOUNTER 2023-07-29 14:53 | Observation (INO) | payer MEDICARE, OTHER ==
[2023-07-29] MEDS ORDERED: ALBUTEROL SO4 2.5/IPRATROPIUM 0.5 INH SOL 3 ML VIAL.NEB. NEB ONE ×2 (15:55→16:14)
[2023-07-29 16:04] LABS: BASO % 0.4 % (0-2.0); EOS % 5.2 % (0-4.5); HEMATOCRIT 32.9 % (32.4-45.2); HEMOGLOBIN 11.6 GM/dL (10.7-15.3); LYMPH % 31.1 % (8-40); MCH 29.7 pg (25.7-33.7); MCHC 35.2 g/dl (32.0-36.0); MEAN CELL VOLUME 84.5 fl (80-96); MEAN PLT VOLUME 7.7 fl (7.5-11.1); MONO % 7.5 % (3.8-10.2); NEUT % 55.8 % (42.8-82.8); PLATELET COUNT 314 10^3/uL (134-434); RBC 3.89 M/mm3 (3.60-5.2); RDW 13.5 % (11.6-15.6); WHITE BLOOD COUNT 6.6 K/mm3 (4.0-10.0)
[2023-07-29] MEDS: ALBUTEROL SO4 2.5/IPRATROPIUM 0.5 INH SOL 3 ML VIAL.NEB. NEB SCH ×4 (16:07→16:51)
[2023-07-29 16:32] LABS: EPI CELLS >36 /uL (0-25.1); HYALINE CASTS 1 /uL (0-3.1); PH,URINE >= 9.0 (5.0-8.0); URINE APPEARANCE CLOUDY; URINE BACTERIA 587 /uL (0-1359); URINE BILIRUBIN NEGATIVE (NEGATIVE); URINE COLOR YELLOW; URINE GLUCOSE (UA) NEGATIVE (NEGATIVE); URINE KETONE NEGATIVE (NEGATIVE); URINE LEUK ESTERASE 3+ (NEGATIVE); URINE NITRITE NEGATIVE (NEGATIVE); URINE PROTEIN NEGATIVE (NEGATIVE); URINE RBC 20 /uL (0-23.9); URINE UROBILINOGEN 0.2 mg/dL (0.2-1.0); URINE WBC 61 /uL (0-25.8)
[2023-07-29 16:34] LABS: POTASSIUM 4.6 mmol/L (3.5-5.1)
[2023-07-29 16:36] LABS: CALCIUM 9.6 mg/dL (8.5-10.1)
[2023-07-29 16:37] LABS: ALBUMIN 4.1 g/dl (3.4-5.0)
[2023-07-29 16:40] LABS: CREATININE 1.1 mg/dL (0.55-1.3)
[2023-07-29 16:41] LABS: BILIRUBIN,TOTAL 0.5 mg/dL (0.2-1); TOT PROT 8.1 g/dl (6.4-8.2)
[2023-07-29] MEDS ORDERED: CEFTRIAXONE 1 GM/50 ML BAG ONE (17:30)
[2023-07-29 23:27] VITALS: BMI 23.8
[2023-07-30] MEDS: ALBUTEROL SO4 2.5/IPRATROPIUM 0.5 INH SOL 3 ML VIAL.NEB. NEB SCH ×3 (03:25→14:08)
[2023-07-30] MEDS: INSULIN SLIDING SCALE (NOVOLOG) 1 VIAL SQ SCH ×2 (06:25→11:13)
[2023-07-30 07:23] LABS: HEMATOCRIT 32.7 % (32.4-45.2); MCH 29.4 pg (25.7-33.7); MCHC 33.7 g/dl (32.0-36.0); MEAN CELL VOLUME 87.3 fl (80-96); MEAN PLT VOLUME 8.1 fl (7.5-11.1); PLATELET COUNT 296 10^3/uL (134-434); RBC 3.74 M/mm3 (3.60-5.2); RDW 13.6 % (11.6-15.6); WHITE BLOOD COUNT 6.7 K/mm3 (4.0-10.0)
[2023-07-30 07:38] LABS: POTASSIUM 4.4 mmol/L (3.5-5.1)
[2023-07-30 07:44] LABS: ALBUMIN 3.8 g/dl (3.4-5.0); CALCIUM 9.1 mg/dL (8.5-10.1)
[2023-07-30 07:45] LABS: BLOOD UREA NITROGEN 15.6 mg/dL (7-18); MAGNESIUM 2.3 mg/dL (1.8-2.4)
[2023-07-30 07:47] LABS: PHOSPHOROUS 4.2 mg/dL (2.5-4.9)
[2023-07-30 07:48] LABS: CREATININE 0.9 mg/dL (0.55-1.3)
[2023-07-30 07:49] LABS: BILIRUBIN,TOTAL 0.4 mg/dL (0.2-1); TOT PROT 7.4 g/dl (6.4-8.2)
[2023-07-30] MEDS ORDERED: methylPREDNISolone NA SUCC 40 MG/1 ML VIAL IVPUSH SCH (10:00)
[2023-07-30] MEDS ORDERED: dilTIAZem HCL 60 MG TABLET PO SCH (10:00)
[2023-07-30] MEDS ORDERED: ALBUTEROL SO4 HFA INHALER IH SCH (10:00)
[2023-07-30] MEDS ORDERED: ENOXAPARIN NA (PORCINE) 40 MG/0.4 ML DISP.SYRIN SQ SCH (10:00)
[2023-07-30] MEDS ORDERED: AZTREONAM 1 GM VIAL (RESTRICTED TO ID) IVPB SCH (10:00)
[2023-07-30] MEDS ORDERED: SPIRONOLACTONE 25 MG TABLET PO SCH (10:00)
[2023-07-30] MEDS: BUDESONIDE/FORMETEROL FUMARATE 160/4.5 mcg INHALER IH SCH ×2 (10:32→10:42)
[2023-07-30 15:59] VITALS: BP 128/67; PULSE 86; RESP 20; TEMP 99
[2023-07-30] MEDS ORDERED: ROSUVASTATIN CA 20 MG TABLET PO SCH (22:00)
[2023-07-30] MEDS ORDERED: LOSARTAN POTASSIUM 50 MG TABLET PO SCH (22:00)
== END 2023-07-30 17:42 | disposition home or self-care (01) ==
LOC: JER 14:53 → JERBED 19:49 → J4W 21:58
PROVIDERS: ADMIT Internal Medicine; ATTEND Internal Medicine
PROC: 3E0F7GC Introduction of Other Therapeutic Substance into Respiratory Tract, Via Natural or Artificial Opening (ICD-10-PCS; principal; 2023-07-29)
PROC: 3E03329 Introduction of Other Anti-infective into Peripheral Vein, Percutaneous Approach (ICD-10-PCS; 2023-07-29)
PROC: 3E023GC Introduction of Other Therapeutic Substance into Muscle, Percutaneous Approach (ICD-10-PCS; 2023-07-29)
PROC: 3E033GC Introduction of Other Therapeutic Substance into Peripheral Vein, Percutaneous Approach (ICD-10-PCS; 2023-07-29)
DX: J45.901 Unspecified asthma with (acute) exacerbation (principal); R42 Dizziness and giddiness; I25.10 Atherosclerotic heart disease of native coronary artery without angina pectoris; I11.9 Hypertensive heart disease without heart failure; E11.9 Type 2 diabetes mellitus without complications; J98.4 Other disorders of lung; J42 Unspecified chronic bronchitis; N81.10 Cystocele, unspecified; K21.9 Gastro-esophageal reflux disease without esophagitis; F32.A Depression, unspecified; H54.40 Blindness, one eye, unspecified eye; Z86.73 Personal history of transient ischemic attack (TIA), and cerebral infarction without residual deficits; N39.0 Urinary tract infection, site not specified; Z88.0 Allergy status to penicillin; Z91.018 Allergy to other foods
CPT/HCPCS: 0241U-QW; 36415; 70450-TC; 71045-TC-FY; 80053; 81003; 82962; 83735; 84100; 84484; 85025; 85027; 87086; 93005; 93010; 94640; 96372; 96374; 96375; 97116-GP; 97161-GP; 99285-25; G0378

== ENCOUNTER 2023-11-20 10:16 | Emergency (ER) | payer MEDICARE, OTHER ==
[2023-11-20 10:25] VITALS: BP 159/65; PULSE 86; RESP 18; TEMP 98.4; BMI 23.3
[2023-11-20] MEDS ORDERED: LACTATED RINGERS SOLUTION 1000 ML INFUS.BAG IV ONE (11:32)
[2023-11-20 11:56] LABS: BASO % 0.4 % (0-2.0); EOS % 4.4 % (0-4.5); HEMOGLOBIN 11.6 GM/dL (10.7-15.3); LYMPH % 30.8 % (8-40); MCH 29.4 pg (25.7-33.7); MCHC 34.1 g/dl (32.0-36.0); MEAN CELL VOLUME 86.2 fl (80-96); MEAN PLT VOLUME 6.9 fl (7.5-11.1); MONO % 6.9 % (3.8-10.2); NEUT % 57.5 % (42.8-82.8); PLATELET COUNT 316 10^3/uL (134-434); RBC 3.95 M/mm3 (3.60-5.2); RDW 13.2 % (11.6-15.6); WHITE BLOOD COUNT 5.3 K/mm3 (4.0-10.0)
[2023-11-20 12:14] LABS: POTASSIUM 4.4 mmol/L (3.5-5.1)
[2023-11-20 12:16] LABS: ALBUMIN 3.8 g/dl (3.4-5.0); BLOOD UREA NITROGEN 11.6 mg/dL (7-18); CALCIUM 9.1 mg/dL (8.5-10.1); MAGNESIUM 2.5 mg/dL (1.8-2.4)
[2023-11-20 12:21] LABS: BILIRUBIN,TOTAL 0.5 mg/dL (0.2-1); TOT PROT 7.5 g/dl (6.4-8.2)
== END 2023-11-20 13:13 | disposition home or self-care (01) ==
LOC: JER 10:16
DX: R20.2 Paresthesia of skin (principal); R20.0 Anesthesia of skin
CPT/HCPCS: 36415; 80053; 83735; 85025; 99283-25

== ENCOUNTER 2024-01-29 15:03 | Emergency (ER) | payer MEDICARE, OTHER ==
[2024-01-29 15:13] VITALS: RESP 18; BMI 22.6
[2024-01-29 16:16] LABS: BASO % 0.4 % (0-2.0); EOS % 2.3 % (0-4.5); HEMATOCRIT 36.7 % (32.4-45.2); HEMOGLOBIN 12.4 GM/dL (10.7-15.3); LYMPH % 33.9 % (8-40); MCH 29.2 pg (25.7-33.7); MCHC 33.7 g/dl (32.0-36.0); MEAN CELL VOLUME 86.9 fl (80-96); MEAN PLT VOLUME 7.2 fl (7.5-11.1); MONO % 5.5 % (3.8-10.2); NEUT % 57.9 % (42.8-82.8); PLATELET COUNT 331 10^3/uL (134-434); RBC 4.23 M/mm3 (3.60-5.2); RDW 12.7 % (11.6-15.6); WHITE BLOOD COUNT 7.2 K/mm3 (4.0-10.0)
[2024-01-29 16:26] LABS: INR 1.03 (0.83-1.09)
[2024-01-29 16:29] LABS: ACTIVATED PTT 28.9 SECONDS (25.2-36.5)
[2024-01-29 16:31] LABS: POTASSIUM 4.4 mmol/L (3.5-5.1)
[2024-01-29 16:34] LABS: ALBUMIN 4.1 g/dl (3.4-5.0); BLOOD UREA NITROGEN 18.8 mg/dL (7-18); CALCIUM 10.2 mg/dL (8.5-10.1)
[2024-01-29 16:39] LABS: BILIRUBIN,TOTAL 0.6 mg/dL (0.2-1); TOT PROT 7.9 g/dl (6.4-8.2)
[2024-01-29] MEDS ORDERED: ACETAMINOPHEN INJECTION 100 ML IVPB ONE (18:13)
[2024-01-29] MEDS: ACETAMINOPHEN 1000 MG/100 ML BAG IVPB ONE (18:18)
[2024-01-29 20:20] VITALS: BP 154/65; PULSE 73; TEMP 98
[2024-01-29] MEDS: METOCLOPRAMIDE HCL INJECTION 10 MG/2 ML VIAL IVPB ONE (20:21)
[2024-01-29] MEDS ORDERED: METOCLOPRAMIDE HCL INJECTION 10 MG/2 ML VIAL ONE (20:23)
== END 2024-01-29 21:05 | disposition home or self-care (01) ==
LOC: JER 15:03
PROC: 3E033NZ Introduction of Analgesics, Hypnotics, Sedatives into Peripheral Vein, Percutaneous Approach (ICD-10-PCS; principal; 2024-01-29)
PROC: 3E033GC Introduction of Other Therapeutic Substance into Peripheral Vein, Percutaneous Approach (ICD-10-PCS; 2024-01-29)
DX: R51.9 Headache, unspecified (principal); I10 Essential (primary) hypertension; R07.89 Other chest pain
CPT/HCPCS: 36415; 70450-TC; 71046-TC-FY; 80053; 84484; 85025; 85610; 85730; 93005; 93010; 96374; 96375; 99285-25; J0131

== ENCOUNTER 2024-06-16 13:21 | Observation (INO) | payer MEDICARE, OTHER ==
[2024-06-16 15:45] LABS: BASO % 0.4 % (0-2.0); EOS % 3.7 % (0-4.5); HEMATOCRIT 35.6 % (32.4-45.2); HEMOGLOBIN 12.1 GM/dL (10.7-15.3); LYMPH % 29.9 % (8-40); MCH 29.4 pg (25.7-33.7); MCHC 33.9 g/dl (32.0-36.0); MEAN CELL VOLUME 86.8 fl (80-96); MEAN PLT VOLUME 7.4 fl (7.5-11.1); MONO % 6.3 % (3.8-10.2); NEUT % 59.7 % (42.8-82.8); PLATELET COUNT 324 10^3/uL (134-434); RDW 12.9 % (11.6-15.6); WHITE BLOOD COUNT 7.3 K/mm3 (4.0-10.0)
[2024-06-16] MEDS ORDERED: MECLIZINE HCL 25 MG TABLET (FP) ONE ×2 (15:49→18:45)
[2024-06-16] MEDS ORDERED: ACETAMINOPHEN INJECTION 100 ML IVPB ONE (15:49)
[2024-06-16] MEDS ORDERED: METOCLOPRAMIDE HCL INJECTION 10 MG/2 ML VIAL ONE (15:49)
[2024-06-16] MEDS: SODIUM CHLORIDE 1,000 ML IV STA (15:59)
[2024-06-16] MEDS: MECLIZINE HCL 25 MG TABLET (FP) PO ONE ×2 (15:59→18:53)
[2024-06-16] MEDS: ACETAMINOPHEN 1000 MG/100 ML BAG IVPB ONE (15:59)
[2024-06-16] MEDS: METOCLOPRAMIDE HCL INJECTION 10 MG/2 ML VIAL IVPB ONE (16:00)
[2024-06-16 16:13] LABS: POTASSIUM 4.3 mmol/L (3.5-5.1)
[2024-06-16 16:15] LABS: CALCIUM 9.9 mg/dL (8.5-10.1)
[2024-06-16 16:16] LABS: BLOOD UREA NITROGEN 13.3 mg/dL (7-18); MAGNESIUM 2.2 mg/dL (1.8-2.4)
[2024-06-16 16:19] LABS: CREATININE 0.9 mg/dL (0.55-1.3)
[2024-06-16 16:21] LABS: BILIRUBIN,TOTAL 0.5 mg/dL (0.2-1); TOT PROT 7.7 g/dl (6.4-8.2)
[2024-06-16] MEDS: ONDANSETRON 4 MG/2 ML VIAL IVPB ONE (17:53)
[2024-06-17 02:47] VITALS: BMI 26.4
[2024-06-17] MEDS: SODIUM CHLORIDE 0.45% 1,000 ML IV SCH (05:02)
[2024-06-17] MEDS: MECLIZINE HCL 25 MG TABLET (FP) PO SCH (05:26)
[2024-06-17] MEDS: INSULIN ASPART SLIDING SCALE (NOVOLOG) 1 VIAL SQ SCH (06:39)
[2024-06-17] MEDS: PANTOPRAZOLE 40 MG TABLET PO SCH (06:39)
[2024-06-17 09:53] LABS: BASO % 0.5 % (0-2.0); EOS % 2.1 % (0-4.5); HEMATOCRIT 33.8 % (32.4-45.2); HEMOGLOBIN 11.7 GM/dL (10.7-15.3); LYMPH % 24.2 % (8-40); MCH 29.6 pg (25.7-33.7); MCHC 34.6 g/dl (32.0-36.0); MEAN CELL VOLUME 85.6 fl (80-96); MEAN PLT VOLUME 8.5 fl (7.5-11.1); NEUT % 67.2 % (42.8-82.8); PLATELET COUNT 328 10^3/uL (134-434); RBC 3.96 M/mm3 (3.60-5.2); RDW 12.8 % (11.6-15.6)
[2024-06-17] MEDS ORDERED: ALBUTEROL SO4 HFA INHALER IH PRN (10:00)
[2024-06-17 10:13] LABS: POTASSIUM 4.3 mmol/L (3.5-5.1)
[2024-06-17 10:20] LABS: CALCIUM 9.2 mg/dL (8.5-10.1)
[2024-06-17 10:21] LABS: ALBUMIN 3.7 g/dl (3.4-5.0); MAGNESIUM 2.2 mg/dL (1.8-2.4)
[2024-06-17 10:23] LABS: CREATININE 0.7 mg/dL (0.55-1.3)
[2024-06-17 10:24] LABS: PHOSPHOROUS 2.8 mg/dL (2.5-4.9)
[2024-06-17 10:25] LABS: BILIRUBIN,TOTAL 0.6 mg/dL (0.2-1); TOT PROT 6.9 g/dl (6.4-8.2)
[2024-06-17] MEDS: ENOXAPARIN NA (PORCINE) 40 MG/0.4 ML DISP.SYRIN SQ SCH (10:27)
[2024-06-17] MEDS: RANOLAZINE E.R. 500 MG TABLET (FP) PO SCH (10:27)
[2024-06-17] MEDS: BUDESONIDE/FORMETEROL FUMARATE 160/4.5 mcg INHALER IH SCH (10:27)
[2024-06-17] MEDS: LOSARTAN POTASSIUM 50 MG TABLET PO SCH (10:27)
[2024-06-17] MEDS: PARoxetine HCL 10 MG TABLET PO SCH (10:27)
[2024-06-17] MEDS: DOCUSATE SODIUM 100 MG CAPSULE (FP) PO SCH (10:28)
[2024-06-17] MEDS: SPIRONOLACTONE 25 MG TABLET PO SCH (10:28)
[2024-06-17] MEDS: ROSUVASTATIN CA 20 MG TABLET PO SCH (22:37)
[2024-06-18 08:41] LABS: BASO % 0.3 % (0-2.0); EOS % 3.1 % (0-4.5); HEMATOCRIT 35.5 % (32.4-45.2); LYMPH % 32.2 % (8-40); MCH 29.5 pg (25.7-33.7); MCHC 33.7 g/dl (32.0-36.0); MEAN CELL VOLUME 87.4 fl (80-96); MEAN PLT VOLUME 7.6 fl (7.5-11.1); MONO % 7.2 % (3.8-10.2); NEUT % 57.2 % (42.8-82.8); PLATELET COUNT 303 10^3/uL (134-434); RBC 4.06 M/mm3 (3.60-5.2); RDW 12.8 % (11.6-15.6); WHITE BLOOD COUNT 9.1 K/mm3 (4.0-10.0)
[2024-06-18 09:03] LABS: ALBUMIN 3.8 g/dl (3.4-5.0); BLOOD UREA NITROGEN 8.5 mg/dL (7-18); CALCIUM 9.2 mg/dL (8.5-10.1)
[2024-06-18 09:04] LABS: MAGNESIUM 2.2 mg/dL (1.8-2.4)
[2024-06-18 09:06] VITALS: BP 152/64; PULSE 72; RESP 17; TEMP 98.1
[2024-06-18 09:07] LABS: CREATININE 0.8 mg/dL (0.55-1.3)
[2024-06-18 09:08] LABS: BILIRUBIN,TOTAL 0.6 mg/dL (0.2-1); TOT PROT 7.2 g/dl (6.4-8.2)
== END 2024-06-18 10:59 | disposition home or self-care (01) ==
LOC: JER 13:21 → JERBED 20:16 → J7W 06-17 00:53
PROVIDERS: ADMIT Internal Medicine; ATTEND Nurse Practitioner Acute Care
PROC: 3E033NZ Introduction of Analgesics, Hypnotics, Sedatives into Peripheral Vein, Percutaneous Approach (ICD-10-PCS; principal; 2024-06-16)
PROC: 3E023GC Introduction of Other Therapeutic Substance into Muscle, Percutaneous Approach (ICD-10-PCS; 2024-06-16)
PROC: 3E033GC Introduction of Other Therapeutic Substance into Peripheral Vein, Percutaneous Approach (ICD-10-PCS; 2024-06-16)
PROC: 3E0337Z Introduction of Electrolytic and Water Balance Substance into Peripheral Vein, Percutaneous Approach (ICD-10-PCS; 2024-06-16)
DX: R42 Dizziness and giddiness (principal); E11.9 Type 2 diabetes mellitus without complications; I25.10 Atherosclerotic heart disease of native coronary artery without angina pectoris; I11.9 Hypertensive heart disease without heart failure; J42 Unspecified chronic bronchitis; Z86.73 Personal history of transient ischemic attack (TIA), and cerebral infarction without residual deficits; Z88.0 Allergy status to penicillin
CPT/HCPCS: 36415; 70450-TC; 80053; 82962; 83735; 84100; 84439; 84443; 84484; 85025; 87635; 93005; 93010; 93306-TC; 96361; 96372; 96374; 96375; 97116-GP; 97161-GP; 99285-25; G0378; J0131

== ENCOUNTER 2025-04-21 08:30 | Emergency (ER) | payer MEDICARE, OTHER ==
[2025-04-21 08:39] VITALS: TEMP 97.8; BMI 23.3
[2025-04-21 09:15] LABS: HEMATOCRIT 37.9 % (34.1-44.9); HEMOGLOBIN 12.5 g/dL (11.2-15.7); MEAN CELL VOLUME 89.4 fl (79.4-94.8); MEAN PLT VOLUME 9.3 fl (9.4-12.3); PLATELET COUNT 289 x10^3/uL (182-369); WHITE BLOOD COUNT 8.7 x10^3/uL (3.98-10.04)
[2025-04-21] MEDS ORDERED: METOCLOPRAMIDE HCL INJECTION 10 MG/2 ML VIAL ONE (09:17)
[2025-04-21] MEDS ORDERED: ACETAMINOPHEN INJECTION 100 ML ONE (09:18)
[2025-04-21] MEDS: METOCLOPRAMIDE HCL INJECTION 10 MG/2 ML VIAL IVPB ONE (09:26)
[2025-04-21] MEDS: ACETAMINOPHEN 1000 MG/100 ML BAG IVPB ONE (09:26)
[2025-04-21] MEDS: SODIUM CHLORIDE 0.9% 500 ML INFUS.BAG IV ONE (09:26)
[2025-04-21 09:30] LABS: INR 1.04 (0.83-1.09); PROTHROMBIN TIME (PATIENT) 11.4 SEC (9.7-13.0)
[2025-04-21 09:33] LABS: ACTIVATED PTT 30.1 SECONDS (25.2-36.5)
[2025-04-21 09:43] LABS: POTASSIUM 4.5 mmol/L (3.5-5.1)
[2025-04-21 09:48] LABS: ALBUMIN 4.4 g/dl (3.4-5.0); BLOOD UREA NITROGEN 13.2 mg/dL (7-18)
[2025-04-21 09:51] LABS: BILIRUBIN,TOTAL 0.4 mg/dL (0.2-1); CREATININE 0.8 mg/dL (0.55-1.3)
[2025-04-21 10:03] LABS: CALCIUM 9.8 mg/dL (8.5-10.1)
[2025-04-21 10:50] VITALS: BP 161/78; PULSE 94; RESP 17
== END 2025-04-21 11:14 | disposition home or self-care (01) ==
LOC: JER 08:30
PROC: 3E033NZ Introduction of Analgesics, Hypnotics, Sedatives into Peripheral Vein, Percutaneous Approach (ICD-10-PCS; principal; 2025-04-21)
PROC: 3E033GC Introduction of Other Therapeutic Substance into Peripheral Vein, Percutaneous Approach (ICD-10-PCS; 2025-04-21)
DX: R07.89 Other chest pain (principal); G89.29 Other chronic pain; R51.9 Headache, unspecified; I10 Essential (primary) hypertension; M54.6 Pain in thoracic spine; M54.2 Cervicalgia
CPT/HCPCS: 36415; 71046-TC-FY; 80053; 84484; 85027; 85610; 85730; 93005; 93010; 96374; 96375; 99285-25